=== PATIENT | male | born 1965 | race Caucasian/White ===

== ENCOUNTER 2019-01-26 15:22 | Inpatient (IN) ==
[2019-01-26 17:01] LABS: Albumin Globulin Ratio 0.4 (0.9-2); Albumin Level 1.9 gm/dl (3.4-5.0); BUN Creatinine Ratio 7.3 (10-20); Bilirubin,Total 14.7 mg/dl (0.2-1); Calcium 7.8 mg/dl (8.5-10.1); Est GFR (African American) 135.9; Est GFR (Non-African American) 117.2; Globulin 4.3 gm/dl (2.5-4.0); Total Protein 6.2 gm/dl (6.4-8.2)
[2019-01-26 17:22] LABS: Hematocrit (blood only) 29.9 % (42-52); Hemoglobin 9.8 g/dL (14.0-18.0); Mean Corpuscular Hgb Conc 32.8 g/dL (32-36); Mean Corpuscular Volume 94.6 fL (80-100); Mean Platelet Volume 10.3 fL (7.4-10.4); Platelet Count 78 K/uL (130-400); RDW Coefficient of Variation 17.3 % (11.5-14.5); RDW Standard Deviation 58.9 fL (36.4-46.3); Red Blood Count 3.16 M/uL (4.7-6.1); White Blood Count 4.79 K/uL (4.8-10.8)
[2019-01-26 17:23] LABS: Basophils # (auto) 0.03 K/uL (0-0.2); Basophils % (auto) 0.6 %; Eosinophils # (auto) 0.11 K/uL (0-0.5); Eosinophils % (auto) 2.3 %; Immature Granulocytes # (auto) 0.05 K/uL (0.00-0.02); Lymphocytes # (auto) 0.71 K/uL (1.2-3.4); Lymphocytes % (auto) 14.8 %; Monocytes # (auto) 0.78 K/uL (0.11-0.59); Monocytes % (auto) 16.3 %; Neutrophils # (auto) 3.11 K/uL (1.4-6.5)
[2019-01-26] MEDS ORDERED: SODIUM CHLORIDE 0.9% 1000ML 1,000 ML IV SCH (18:30)
[2019-01-26 18:57] LABS: Appearance Urine Clear (Clear); Color Urine Orange; Protein Urine Negative (Negative); Sulfosalicylic Acid Urine Negative (Negative)
[2019-01-26 18:59] LABS: RBC Urine 0-4 /hpf (0-4); WBC Urine 0-5 /hpf (0-5)
[2019-01-26 19:00] LABS: Bacteria Urine Negative (Negative)
[2019-01-26 19:00] LABS: INR 2.3 (0.9-1.1); Partial Thromboplastin Ratio 1.6; Partial Thromboplastin Time 43.2 Seconds (21.0-31.0); Prothrombin Time 22.4 Seconds (9.0-12.0)
[2019-01-26] MEDS ORDERED: IOVERSOL 100ml IV PRN (19:25)
--- NOTE | 2019-01-26 19:44 | CT Scan Report ---
CT abd pelvis IV con only CLINICAL HISTORY: 53 years-old Male presenting with painless jaundice. TECHNIQUE: Multidetector CT of the abdomen and pelvis was performed after the administration of intra venous contrast. IV contrast: 94 mL of Optiray 320. One or more dose lowering techniques were used co nsistent with the principles of ALARA (as low as reasonably achievable), including automatic exposure control, mA or kV adjustment to individual patient size, and/or use of iterative reconstruction. COMPARISON: None. CT DOSE (mGy.cm): The estimated cumulative dose is 1277.22 mGy.cm. FINDINGS: Stereo Plotter Operator topogram: Unremarkable. Lung bases: Mild multichamber enlargement of the heart. Coronary artery calcification. No pericardial or pleural effusion. No focal infiltrate or nodule at the lung bases. Liver: Cirrhotic morphology of the liver. Well-defined low-density 18 mm and 10 mm lesions in the rig ht hepatic lobe, nonspecific on this single phase exam. Patent hepatic vasculature. Recanalization an d extreme dilatation of the paraumbilical vein. Biliary: No intrahepatic or extrahepatic biliary ductal dilatation. Gallbladder decompressed. Pancreas: Normal. Spleen: Enlarged measuring 17.2 cm in maximal sagittal dimension. Pancreatic duct is nondilated. Adrenal glands: Normal. Kidneys and ureters: Normal. No hydronephrosis. Bladder: Incompletely evaluated secondary to underdistention. Pelvic organs: Prostate and seminal vesicles normal. Bowel: Normal. No bowel obstruction. The appendix is not visualized. Trace wall thickening of the cec um. Feces noted in the terminal ileum. No bowel obstruction. Mild wall thickening of proximal small b owel is suspected. Peritoneal cavity: Small volume of abdominal pelvic ascites, grossly simple appearing. No free intrap eritoneal gas. Lymph nodes: No enlarged lymph nodes in the abdomen or pelvis. Vasculature: Aorta and IVC patent and normal in caliber. Prominent abdominal wall collateral vessels some of which represent caput medusae. Prominent retroperitoneal and perisplenic varices also evident . Limited perigastric varices. Mesenteric varices also noted. Abdominal wall: Moderate body wall edema. Musculoskeletal: Normal. IMPRESSION: 1. Cirrhosis with portal hypertension evidenced by varices, ascites, and moderate splenomegaly. This most likely accounts for the patient's hyperbilirubinemia. 2. No evidence of a pancreatic mass allowing for this single phase examination. No pancreatic or ranulfo iary ductal dilatation. 3. Indeterminate hypodense lesions in the liver, possibly cysts. Evaluation is not tailored for dete ction of hepatocellular carcinoma on this single phase examination. 4. Volume overload with body wall edema. 5. Mild cardiomegaly. Electronically signed by: Lan Sanchez M.D. 01/26/2019 7:42 PM
--- NOTE | 2019-01-26 21:37 | Emergency Department Note ---
Entered by Mayra Sung acting as a scribe for History of Present Illness General Chief complaint: Swelling/Edema to Extremity Stated complaint: RETAINING FLUID SENT BY DR. FRIAS Source: patient History of Present Illness Onset (ago): week(s) (several) Location: abdomen and lower extremity Pain Consistency: + other (worsening) Quality: + other (swelling) Associated symptoms: + fever/chills (positive chills; negative fevers) and + other (positive yellowing of skin and eyes; positive fullness in abdomen; negative abdominal pain; negative change in vision); no chest pain, no headaches, no nausea/vomiting and no shortness of breath The patient is a 53 year old male who presents to the Emergency Room with complaints of worsening swelling that began several weeks prior to arrival. The patient states that this began with cramping in his hands and forearms and progressed to swelling in his legs and abdomen. The patient states that during this time he has felt dehydrated so he has been drinking more fluids. He reports persistent chills during this time, but denies fever. The patient states that he has a feeling of fullness in his abdomen but denies abdominal pain. The patient's mother states approximately 3 days ago the patient's skin and eyes began turning yellow. He denies chest pain, shortness of breath, headache, change in vision, and vomiting. The patient states that he saw his PCP in [place] today and was sent here for further evaluation. The patient denies smoking cigarettes or drinking alcohol. He reports a history of hemochromatosis and states that he has had previous yellow tints to his skin but states that these episodes have resolved on their own. The patient states that he was previously on Lasix, but states that he is unsure if this was stopped by him or by his doctors. 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 Home Medications Home Medications Medication Instructions Recorded Confirmed Type ergocalciferol (vitamin D2) 50,000 unit PO WK 01/26/19 01/26/19 History [Vitamin D2] furosemide 20 mg PO BID 01/26/19 01/26/19 History lactulose 30 ml PO BID 01/26/19 01/26/19 History magnesium oxide 400 mg PO BID 01/26/19 01/26/19 History metoprolol succinate 25 mg PO DAILY 01/26/19 01/26/19 History omeprazole 20 mg PO DAILY 01/26/19 01/26/19 History spironolactone 100 mg PO DAILY 01/26/19 01/26/19 History topiramate 50 mg PO BID 01/26/19 01/26/19 History zinc 50 mg PO BID 01/26/19 01/26/19 History Allergies Allergy/AdvReac Type Severity Reaction Status Date / Time No Known Allergies Allergy Unverified 01/26/19 21:39 Past Med/Surg History Medical History Hemochromatosis (Chronic) Hypertension (Chronic) Family History Other No pertinent family history in first degree relatives Social History Preferred Language: Azeri Communication Ability: Effective Utility Operator Required: No Beliefs That Will Affect Care: None Current Living Situation: Family Other Information That Helps Us Care for You: No Feels Safe at Home: Yes Safety Concerns: Feels Safe At This Time Smoking Status: Unknown if ever smoked Hx Alcohol Use: No (hx of alcoholism) Hx Substance Use: No Review of Systems See HPI for pertinent positives & negatives. and A total of 10 systems reviewed and were otherwise negative Physical Exam Vital Signs Vital Signs - 24 hr 01/26/19 15:31 01/26/19 20:00 01/26/19 22:08 Temperature 36.8 C Temperature Source Oral Pulse Rate 104 H Pulse Rate [Right Finger] 83 105 H Pulse Rhythm [Right Finger] Regular Respiratory Rate 20 20 20 Respiratory Effort / Characteristics Non-Labored Respiratory Depth Normal Blood Pressure 156/84 H Blood Pressure [Right Arm] 146/90 H 156/90 H Blood Pressure Mean 108 Blood Pressure Mean [Right Arm] 108 112 Blood Pressure Position [Right Arm] Lying Pulse Oximetry 99 97 96 Oxygen Delivery Method Room Air Room Air Room Air Sepsis Recent Fever Within 48 Hours No Sepsis New/Unexplained Change in Mental Status No Sepsis Action Taken by Nursing No Action Required Vital signs reviewed. General: Chronically ill-appearing 53 year old male, in no significant distress. HEENT: Positive scleral icterus, PERRLA, neck supple. Atraumatic. Cardiovascular: Regular rate and rhythm, no extra sounds. Pulmonary: Clear to auscultation bilaterally, normal work of breathing. Abdomen: Soft, moderately distended, tender to palpation of the right upper quadrant, positive bowel sounds. Musculoskeletal: Atraumatic. 3+ pitting edema of the bilateral lower extremities. Neurologic: Patient awake alert and oriented x 3. Skin: Warm, dry, no rash Course Course 1834: Past medical records reviewed. The patient was evaluated in room B7. A complete history and physical exam was performed. 1935: I checked on and updated the patient on all results. He is in agreement with the treatment plan. 2057: [facility] for further evaluation. Administered Medications Albumin Human (Albumin 25%) 50 mls @ 50 mls/hr IV Q1H KESHAV Stop: 01/27/19 03:14 Last Admin: 01/27/19 00:12 Dose: 50 mls/hr Documented by: [id number] Discontinued Medications Furosemide (Lasix) Confirm Administered Dose 40 mg IV .[facility] Stop: 01/26/19 22:55 Last Admin: 01/26/19 22:58 Dose: 20 mg Documented by: [id number] Furosemide (Lasix) 20 mg IV NOW STA Stop: 01/26/19 22:57 Last Admin: 01/26/19 23:00 Dose: Not Given Documented by: [id number] Sodium Chloride (Nss 1000ml) 1,000 mls @ 125 mls/hr IV .Q8H KESHAV Stop: 02/25/19 18:29 Last Admin: 01/26/19 20:02 Dose: 125 mls/hr Documented by: [id number] Ioversol (Optiray 320 100ml) 94 ml IV ONCE PRN PRN Reason: Interaction Checking Stop: 01/30/19 19:24 Last Admin: 01/26/19 19:26 Dose: 94 ml Documented by: [id number] Medical Decision Making Differential Diagnosis Differential diagnoses include end stage liver disease, cholangitis, obstructing pancreatic mass, splenic sequestration, and others were considered. Medical Records Attestation: I reviewed the patient's medical records. Home Medications Current Medication List: was personally reviewed by me Laboratory Data Attestation: I reviewed the patient's lab results. Result diagrams: 01/26/19 15:55 01/26/19 15:55 Lab Results 01/26/19 01/26/19 01/26/19 Range/Units 15:55 15:55 15:55 WBC 4.79 L (4.8-10.8) K/uL RBC 3.16 L (4.7-6.1) M/uL Hgb 9.8 L (14.0-18.0) g/dL Hct 29.9 L (42-52) % MCV 94.6 (80-100) fL MCH 31.0 (25-34) pg MCHC 32.8 (32-36) g/dL RDW Std Deviation 58.9 H (36.4-46.3) fL RDW Coeff of Joey 17.3 H (11.5-14.5) % Plt Count 78 L (130-400) K/uL MPV 10.3 (7.4-10.4) fL Immature Gran % (Auto) 1.0 % Neut % (Auto) 65.0 % Lymph % (Auto) 14.8 % [place] % (Auto) 16.3 % Eos % (Auto) 2.3 % Baso % (Auto) 0.6 % Immature Gran # (Auto) 0.05 H (0.00-0.02) K/uL Neut # (Auto) 3.11 (1.4-6.5) K/uL Lymph # (Auto) 0.71 L (1.2-3.4) K/uL [place] # (Auto) 0.78 H (0.11-0.59) K/uL Eos # (Auto) 0.11 (0-0.5) K/uL Baso # (Auto) 0.03 (0-0.2) K/uL PT 22.4 H (9.0-12.0) Seconds INR 2.3 H (0.9-1.1) APTT 43.2 H (21.0-31.0) Seconds PTT Ratio 1.6 Sodium 126 L (136-145) mmol/L Potassium 4.0 (3.5-5.1) mmol/L Chloride 96 L (98-107) mmol/L Carbon Dioxide 22 (21-32) mmol/L Anion Gap 8.0 (3-11) BUN 4 L (7-18) mg/dl Creatinine 0.58 L (0.6-1.4) mg/dl Est Cr Clr Drug Dosing 185.0 ml/min Est GFR ( Amer) 135.9 Est GFR (Non-Af Amer) 117.2 BUN/Creatinine Ratio 7.3 L (10-20) Glucose 96 (70-99) mg/dl Calcium 7.8 L (8.5-10.1) mg/dl Total Bilirubin 14.7 H (0.2-1) mg/dl Direct Bilirubin (0-0.2) mg/dl AST 54 H (15-37) U/L ALT 33 (12-78) U/L Alkaline Phosphatase 151 H (45-117) U/L Total Protein 6.2 L (6.4-8.2) gm/dl Albumin 1.9 L (3.4-5.0) gm/dl Globulin 4.3 H (2.5-4.0) gm/dl Albumin/Globulin Ratio 0.4 L (0.9-2) Urine Color Urine Appearance (Clear) Urine pH (4.5-7.5) Ur Specific [place] (1.000-1.060) Urine Protein (Negative) Urine Glucose (UA) (Negative) Urine Ketones (Negative) Urine Blood (Negative) Urine Nitrite (Negative) Urine Bilirubin (Negative) Urine Urobilinogen (Negative) Ur Leukocyte Esterase (Negative) Urine RBC (0-4) /hpf Urine WBC (0-5) /hpf Ur Epithelial Cells (0-5) /lpf Urine Bacteria (Negative) 01/26/19 01/26/19 Range/Units 15:55 18:40 WBC (4.8-10.8) K/uL RBC (4.7-6.1) M/uL Hgb (14.0-18.0) g/dL Hct (42-52) % MCV (80-100) fL MCH (25-34) pg MCHC (32-36) g/dL RDW Std Deviation (36.4-46.3) fL RDW Coeff of Joey (11.5-14.5) % Plt Count (130-400) K/uL MPV (7.4-10.4) fL Immature Gran % (Auto) % Neut % (Auto) % Lymph % (Auto) % [place] % (Auto) % Eos % (Auto) % Baso % (Auto) % Immature Gran # (Auto) (0.00-0.02) K/uL Neut # (Auto) (1.4-6.5) K/uL Lymph # (Auto) (1.2-3.4) K/uL [place] # (Auto) (0.11-0.59) K/uL Eos # (Auto) (0-0.5) K/uL Baso # (Auto) (0-0.2) K/uL PT (9.0-12.0) Seconds INR (0.9-1.1) APTT (21.0-31.0) Seconds PTT Ratio Sodium (136-145) mmol/L Potassium (3.5-5.1) mmol/L Chloride (98-107) mmol/L Carbon Dioxide (21-32) mmol/L Anion Gap (3-11) BUN (7-18) mg/dl Creatinine (0.6-1.4) mg/dl Est Cr Clr Drug Dosing ml/min Est GFR ( Amer) Est GFR (Non-Af Amer) BUN/Creatinine Ratio (10-20) Glucose (70-99) mg/dl Calcium (8.5-10.1) mg/dl Total Bilirubin (0.2-1) mg/dl Direct Bilirubin 9.4 H (0-0.2) mg/dl AST (15-37) U/L ALT (12-78) U/L Alkaline Phosphatase (45-117) U/L Total Protein (6.4-8.2) gm/dl Albumin (3.4-5.0) gm/dl Globulin (2.5-4.0) gm/dl Albumin/Globulin Ratio (0.9-2) Urine Color [place] Urine Appearance Clear (Clear) Urine pH (4.5-7.5) Ur Specific [place] 1.020 (1.000-1.060) Urine Protein Negative (Negative) Urine Glucose (UA) (Negative) Urine Ketones (Negative) Urine Blood (Negative) Urine Nitrite (Negative) Urine Bilirubin (Negative) Urine Urobilinogen (Negative) Ur Leukocyte Esterase (Negative) Urine RBC 0-4 (0-4) /hpf Urine WBC 0-5 (0-5) /hpf Ur Epithelial Cells 5-10 H (0-5) /lpf Urine Bacteria Negative (Negative) Imaging Data Radiologist's Impression: Radiology results as stated below per my review and the radiologist's interpretation: CT abd pelvis IV con only CLINICAL HISTORY: 53 years-old Male presenting with painless jaundice. TECHNIQUE: Multidetector CT of the abdomen and pelvis was performed after the administration of intravenous contrast. IV contrast: 94 mL of Optiray 320. One or more dose lowering techniques were used consistent with the principles of ALARA (as low as reasonably achievable), including automatic exposure control, mA or kV adjustment to individual patient size, and/or use of iterative rec onstruction. COMPARISON: None. CT DOSE (mGy.cm): The estimated cumulative dose is 1277.22 mGy.cm. FINDINGS: Customer Service Attendant topogram: Unremarkable. Lung bases: Mild multichamber enlargement of the heart. Coronary artery calcification. No pericardial or pleural effusion. No focal infiltrate or nodule at the lung bases. Liver: Cirrhotic morphology of the liver. Well-defined low-density 18 mm and 10 mm lesions in the right hepatic lobe, nonspecific on this single phase exam. Patent hepatic vasculature. Recanalization and extreme dilatation of the paraumbilical vein. Biliary: No intrahepatic or extrahepatic biliary ductal dilatation. Gallbladder decompressed. Pancreas: Normal. Spleen: Enlarged measuring 17.2 cm in maximal sagittal dimension. Pancreatic duct is nondilated. Adrenal glands: Normal. Kidneys and ureters: Normal. No hydronephrosis. Bladder: Incompletely evaluated secondary to underdistention. Pelvic organs: Prostate and seminal vesicles normal. Bowel: Normal. No bowel obstruction. The appendix is not visualized. Trace wall thickening of the cecum. Feces noted in the terminal ileum. No bowel obstruction. Mild wall thickening of proximal small bowel is suspected. Peritoneal cavity: Small volume of abdominal pelvic ascites, grossly simple appearing. No free intraperitoneal gas. Lymph nodes: No enlarged lymph nodes in the abdomen or pelvis. Vasculature: Aorta and IVC patent and normal in caliber. Prominent abdominal wall collateral vessels some of which represent caput medusae. Prominent retroperitoneal and perisplenic varices also evident. Limited perigastric joey ices. Mesenteric varices also noted. Abdominal wall: Moderate body wall edema. Musculoskeletal: Normal. IMPRESSION: 1. Cirrhosis with portal hypertension evidenced by varices, ascites, and moderate splenomegaly. This most likely accounts for the patient's hyperbilirubinemia. 2. No evidence of a pancreatic mass allowing for this single phase examination. No pancreatic or biliary ductal dilatation. 3. Indeterminate hypodense lesions in the liver, possibly cysts. Evaluation is not tailored for detection of hepatocellular carcinoma on this single phase examination. 4. Volume overload with body wall edema. 5. Mild cardiomegaly. Electronically signed by: Lan Sanchez M.D. 01/26/2019 7:42 PM Blood Pressure Blood Pressure Findings: Elevated blood pressure Blood Pressure Disposition: further management by hospitalist JULIET Narrative This patient was evaluated and appeared to be in no significant distress. Patient is chronically ill-appearing with a distended abdomen. He is notably jaundiced and has some mild right upper quadrant tenderness. Laboratory work reveals a marked hyperbilirubinemia. Liver enzymes are otherwise reassuring. Patient's INR is elevated at 2.3 without history of anticoagulation. I suspect the patient is suffering from an acute decompensation of liver function related to his hemochromatosis. Patient's mother states she has difficulty convincing him to be seen by doctors. Patient is slightly anemic although stable. CT scan of the abdomen pelvis is read as cirrhosis with portal hypertension. There is no evidence of pancreatic mass. He was advised of the findings. Impression & Plan End-stage liver disease, Hyperbilirubinemia Discharge Plan Visit Data *Final* Discharge Date/Time: 01/26/19 23:00 Chief Complaint: Swelling/Edema to Extremity Stated Complaint: RETAINING FLUID SENT BY DR. FRIAS ED Provider: Carrol Moscoso Discharge Problem: End-stage liver disease, Hyperbilirubinemia Patient Disposition: Admitted As Inpatient Discharge Instructions Interventions: ED Discharge Assessment Last Done: 01/26/19 23:00 The scribe's documentation has been prepared under my direction and personally reviewed by me in its entirety. I confirm that the note above accurately reflects all work, treatment, procedures, and medical decision making performed by me.
[2019-01-26] MEDS ORDERED: FUROSEMIDE 40 MG/4 ML VIAL IV STA ×2 (22:50→22:56)
[2019-01-26] MEDS ORDERED: FUROSEMIDE 40 MG/4 ML VIAL IV ONE (22:54)
--- NOTE | 2019-01-26 22:55 | History & Physical Report ---
Date of Service January 26, 2019 Assessment & Plan (1) Hemochromatosis: 53-year-old male with history of hemochromatosis, cirrhosis with portal hypertension, varices ascites and splenomegaly, hypertension, GERD presents with concern of worsening edema x3 weeks. Worsening edema in the setting of cirrhosis with portal hypertension, varices, ascites and splenomegaly Cirrhosis likely secondary to hemochromatosis [facility] abdomen: Cirrhosis portal hypertension, varices, ascites moderate splenomegaly, no pancreatic mass, indeterminate hypodense lesions in the livercysts however cannot rule out HCC, volume overloadbowel wall edema, mild cardiomegaly LFT: Total bili 14.1, DB 9.4, AST 54, ALT 33, albumin 1.9, alk phos 151 INR 2.3, creatinine 0.58, sodium 126 -meld score of 31 - 52.6% 3-month mortality Ammonia level pending Hepatitis panel, AFP, EtOH and Tylenol level ordered CT 4 phase for HCC ordered Given a dose of Lasix 20 mg IV Consider further diuresis as indicated Albumin 25% x 3 bags Continue home lactulose and spironolactone GI consulted Heart murmur Concern for palpitations, chest pain or shortness of breath Chest x-ray: Negative EK normal sinus rhythm, QTC 449 poor R wave progression Echo ordered Hypertension Continue home metoprolol History of memory problems, headache? Continue home topiramate and zinc GERD Continue home omeprazole FEN/GI: Albumin 25% x 3, heart healthy diet with sodium and fluid restriction 15 00 cc DVT prophylaxis: Contraindicated, encourage ambulation Code: Full Position: MedSurg with telemetry (2) Hypertension: (3) Cirrhosis: History of Present Illness Chief Complaint: Edema Primary Care Provider: Dom Benton 53-year-old male with history of hemochromatosis, cirrhosis with portal hypertension, varices ascites and splenomegaly, hypertension, GERD presents with concern of worsening edema x3 weeks. Associated with the muscle cramps. Reports he feels dehydrated and has muscle cramps but when drinks fluids he retains more. Reports previous episodes of lower extremity edema which never lasted this long and resolved. This episode has been progressively getting worse and not better. Now having edema all over including abdomen. Patient reports being diagnosed with hemochromatosis and cirrhosis at about age 46. He follows with Dr. Sally Porras GI. He reports watching his salt intake and fluid intake as well. Takes lactulose and has about 4 loose bowel movements per day. Is also on diuretics Lasix and spironolactone at home. Urine is on and off very dark/orange in color depending on his bili levels. Denies any fever, chills, shortness of breath, chest pain, headache, lightheadedness, nausea, vomiting, abdominal pain, constipation, hematuria hematochezia, melena, hematuria and dysuria Allergies Allergy/AdvReac Type Severity Reaction Status Date / Time No Known Allergies Allergy Unverified 01/26/19 21:39 Home Medications Home Medications Medication Instructions Recorded Confirmed Type ergocalciferol (vitamin D2) 50,000 unit PO WK 01/26/19 01/26/19 History [Vitamin D2] furosemide 20 mg PO BID 01/26/19 01/26/19 History lactulose 30 ml PO BID 01/26/19 01/26/19 History magnesium oxide 400 mg PO BID 01/26/19 01/26/19 History metoprolol succinate 25 mg PO DAILY 01/26/19 01/26/19 History omeprazole 20 mg PO DAILY 01/26/19 01/26/19 History spironolactone 100 mg PO DAILY 01/26/19 01/26/19 History topiramate 50 mg PO BID 01/26/19 01/26/19 History zinc 50 mg PO BID 01/26/19 01/26/19 History Past Med/Surg History Medical History Hemochromatosis (Chronic) Hypertension (Chronic) Family History Other No pertinent family history in first degree relatives Social History Preferred Language: Beninese Communication Ability: Effective Manager Transfer Required: No Beliefs That Will Affect Care: None Current Living Situation: Family Other Information That Helps Us Care for You: No Feels Safe at Home: Yes Safety Concerns: Feels Safe At This Time Smoking Status: Unknown if ever smoked Hx Alcohol Use: No (hx of alcoholism) Hx Substance Use: No Review of Systems Review of Systems: As per HPI Physical Exam Physical Exam: General: In NAD Neuro: A&O x 4, mild asterixes Pulm: CTAB equal breath sounds bilaterally CV: RRR, 3/6 systolic murmur, no r/g, Abdomen:+BS, mild TTP in RUQ, distended with shifting dullness, hepatosplenomegaly LE: 2-3+ LE edema with tenderness to palpation Results & Data Vital Signs (Past 12 Hours) Vital Signs Temp Pulse Pulse Resp BP BP Pulse Ox 01/26/19 22:08 105 H 20 156/90 H 96 01/26/19 20:00 83 20 146/90 H 97 01/26/19 15:31 36.8 C 104 H 20 156/84 H 99 Laboratory Results Abnormal lab results 01/26/19 01/26/19 01/26/19 Range/Units 15:55 15:55 15:55 WBC 4.79 L (4.8-10.8) K/uL RBC 3.16 L (4.7-6.1) M/uL Hgb 9.8 L (14.0-18.0) g/dL Hct 29.9 L (42-52) % RDW Std Deviation 58.9 H (36.4-46.3) fL RDW Coeff of Joey 17.3 H (11.5-14.5) % Plt Count 78 L (130-400) K/uL Immature Gran # (Auto) 0.05 H (0.00-0.02) K/uL Lymph # (Auto) 0.71 L (1.2-3.4) K/uL Traverse # (Auto) 0.78 H (0.11-0.59) K/uL PT 22.4 H (9.0-12.0) Seconds INR 2.3 H (0.9-1.1) APTT 43.2 H (21.0-31.0) Seconds Sodium 126 L (136-145) mmol/L Chloride 96 L (98-107) mmol/L BUN 4 L (7-18) mg/dl Creatinine 0.58 L (0.6-1.4) mg/dl BUN/Creatinine Ratio 7.3 L (10-20) Calcium 7.8 L (8.5-10.1) mg/dl Total Bilirubin 14.7 H (0.2-1) mg/dl Direct Bilirubin (0-0.2) mg/dl AST 54 H (15-37) U/L Alkaline Phosphatase 151 H (45-117) U/L Total Protein 6.2 L (6.4-8.2) gm/dl Albumin 1.9 L (3.4-5.0) gm/dl Globulin 4.3 H (2.5-4.0) gm/dl Albumin/Globulin Ratio 0.4 L (0.9-2) Ur Epithelial Cells (0-5) /lpf 01/26/19 01/26/19 Range/Units 15:55 18:40 WBC (4.8-10.8) K/uL RBC (4.7-6.1) M/uL Hgb (14.0-18.0) g/dL Hct (42-52) % RDW Std Deviation (36.4-46.3) fL RDW Coeff of Joey (11.5-14.5) % Plt Count (130-400) K/uL Immature Gran # (Auto) (0.00-0.02) K/uL Lymph # (Auto) (1.2-3.4) K/uL Traverse # (Auto) (0.11-0.59) K/uL PT (9.0-12.0) Seconds INR (0.9-1.1) APTT (21.0-31.0) Seconds Sodium (136-145) mmol/L Chloride (98-107) mmol/L BUN (7-18) mg/dl Creatinine (0.6-1.4) mg/dl BUN/Creatinine Ratio (10-20) Calcium (8.5-10.1) mg/dl Total Bilirubin (0.2-1) mg/dl Direct Bilirubin 9.4 H (0-0.2) mg/dl AST (15-37) U/L Alkaline Phosphatase (45-117) U/L Total Protein (6.4-8.2) gm/dl Albumin (3.4-5.0) gm/dl Globulin (2.5-4.0) gm/dl Albumin/Globulin Ratio (0.9-2) Ur Epithelial Cells 5-10 H (0-5) /lpf Diagnostic Findings CT abd pelvis IV con only CLINICAL HISTORY: 53 years-old Male presenting with painless jaundice. TECHNIQUE: Multidetector CT of the abdomen and pelvis was performed after the administration of intravenous contrast. IV contrast: 94 mL of Optiray 320. One or more dose lowering techniques were used consistent with the principles of ALARA (as low as reasonably achievable), including automatic exposure control, mA or kV adjustment to individual patient size, and/or use of iterative reconstruction. COMPARISON: None. CT DOSE (mGy.cm): The estimated cumulative dose is 1277.22 mGy.cm. FINDINGS: Subscription Crew Leader topogram: Unremarkable. Lung bases: Mild multichamber enlargement of the heart. Coronary artery calcification. No pericardial or pleural effusion. No focal infiltrate or nodule at the lung bases. Liver: Cirrhotic morphology of the liver. Well-defined low-density 18 mm and 10 mm lesions in the right hepatic lobe, nonspecific on this single phase exam. Patent hepatic vasculature. Recanalization and extreme dilatation of the paraumbilical vein. Biliary: No intrahepatic or extrahepatic biliary ductal dilatation. Gallbladder decompressed. Pancreas: Normal. Spleen: Enlarged measuring 17.2 cm in maximal sagittal dimension. Pancreatic duct is nondilated. Adrenal glands: Normal. Kidneys and ureters: Normal. No hydronephrosis. Bladder: Incompletely evaluated secondary to underdistention. Pelvic organs: Prostate and seminal vesicles normal. Bowel: Normal. No bowel obstruction. The appendix is not visualized. Trace wall thickening of the cecum. Feces noted in the terminal ileum. No bowel obstruction. Mild wall thickening of proximal small bowel is suspected. Peritoneal cavity: Small volume of abdominal pelvic ascites, grossly simple appearing. No free intraperitoneal gas. Lymph nodes: No enlarged lymph nodes in the abdomen or pelvis. Vasculature: Aorta and IVC patent and normal in caliber. Prominent abdominal wall collateral vessels some of which represent caput medusae. Prominent retroperitoneal and perisplenic varices also evident. Limited perigastric varices. Mesenteric varices also noted. Abdominal wall: Moderate body wall edema. Musculoskeletal: Normal. IMPRESSION: 1. Cirrhosis with portal hypertension evidenced by varices, ascites, and moderate splenomegaly. This most likely accounts for the patient's hyperbilirubinemia. 2. No evidence of a pancreatic mass allowing for this single phase examination. No pancreatic or biliary ductal dilatation. 3. Indeterminate hypodense lesions in the liver, possibly cysts. Evaluation is not tailored for detection of hepatocellular carcinoma on this single phase examination. 4. Volume overload with body wall edema. 5. Mild cardiomegaly. Medications Administered Current Inpatient Medications Sodium Chloride (Nss 1000ml) 1,000 mls @ 125 mls/hr IV .Q8H KESHAV Stop: 02/25/19 18:29 Last Admin: 01/26/19 20:02 Dose: 125 mls/hr Documented by: Ioversol (Optiray 320 100ml) 94 ml IV ONCE PRN PRN Reason: Interaction Checking Stop: 01/30/19 19:24 Last Admin: 01/26/19 19:26 Dose: 94 ml Documented by: Code Status & VTE Plan Code Status Full code per discussion with patient and mother VTE Prophylaxis Plan VTE Prophylaxis will be ordered: Yes Supervising Physician Co-Signing Physician Notes Patient seen and examined, chart reviewed, case discussed with Dr. Painter and I agree with her assessment and plan as documented above. Briefly, patient is a 53yo C male with h/o hereditary hemochromatosis diagnosed at age 46, known liver cirrhosis/portal HTN and varices presenting with decompensated cirrhosis. Worsening bilirubin/INR/Edema/jaundice. He reports compliance with medications. Denies fevers, abdominal pain, confusion or encephalopathy. On exam he is afebrile, HD stable General -chronically ill in appearance, +jaundice, icterus HEENT - mmm, neck supple Heart - +S1/S2, regular, 3/6 SOREN at RSB Lungs - CTA, diminished in bases Abd - +distention with bulging flanks, fluid wave, dilated tortuous veins Ext - +pitting edema Neuro - AA&O, no asterixis Labs and images reviewed. Assessment/Plan -Check CT abdomen to assess for HCC -Check AFP -Continue diuresis, cautiously, monitor renal function -GI consultation appreciated -Sodium and fluid restriction -Discussed with patient possible need for transfer to a transplant-capable facility -Remainder of plan as above Resident Activity Tracking Resident Involvement: Resident Care Provided Care Provided: Adult Hospital Medicine
[2019-01-27] MEDS: ALBUMIN 25% 50 ML IV SCH ×4 (00:12→02:30)
[2019-01-27] MEDS: TOPIRAMATE 50 MG TAB PO SCH ×3 (01:03→21:41)
[2019-01-27] MEDS ORDERED: IOVERSOL 100ml IV PRN (01:31)
[2019-01-27 02:39] LABS: Hepatitis B Surface Antigen Neg (Neg)
[2019-01-27 03:07] LABS: Hepatitis C IgG 13Yrs+Old_Rflx Neg (Neg)
--- NOTE | 2019-01-27 06:15 | XRay Report ---
XR chest 1V portable CLINICAL HISTORY: concern for pulmonary edema dyspnea. Pain. COMPARISON STUDY: No previous studies for comparison. FINDINGS: The bones soft tissues and hemidiaphragms are normal. The cardiomediastinal silhouette is n ormal. The lungs are clear. The pulmonary vasculature is normal. IMPRESSION: Negative chest. The above report was generated using voice recognition software. It may contain grammatical, syntax or spelling errors. Electronically signed by: Clint Lara M.D. 01/27/2019 6:13 AM
--- NOTE | 2019-01-27 06:36 | CT Scan Report ---
CT abdomen wo/w con CT DOSE: 4174.17 mGy.cm HISTORY: [address] for hcc, hx of cirrhosis TECHNIQUE: Multiaxial CT images of the abdomen was performed pre and post intravenous contrast enhanc ement. A dose lowering technique was utilized adhering to the principles of ALARA. COMPARISON STUDY: 01/26/2019 FINDINGS: No significant change from the prior study. Lung bases are clear. Findings of hepatic cirrh osis as well as hepatic cysts are unchanged. No significant space-occupying lesion of the liver is ap preciated. Multiple collateral vessels are present. Moderate ascites unchanged. Spleen is uniform. Kidneys enhan ce uniformly. No evidence for hydronephrosis. Multiple collateral vessels consistent with portal hypertension. Unchanged body wall anasarca. IMPRESSION: 1. No change compared to the prior study. 2. Hepatic cirrhosis, ascites, and findings of portal hypertension. 3. Unchanged findings of body wall anasarca 4. Multiple collateral vessels throughout the upper abdomen unchanged. 5. No significant space-occupying lesion of the liver. The above report was generated using voice recognition software. It may contain grammatical, syntax or spelling errors. Electronically signed by: Clint Lara M.D. 01/27/2019 6:34 AM
--- NOTE | 2019-01-27 07:02 | Billing Data ---
Coding Level of Care Code 88446 Initial Inpt Care Lvl 3
[2019-01-27 07:35] LABS: Hematocrit (blood only) 23.3 % (42-52); Hemoglobin 7.8 g/dL (14.0-18.0); Mean Corpuscular Hemoglobin 31.5 pg (25-34); Mean Corpuscular Hgb Conc 33.5 g/dL (32-36); RDW Coefficient of Variation 17.3 % (11.5-14.5); RDW Standard Deviation 59.1 fL (36.4-46.3); Red Blood Count 2.48 M/uL (4.7-6.1); White Blood Count 2.22 K/uL (4.8-10.8)
[2019-01-27] MEDS ORDERED: INFLUENZA ADMINISTRATION CHARGE ONE (07:45)
[2019-01-27] MEDS ORDERED: INFLUENZA VIRUS QUAD VACCINE 0.5 ML SYR IM ONE (07:45)
[2019-01-27 07:58] LABS: Mean Platelet Volume 9.5 fL (7.4-10.4); Platelet Count 44 K/uL (130-400)
[2019-01-27 07:59] LABS: Basophils # (auto) 0.01 K/uL (0-0.2); Basophils % (auto) 0.5 %; Eosinophils # (auto) 0.07 K/uL (0-0.5); Eosinophils % (auto) 3.2 %; Lymphocytes # (auto) 0.45 K/uL (1.2-3.4); Lymphocytes % (auto) 20.3 %; Monocytes # (auto) 0.39 K/uL (0.11-0.59); Monocytes % (auto) 17.6 %; Neutrophils % (auto) 58.4 %
[2019-01-27 08:01] LABS: Albumin Level 1.9 gm/dl (3.4-5.0); BUN Creatinine Ratio 7.1 (10-20); Bilirubin Direct 7.6 mg/dl (0-0.2); Calcium 7.5 mg/dl (8.5-10.1); Creatinine Clr Calc Pharmacy 187.4 ml/min; Est GFR (African American) 136.8; Est GFR (Non-African American) 118.1; Potassium 3.3 mmol/L (3.5-5.1)
[2019-01-27 08:04] LABS: Bilirubin,Total 12.8 mg/dl (0.2-1); Total Protein 5.2 gm/dl (6.4-8.2)
[2019-01-27 08:06] LABS: INR 2.4 (0.9-1.1); Prothrombin Time 23.4 Seconds (9.0-12.0)
[2019-01-27] MEDS: MAGNESIUM OXIDE 400 MG TAB PO SCH ×2 (08:14→21:41)
[2019-01-27] MEDS: METOPROLOL SUCC 25MG EXT REL TAB PO SCH (08:15)
[2019-01-27] MEDS: ZINC SULFATE 220 MG CAPSULE PO SCH ×2 (08:15→21:42)
[2019-01-27] MEDS: PANTOprazole 40 MG TAB PO SCH (08:15)
[2019-01-27] MEDS: SPIRONOLACTONE 100 MG TAB PO SCH (08:15)
[2019-01-27] MEDS: LACTULOSE SYRUP 20 GM/30 ML UDC PO SCH ×3 (08:16→21:42)
--- NOTE | 2019-01-27 08:16 | Medical Student Progress Note ---
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 and alcohol abuse, hypertension, admitted for exacerbation of fluid retention Cirrhosis, End stage liver disease, Hyperbilirubinemia, Hyperammonemia secondary to Hemochromatosis Total bili: 12.8, DB: 7.6, AST: 44, ALT: 27, albumin: 1.9, alk phos: 119, INR: 2.4, Cr: 0.57, Na: 128 MELD score: 30, 52.6% estimated [address]: No significant space-occupying lesion of the liver continue surveillance with ultrasonography every six months for hepatocellular carcinoma Tests ordered: Hepatitis, Acetaminophen, AFP, CMV, EBV, HSV Urine culture and Blood culture to determine cause of cirrhosis Xifaxan 550mg PO BID lactulose 20gm PO BID, titrated to 3-5 bowel movements daily strict alcohol avoidance Low sodium diet outpatient referral transplant list Worsening Edema of both lower extremities Likely from ? worsening liver function for alc use. no concern of noncompliance with medication. IV Lasix 20mg and 40mg given continue spironolactone 100mg PO DAILY Monitor I&O Low NA diet, less than 2G BNP: 165 Hypoalbuminemia albumin on 01/26: 1.9 Albumin 25% IV Q1H 50mls/HR 3 bags completed left leg pain ? pain from worsening leg edema. follow. Hypertension continue metoprolol 25mg PO DAILY Systolic heart murmur Echocardiogram: mild valvular aortic stenosis Anemia Hgb: 7.8, drop from 9.8 on 01/26, 16.0 in 04/2017 normocytic outpatient EGD, colonoscopy Thrombocytopenia continue to monitor for signs and symptoms of bleeding Platelets currently 44 DVT ppx contraindicated because Platelet < 50 Headache continue topiramate 50mg PO BID GERD continue omeprazole 20mg PO DAILY Hypokalemia KCl 40meq PO FEN/GI: Albumin 25% x 3, heart healthy diet with sodium and fluid restriction 1500 cc DVT prophylaxis: Contraindicated, encourage ambulation Code: Full Position: MedSurg with telemetry (2) Cirrhosis: (3) End-stage liver disease: (4) Hyperbilirubinemia: (5) Hypertension: (6) Anemia: (7) Thrombocytopenia: (8) Hypoalbuminemia: (9) Edema: (10) GERD (gastroesophageal reflux disease): (11) Headache: (12) Hypokalemia: (13) Left leg pain: (14) Hyperammonemia: Supervising Attestation Medical students Supervision Note: I independently interviewed and examined the patient and verified the srinivasan history and physical, reviewed labs and image studies, discussed the case with the Doroteo Prince and agree with the findings and care plan. continues to have leg pain. has had alcohol use in nov. o/e - comfortable abdomen with engorged veins. soft. leg edema ++ follow I and O for diuresis with lasix. GI input reviewed follow. Subjective CC: retaining fluid Mr. Lam Ashraf is a 53 y/o male with a history of hemochromatosis, cirrhosis, end stage liver disease, HTN who was admitted on 01/26 for worsening retention of fluid. Pt states he had been experiencing more muscle cramping within the past few days because he was dehydrated, so he had been taking in more fluids. Pt states he had not had issues with fluid retention for the past 2-3 weeks, but fluid retention got significantly worse the past few days to the point he had a difficult time walking because his ankles were painfully swollen. Pt states he had not been taking lactulose recently because it gives him diarrhea. Pt states his friend had also noticed his eyes had started to become yellow the past few days. Pt states he had been diagnosed with hemochromatosis and cirrhosis when he was 46, at which point he made some significant lifestyle modifications, such as avoid red meats, decreasing sodium intake and cutting out alcohol. Pt states he does not have a history of alcoholism, but used to consume 6-8 beers on the weekends before his diagnosis of hemochromatosis. Pt states he feels the swelling in his legs has gone down since yesterday since he is able to move his ankles without pain. Pt does not endorse any abdominal pain, no headache, no chest pain, no SOB, no arthralgia. Review of Systems Constitutional: + chills Respiratory: no dyspnea and no pain on inspiration Cardiovascular: + edema; no chest pain, no dyspnea and no palpitations Gastrointestinal: + bloating Hematologic / Lymphatic: + easy bruising Physical Exam Constitutional: + ill appearing Eyes: sclerae not anicteric Respiratory: normal respiratory effort, lungs clear to auscultation Cardiovascular: Rate/Rhythm: regular rate and regular rhythm Heart Sounds: + murmur (systolic murmur) Vessels: dorsalis pedis pulses present, brachial pulses present and popliteal pulses present; no carotid bruit Extremities: + edema (pitting edema) Chest (Breasts): Additional Comments: gynecomastia Gastrointestinal (Abdomen): Inspection/Auscultation: + abdomen distended, normal bowel sounds and + caput medusae present Percussion/Palpation: + abdomen tender (RUQ), + abdomen rigid, + hepatosplenomegaly and + ascites (shifting dullness) Musculoskeletal: left lower extremity tender to palpation Skin: spider angiomas present across chest Neurologic: Motor/Sensory: + asterixis Results & Data Vital Signs (Past 12 Hours) Vital Signs Temp Pulse Pulse Resp BP BP Pulse Ox 01/27/19 07:23 37.1 C 93 H 20 106/72 98 01/27/19 07:16 99 H 01/27/19 04:19 37 C 100 H 20 124/67 97 01/26/19 23:51 37 C 107 H 18 93 01/26/19 22:08 105 H 20 156/90 H 96 Laboratory Results 01/27/19 01/27/19 01/27/19 Range/Units 07:06 07:06 07:06 WBC 2.22 L (4.8-10.8) K/uL RBC 2.48 L (4.7-6.1) M/uL Hgb 7.8 L (14.0-18.0) g/dL Hct 23.3 L (42-52) % MCV 94.0 (80-100) fL MCH 31.5 (25-34) pg MCHC 33.5 (32-36) g/dL RDW Std Deviation 59.1 H (36.4-46.3) fL RDW Coeff of Joey 17.3 H (11.5-14.5) % Plt Count 44 L (130-400) K/uL MPV 9.5 (7.4-10.4) fL Immature Gran % (Auto) 0.0 % Neut % (Auto) 58.4 % Lymph % (Auto) 20.3 % Monroe % (Auto) 17.6 % Eos % (Auto) 3.2 % Baso % (Auto) 0.5 % Immature Gran # (Auto) 0.00 (0.00-0.02) K/uL Neut # (Auto) 1.30 L (1.4-6.5) K/uL Lymph # (Auto) 0.45 L (1.2-3.4) K/uL Monroe # (Auto) 0.39 (0.11-0.59) K/uL Eos # (Auto) 0.07 (0-0.5) K/uL Baso # (Auto) 0.01 (0-0.2) K/uL PT 23.4 H (9.0-12.0) Seconds INR 2.4 H (0.9-1.1) APTT (21.0-31.0) Seconds PTT Ratio Sodium 128 L (136-145) mmol/L Potassium 3.3 L D (3.5-5.1) mmol/L Chloride 98 (98-107) mmol/L Carbon Dioxide 23 (21-32) mmol/L Anion Gap 7.0 (3-11) BUN 4 L (7-18) mg/dl Creatinine 0.57 L (0.6-1.4) mg/dl Est Cr Clr Drug Dosing 187.4 ml/min Est GFR ( Amer) 136.8 Est GFR (Non-Af Amer) 118.1 BUN/Creatinine Ratio 7.1 L (10-20) Glucose 108 H (70-99) mg/dl Calcium 7.5 L (8.5-10.1) mg/dl Total Bilirubin 12.8 H (0.2-1) mg/dl Direct Bilirubin 7.6 H (0-0.2) mg/dl AST 44 H (15-37) U/L ALT 27 (12-78) U/L Alkaline Phosphatase 119 H (45-117) U/L Ammonia (11-32) umol/L Total Protein 5.2 L (6.4-8.2) gm/dl Albumin 1.9 L (3.4-5.0) gm/dl Globulin (2.5-4.0) gm/dl Albumin/Globulin Ratio (0.9-2) Tumor Marker AFP Urine Color Urine Appearance (Clear) Urine pH (4.5-7.5) Ur Specific [place] (1.000-1.060) Urine Protein (Negative) Urine Glucose (UA) (Negative) Urine Ketones (Negative) Urine Blood (Negative) Urine Nitrite (Negative) Urine Bilirubin (Negative) Urine Urobilinogen (Negative) Ur Leukocyte Esterase (Negative) Urine RBC (0-4) /hpf Urine WBC (0-5) /hpf Ur Epithelial Cells (0-5) /lpf Urine Bacteria (Negative) Acetaminophen Ethyl Alcohol mg/dL (0-3) mg/dl Hepatitis A IgM Ab Hep Bs Antigen (Neg) Hep B Core IgM Ab Hepatitis C Antibody (Neg) Miscellaneous Test 01/27/19 01/27/19 01/27/19 Range/Units 00:28 00:28 00:28 WBC (4.8-10.8) K/uL RBC (4.7-6.1) M/uL Hgb (14.0-18.0) g/dL Hct (42-52) % MCV (80-100) fL MCH (25-34) pg MCHC (32-36) g/dL RDW Std Deviation (36.4-46.3) fL RDW Coeff of Joey (11.5-14.5) % Plt Count (130-400) K/uL MPV (7.4-10.4) fL Immature Gran % (Auto) % Neut % (Auto) % Lymph % (Auto) % Monroe % (Auto) % Eos % (Auto) % Baso % (Auto) % Immature Gran # (Auto) (0.00-0.02) K/uL Neut # (Auto) (1.4-6.5) K/uL Lymph # (Auto) (1.2-3.4) K/uL Monroe # (Auto) (0.11-0.59) K/uL Eos # (Auto) (0-0.5) K/uL Baso # (Auto) (0-0.2) K/uL PT (9.0-12.0) Seconds INR (0.9-1.1) APTT (21.0-31.0) Seconds PTT Ratio Sodium (136-145) mmol/L Potassium (3.5-5.1) mmol/L Chloride (98-107) mmol/L Carbon Dioxide (21-32) mmol/L Anion Gap (3-11) BUN (7-18) mg/dl Creatinine (0.6-1.4) mg/dl Est Cr Clr Drug Dosing ml/min Est GFR ( Amer) Est GFR (Non-Af Amer) BUN/Creatinine Ratio (10-20) Glucose (70-99) mg/dl Calcium (8.5-10.1) mg/dl Total Bilirubin (0.2-1) mg/dl Direct Bilirubin (0-0.2) mg/dl AST (15-37) U/L ALT (12-78) U/L Alkaline Phosphatase (45-117) U/L Ammonia (11-32) umol/L Total Protein (6.4-8.2) gm/dl Albumin (3.4-5.0) gm/dl Globulin (2.5-4.0) gm/dl Albumin/Globulin Ratio (0.9-2) Tumor Marker AFP Urine Color Urine Appearance (Clear) Urine pH (4.5-7.5) Ur Specific [place] (1.000-1.060) Urine Protein (Negative) Urine Glucose (UA) (Negative) Urine Ketones (Negative) Urine Blood (Negative) Urine Nitrite (Negative) Urine Bilirubin (Negative) Urine Urobilinogen (Negative) Ur Leukocyte Esterase (Negative) Urine RBC (0-4) /hpf Urine WBC (0-5) /hpf Ur Epithelial Cells (0-5) /lpf Urine Bacteria (Negative) Acetaminophen Cancelled Ethyl Alcohol mg/dL < 3.0 (0-3) mg/dl Hepatitis A IgM Ab Hep Bs Antigen (Neg) Hep B Core IgM Ab Hepatitis C Antibody (Neg) Miscellaneous Test Pending 01/27/19 01/26/19 01/26/19 Range/Units 00:28 18:40 15:55 WBC (4.8-10.8) K/uL RBC (4.7-6.1) M/uL Hgb (14.0-18.0) g/dL Hct (42-52) % MCV (80-100) fL MCH (25-34) pg MCHC (32-36) g/dL RDW Std Deviation (36.4-46.3) fL RDW Coeff of Joey (11.5-14.5) % Plt Count (130-400) K/uL MPV (7.4-10.4) fL Immature Gran % (Auto) % Neut % (Auto) % Lymph % (Auto) % Monroe % (Auto) % Eos % (Auto) % Baso % (Auto) % Immature Gran # (Auto) (0.00-0.02) K/uL Neut # (Auto) (1.4-6.5) K/uL Lymph # (Auto) (1.2-3.4) K/uL Monroe # (Auto) (0.11-0.59) K/uL Eos # (Auto) (0-0.5) K/uL Baso # (Auto) (0-0.2) K/uL PT (9.0-12.0) Seconds INR (0.9-1.1) APTT (21.0-31.0) Seconds PTT Ratio Sodium (136-145) mmol/L Potassium (3.5-5.1) mmol/L Chloride (98-107) mmol/L Carbon Dioxide (21-32) mmol/L Anion Gap (3-11) BUN (7-18) mg/dl Creatinine (0.6-1.4) mg/dl Est Cr Clr Drug Dosing ml/min Est GFR ( Amer) Est GFR (Non-Af Amer) BUN/Creatinine Ratio (10-20) Glucose (70-99) mg/dl Calcium (8.5-10.1) mg/dl Total Bilirubin (0.2-1) mg/dl Direct Bilirubin (0-0.2) mg/dl AST (15-37) U/L ALT (12-78) U/L Alkaline Phosphatase (45-117) U/L Ammonia 104.0 H (11-32) umol/L Total Protein (6.4-8.2) gm/dl Albumin (3.4-5.0) gm/dl Globulin (2.5-4.0) gm/dl Albumin/Globulin Ratio (0.9-2) Tumor Marker AFP Pending Urine Color Gabriels Urine Appearance Clear (Clear) Urine pH (4.5-7.5) Ur Specific [place] 1.020 (1.000-1.060) Urine Protein Negative (Negative) Urine Glucose (UA) (Negative) Urine Ketones (Negative) Urine Blood (Negative) Urine Nitrite (Negative) Urine Bilirubin (Negative) Urine Urobilinogen (Negative) Ur Leukocyte Esterase (Negative) Urine RBC 0-4 (0-4) /hpf Urine WBC 0-5 (0-5) /hpf Ur Epithelial Cells 5-10 H (0-5) /lpf Urine Bacteria Negative (Negative) Acetaminophen Ethyl Alcohol mg/dL (0-3) mg/dl Hepatitis A IgM Ab Pending Hep Bs Antigen (Neg) Hep B Core IgM Ab Pending Hepatitis C Antibody (Neg) Miscellaneous Test 01/26/19 01/26/19 01/26/19 Range/Units 15:55 15:55 15:55 WBC (4.8-10.8) K/uL RBC (4.7-6.1) M/uL Hgb (14.0-18.0) g/dL Hct (42-52) % MCV (80-100) fL MCH (25-34) pg MCHC (32-36) g/dL RDW Std Deviation (36.4-46.3) fL RDW Coeff of Joey (11.5-14.5) % Plt Count (130-400) K/uL MPV (7.4-10.4) fL Immature Gran % (Auto) % Neut % (Auto) % Lymph % (Auto) % Monroe % (Auto) % Eos % (Auto) % Baso % (Auto) % Immature Gran # (Auto) (0.00-0.02) K/uL Neut # (Auto) (1.4-6.5) K/uL Lymph # (Auto) (1.2-3.4) K/uL Monroe # (Auto) (0.11-0.59) K/uL Eos # (Auto) (0-0.5) K/uL Baso # (Auto) (0-0.2) K/uL PT 22.4 H (9.0-12.0) Seconds INR 2.3 H (0.9-1.1) APTT 43.2 H (21.0-31.0) Seconds PTT Ratio 1.6 Sodium (136-145) mmol/L Potassium (3.5-5.1) mmol/L Chloride (98-107) mmol/L Carbon Dioxide (21-32) mmol/L Anion Gap (3-11) BUN (7-18) mg/dl Creatinine (0.6-1.4) mg/dl Est Cr Clr Drug Dosing ml/min Est GFR ( Amer) Est GFR (Non-Af Amer) BUN/Creatinine Ratio (10-20) Glucose (70-99) mg/dl Calcium (8.5-10.1) mg/dl Total Bilirubin (0.2-1) mg/dl Direct Bilirubin 9.4 H (0-0.2) mg/dl AST (15-37) U/L ALT (12-78) U/L Alkaline Phosphatase (45-117) U/L Ammonia (11-32) umol/L Total Protein (6.4-8.2) gm/dl Albumin (3.4-5.0) gm/dl Globulin (2.5-4.0) gm/dl Albumin/Globulin Ratio (0.9-2) Tumor Marker AFP Urine Color Urine Appearance (Clear) Urine pH (4.5-7.5) Ur Specific [place] (1.000-1.060) Urine Protein (Negative) Urine Glucose (UA) (Negative) Urine Ketones (Negative) Urine Blood (Negative) Urine Nitrite (Negative) Urine Bilirubin (Negative) Urine Urobilinogen (Negative) Ur Leukocyte Esterase (Negative) Urine RBC (0-4) /hpf Urine WBC (0-5) /hpf Ur Epithelial Cells (0-5) /lpf Urine Bacteria (Negative) Acetaminophen Ethyl Alcohol mg/dL (0-3) mg/dl Hepatitis A IgM Ab Hep Bs Antigen Neg (Neg) Hep B Core IgM Ab Hepatitis C Antibody Neg (Neg) Miscellaneous Test 01/26/19 01/26/19 Range/Units 15:55 15:55 WBC 4.79 L (4.8-10.8) K/uL RBC 3.16 L (4.7-6.1) M/uL Hgb 9.8 L (14.0-18.0) g/dL Hct 29.9 L (42-52) % MCV 94.6 (80-100) fL MCH 31.0 (25-34) pg MCHC 32.8 (32-36) g/dL RDW Std Deviation 58.9 H (36.4-46.3) fL RDW Coeff of Joey 17.3 H (11.5-14.5) % Plt Count 78 L (130-400) K/uL MPV 10.3 (7.4-10.4) fL Immature Gran % (Auto) 1.0 % Neut % (Auto) 65.0 % Lymph % (Auto) 14.8 % Monroe % (Auto) 16.3 % Eos % (Auto) 2.3 % Baso % (Auto) 0.6 % Immature Gran # (Auto) 0.05 H (0.00-0.02) K/uL Neut # (Auto) 3.11 (1.4-6.5) K/uL Lymph # (Auto) 0.71 L (1.2-3.4) K/uL Monroe # (Auto) 0.78 H (0.11-0.59) K/uL Eos # (Auto) 0.11 (0-0.5) K/uL Baso # (Auto) 0.03 (0-0.2) K/uL PT (9.0-12.0) Seconds INR (0.9-1.1) APTT (21.0-31.0) Seconds PTT Ratio Sodium 126 L (136-145) mmol/L Potassium 4.0 (3.5-5.1) mmol/L Chloride 96 L (98-107) mmol/L Carbon Dioxide 22 (21-32) mmol/L Anion Gap 8.0 (3-11) BUN 4 L (7-18) mg/dl Creatinine 0.58 L (0.6-1.4) mg/dl Est Cr Clr Drug Dosing 185.0 ml/min Est GFR ( Amer) 135.9 Est GFR (Non-Af Amer) 117.2 BUN/Creatinine Ratio 7.3 L (10-20) Glucose 96 (70-99) mg/dl Calcium 7.8 L (8.5-10.1) mg/dl Total Bilirubin 14.7 H (0.2-1) mg/dl Direct Bilirubin (0-0.2) mg/dl AST 54 H (15-37) U/L ALT 33 (12-78) U/L Alkaline Phosphatase 151 H (45-117) U/L Ammonia (11-32) umol/L Total Protein 6.2 L (6.4-8.2) gm/dl Albumin 1.9 L (3.4-5.0) gm/dl Globulin 4.3 H (2.5-4.0) gm/dl Albumin/Globulin Ratio 0.4 L (0.9-2) Tumor Marker AFP Urine Color Urine Appearance (Clear) Urine pH (4.5-7.5) Ur Specific [place] (1.000-1.060) Urine Protein (Negative) Urine Glucose (UA) (Negative) Urine Ketones (Negative) Urine Blood (Negative) Urine Nitrite (Negative) Urine Bilirubin (Negative) Urine Urobilinogen (Negative) Ur Leukocyte Esterase (Negative) Urine RBC (0-4) /hpf Urine WBC (0-5) /hpf Ur Epithelial Cells (0-5) /lpf Urine Bacteria (Negative) Acetaminophen Ethyl Alcohol mg/dL (0-3) mg/dl Hepatitis A IgM Ab Hep Bs Antigen (Neg) Hep B Core IgM Ab Hepatitis C Antibody (Neg) Miscellaneous Test Diagnostic Findings Abdomen CT: IMPRESSION: 1. Cirrhosis with portal hypertension evidenced by varices, ascites, and moderate splenomegaly. This most likely accounts for the patient's hyperbilirub inemia. 2. No evidence of a pancreatic mass allowing for this single phase examination. No pancreatic or biliary ductal dilatation. 3. Indeterminate hypodense lesions in the liver, possibly cysts. Evaluation is not tailored for detection of hepatocellular carcinoma on this single phase examination. 4. Volume overload with body wall edema. 5. Mild cardiomegaly. CXR: IMPRESSION: Negative chest.
[2019-01-27] MEDS ORDERED: LACTULOSE SYRUP 20 GM/30 ML UDC PO SCH (09:00)
--- NOTE | 2019-01-27 09:01 | Hospitalist Progress Note ---
Date of Service January 27, 2019 Results & Data Vital Signs (Past 12 Hours) Vital Signs Temp Pulse Pulse Resp BP BP Pulse Ox 01/27/19 07:23 37.1 C 93 H 20 106/72 98 01/27/19 07:16 99 H 01/27/19 04:19 37 C 100 H 20 124/67 97 01/26/19 23:51 37 C 107 H 18 93 01/26/19 22:08 105 H 20 156/90 H 96 Resident Activity Tracking Resident Involvement: Resident Care Provided Care Provided: Adult Hospital Medicine
--- NOTE | 2019-01-27 09:51 | Gastrointestinal Consultation ---
Date of Consultation January 27, 2019 Assessment & Plan (1) Cirrhosis: 53 year old w/ history of hemochromatosis gene +, ETOH cirrhosis last ETOH in November admitted w/ fluid overload despite outpatient compliance with diuretics. He has not been following a low NA diet Fluid overload Check BNP Recommend an Echo Consider IV lasix as an inpatient Can continue PO Aldactone 100 mg Monitor I&O Low NA diet, less than 2G Elevated LFTs History of cirrhosis MELD 30 Patent hepatic vasculature on CT Questionable hepatic lesion on CT Acute hep panel pending Tylenol level added CMV, EBV, HSV added Elevated Ammonia, history of HE Recommend Head CT Recommend Urine culture Recommend Blood culture Recommend Chest XR Doubt enough fluid for diagnostic paracentesis Xifaxan 550 BID Lactulose titrated to 3-5 bowel movements daily Normocytic anemia Denies any black/bloody stools Will need OP EGD/Colon Liver lesion Check AFP Consider MRI abd Cirrhosis management Strict ETOH avoidance MELD labs and HCC screen every 6 months Low NA diet OP referral to transplant Thank you for allowing us to participate in the care of this patient. Please call with any acute changes, questions or concerns. Please see addendum below with additional recommendation from my supervising physician. Supervising Physician Co-Signing Physician Notes Late entry: Patient was seen and examined on 01/27 with TIFFANIE Francis whose note reflects our findings and plan. Known cirrhosis now with ascites and worsening liver parameters. Abd distended. + ascites History of Present Illness Reason for Consultation: cirrhosis, edema Requesting Physician: Cortez Attending Physician: Opal Toro MD History of Present Illness 53 year old male with history of ETOH cirrhosis, last ETOH was in 1 beer in November, hemochromatosis gene + admitted through the ED for lower extremity edema - GI asked to evaluate. Pt notes last seen in hepatology clinic last year, notes that he does take his diuretics as prescribed but has not been following a low NA diet. Also suggests that he has been sober from ETOH with the exception of a single beer on his Birthday in November. Notes about 3/4 weeks ago started having bilateral lower extremity edema. Denies any abdomina pain/pressure or swelling. Has never had a paracentesis. Overall feels well - no pain, nausea, voming. Tolerating PO intake. Moves bowels daily, formed brown stool. Adamantly denies black/bloody stools. Cirrhosis: ETOH induced, hemochromatosis gene + last ETOH use in November Decompensations Varices: present in 2017 Edema/Ascites: lasix 20, aldactone 100 HE: xifaxan, did not tolerate lactulose due to diarrhea Liver lesion: seen on noncon CT, 4phase CT without appreciation Screening Immunizations: unknown Varices: due HCC: due MELD: 30 Allergies Allergy/AdvReac Type Severity Reaction Status Date / Time No Known Allergies Allergy Unverified 01/26/19 21:39 Home Medications Home Medications Medication Instructions Recorded Confirmed Type ergocalciferol (vitamin D2) 50,000 unit PO WK 01/26/19 01/26/19 History [Vitamin D2] furosemide 20 mg PO BID 01/26/19 01/26/19 History lactulose 30 ml PO BID 01/26/19 01/26/19 History magnesium oxide 400 mg PO BID 01/26/19 01/26/19 History metoprolol succinate 25 mg PO DAILY 01/26/19 01/26/19 History omeprazole 20 mg PO DAILY 01/26/19 01/26/19 History spironolactone 100 mg PO DAILY 01/26/19 01/26/19 History topiramate 50 mg PO BID 01/26/19 01/26/19 History zinc 50 mg PO BID 01/26/19 01/26/19 History Patient History Medical History Hemochromatosis (Chronic) Hypertension (Chronic) Family History Other No pertinent family history in first degree relatives Social History Preferred Language: Danish Communication Ability: Effective Hand Baseball [employer] Required: No Beliefs That Will Affect Care: None Current Living Situation: Family Other Information That Helps Us Care for You: No Feels Safe at Home: Yes Safety Concerns: Feels Safe At This Time Smoking Status: Unknown if ever smoked Hx Alcohol Use: No (hx of alcoholism) Hx Substance Use: No Review of Systems Constitutional: no chills, no fatigue and no anorexia Respiratory: no cough, no dyspnea and no dyspnea on exertion Cardiovascular: + edema; no chest pain, no radiating jaw, neck or arm pain and no dyspnea on exertion Gastrointestinal: no abdominal pain, no vomiting, no coffee ground emesis, no hematemesis, no change in stools, no blood in stools and no melena Physical Exam Constitutional: no acute distress Eyes: + scleral icterus Neck: trachea midline Respiratory: normal respiratory effort Cardiovascular: Rate/Rhythm: regular rate and regular rhythm Extremities: + edema (pitting, bilateral) Gastrointestinal (Abdomen): normal bowel sounds, soft, nontender, no hepatosplenomegaly Skin: + jaundice Results & Data Vital Signs (Past 12 Hours) Vital Signs Temp Pulse Pulse Resp BP BP Pulse Ox 01/27/19 07:23 37.1 C 93 H 20 106/72 98 01/27/19 07:16 99 H 01/27/19 04:19 37 C 100 H 20 124/67 97 01/26/19 23:51 37 C 107 H 18 93 01/26/19 22:08 105 H 20 156/90 H 96
[2019-01-27] MEDS ORDERED: POTASSIUM CHLORIDE 20 MEQ TABCR PO STA (15:14)
[2019-01-27] MEDS: RIFAXIMIN 550 MG TABLET PO SCH (21:41)
[2019-01-28 07:24] LABS: Hematocrit (blood only) 26.8 % (42-52); Hemoglobin 8.8 g/dL (14.0-18.0); Mean Corpuscular Hemoglobin 31.4 pg (25-34); Mean Corpuscular Hgb Conc 32.8 g/dL (32-36); Mean Corpuscular Volume 95.7 fL (80-100); RDW Coefficient of Variation 17.8 % (11.5-14.5); RDW Standard Deviation 61.1 fL (36.4-46.3); White Blood Count 3.15 K/uL (4.8-10.8)
[2019-01-28 07:38] LABS: Platelet Count 66 K/uL (130-400)
[2019-01-28 07:54] LABS: BUN Creatinine Ratio 6.2 (10-20); Calcium 7.5 mg/dl (8.5-10.1); Creatinine Clr Calc Pharmacy 170.7 ml/min; Est GFR (African American) 132.2; Est GFR (Non-African American) 114.1; Potassium 3.4 mmol/L (3.5-5.1)
--- NOTE | 2019-01-28 08:32 | Medical Student Progress Note ---
Date of Service January 28, 2019 Assessment & Plan (1) Hemochromatosis: 53 y/o male with a history of end stage liver disease secondary to hemochromatosis and alcohol abuse, hypertension, admitted for exacerbation of fluid retention Cirrhosis, End stage liver disease, Hyperbilirubinemia, Hyperammonemia, likely secondary to alcohol abuse, also hx of heterozygous hemochromatosis worsened LFTs on 01/28 compared to 01/[address] on admission 01/26 followed by [address]: No significant space- occupying lesion of the liver Hepatitis B and C neg, A pending Acetaminophen, AFP, CMV, EBV, HSV pending Urine culture and Blood culture pending to determine cause of decompensation associated with cirrhosis Xifaxan 550mg PO BID added this admission continue lactulose 20gm PO TID, titrated to 3-5 bowel movements daily strict alcohol avoidance Low sodium diet continue surveillance with ultrasonography every six months for hepatocellular carcinoma MELD score: 30, 52.6% estimated 3 mo mortality outpatient referral transplant list Worsening Edema of both lower extremities Likely from ? worsening liver function for alc use. no concern of noncompliance with medication. (01/27) BNP: 165 01/28: K 3.4 IV Lasix 20mg and 40mg given continue spironolactone 100mg PO DAILY Monitor I&O Low NA diet, less than 2G additional Lasix depending on Mg level Hypoalbuminemia albumin on 01/26: 1.9 received Albumin 25% IV Q1H 50mls/HR x 3 left leg pain ? pain from worsening leg edema. pain resolved Wide-complex tachycardia not symptomatic, detected on telemetry K level normal, check Mg level check 12-lead EKG Hypertension continue metoprolol 25mg PO DAILY Systolic heart murmur Echocardiogram: mild valvular aortic stenosis Anemia Hgb: 7.8, drop from 9.8 on 01/26, 16.0 in 04/2017: Hgb 8.8 normocytic outpatient EGD, colonoscopy Thrombocytopenia continue to monitor for signs and symptoms of bleeding Platelets currently 66 DVT ppx contraindicated because Platelet < 70 Headache continue topiramate 50mg PO BID GERD continue omeprazole 20mg PO DAILY Hypokalemia KCl 40meq PO 01/28: K 3.4 FEN/GI: Albumin 25% x 3, heart healthy diet with sodium and fluid restriction 1500 cc DVT prophylaxis: Contraindicated, encourage ambulation, will consider once platelets >70, consider SCD Code: Full Position: MedSurg with telemetry (2) Cirrhosis: (3) End-stage liver disease: (4) Hyperbilirubinemia: (5) Hypertension: (6) Anemia: (7) Thrombocytopenia: (8) Hypoalbuminemia: (9) Edema: (10) GERD (gastroesophageal reflux disease): (11) Headache: (12) Hypokalemia: (13) Left leg pain: (14) Hyperammonemia: Supervising Attestation Medical Student Supervision Note: I independently interviewed and examined the patient and verified the srinivasan history and physical, reviewed labs and image studies, discussed the case with Doroteo Prince and agree with the findings and care plan. leg swelling and pain improving LFT higher Per GI - started on NAC. Subjective CC: retaining fluid Mr. Lam Ashraf is a 53 y/o male with a history of hemochromatosis, cirrhosis, end stage liver disease, HTN who was admitted on 01/26 for worsening retention of fluid. Pt states he is feeling much better today, feels that his swelling has gone down. Pt states he is having less diarrhea. Pt states he does not feel as shaky as he did yesterday. Pt states his appetite has improved. Pt also states he feels that his balance has improved since yesterday and with swelling going down, he is able to walk around much better. Pt does not endorse any f/c, n/v, headache, dizziness. Review of Systems Cardiovascular: + edema; no chest pain, no dyspnea and no palpitations Gastrointestinal: + bloating Hematologic / Lymphatic: + easy bruising Physical Exam Constitutional: + ill appearing Eyes: sclerae not anicteric Respiratory: normal respiratory effort, lungs clear to auscultation Cardiovascular: Rate/Rhythm: regular rate and regular rhythm Heart Sounds: + murmur (systolic murmur) Vessels: dorsalis pedis pulses present, brachial pulses present and popliteal pulses present; no carotid bruit Extremities: + edema (pitting edema) Gastrointestinal (Abdomen): Inspection/Auscultation: + abdomen distended, normal bowel sounds and + caput medusae present Percussion/Palpation: + abdomen tender (RUQ), + abdomen rigid, + splenomegaly and + ascites (shifting dullness) Results & Data Vital Signs (Past 12 Hours) Vital Signs Temp Pulse Pulse Resp BP BP Pulse Ox 01/28/19 08:12 36.7 C 74 18 125/70 99 01/28/19 04:49 36.6 C 74 17 107/59 L 97 01/27/19 23:36 37.0 C 76 18 115/57 L 01/27/19 22:20 75
--- NOTE | 2019-01-28 08:51 | Gastroenterology Progress Note ---
Date of Service January 28, 2019 Assessment & Plan (1) Cirrhosis: 53 year old w/ history of hemochromatosis gene +, ETOH cirrhosis last ETOH in November admitted w/ fluid overload despite outpatient compliance with diuretics. He has not been following a low NA diet Fluid overload BNP, echo Consider IV lasix as an inpatient Can continue PO Aldactone 100 mg Monitor I&O Low NA diet, less than 2G daily Elevated LFTs History of cirrhosis MELD 30 Patent hepatic vasculature on CT Questionable hepatic lesion on CT Acute hep panel pending Tylenol level added CMV, EBV, HSV added Elevated Ammonia, history of HE Recommend Head CT, Urine culture, Blood culture, Chest XR Doubt enough fluid for diagnostic paracentesis Xifaxan 550 BID Lactulose titrated to 3-5 bowel movements daily Normocytic anemia Denies any black/bloody stools Will need OP EGD/Colon Liver lesion Check AFP Consider MRI abd Cirrhosis management Strict ETOH avoidance MELD labs and HCC screen every 6 months Low NA diet OP referral to transplant MELD labs tomorrow. Thank you for allowing us to participate in the care of this patient. Please call with any acute changes, questions or concerns. Please see addendum below with additional recommendation from my supervising physician. Supervising Physician Co-Signing Physician Notes I have seen and examined the patient with TIFFANIE Claudio whose note reflects our findings and plan. Subjective Pt was seen and evaluated, chart reviewed No acute events overnight Edema improving daily No abd pain tolerating diet no nausea, vomiting, black/bloody stools/emesis Review of Systems Constitutional: no fever, no chills and no fatigue Respiratory: no cough and no dyspnea Cardiovascular: + edema; no chest pain and no radiating jaw, neck or arm pain Gastrointestinal: no abdominal pain, no coffee ground emesis, no hematemesis, no blood in stools and no melena Physical Exam Constitutional: + obese; no acute distress Neck: trachea midline Respiratory: normal respiratory effort Cardiovascular: Rate/Rhythm: regular rate and regular rhythm Gastrointestinal (Abdomen): Inspection/Auscultation: normal bowel sounds Percussion/Palpation: abdomen soft; abdomen nontender, no guarding, abdomen not rigid and no abdominal mass Skin: + jaundice Results & Data Vital Signs (Past 12 Hours) Vital Signs Temp Pulse Pulse Resp BP BP Pulse Ox 01/28/19 08:12 36.7 C 74 18 125/70 99 01/28/19 04:49 36.6 C 74 17 107/59 L 97 01/27/19 23:36 37.0 C 76 18 115/57 L 01/27/19 22:20 75
[2019-01-28] MEDS ORDERED: POTASSIUM CHLORIDE 20 MEQ TABCR PO STA (09:21)
[2019-01-28] MEDS: SPIRONOLACTONE 100 MG TAB PO SCH (09:42)
[2019-01-28] MEDS: LACTULOSE SYRUP 20 GM/30 ML UDC PO SCH ×3 (09:43→21:47)
[2019-01-28] MEDS: MAGNESIUM OXIDE 400 MG TAB PO SCH ×2 (09:44→21:47)
[2019-01-28] MEDS: PANTOprazole 40 MG TAB PO SCH (09:44)
[2019-01-28] MEDS: RIFAXIMIN 550 MG TABLET PO SCH ×2 (09:45→21:48)
[2019-01-28] MEDS: METOPROLOL SUCC 25MG EXT REL TAB PO SCH (09:45)
[2019-01-28] MEDS: TOPIRAMATE 50 MG TAB PO SCH ×2 (09:45→21:47)
[2019-01-28] MEDS: ZINC SULFATE 220 MG CAPSULE PO SCH ×2 (09:46→21:47)
[2019-01-28 10:03] LABS: Albumin Level 1.8 gm/dl (3.4-5.0); Bilirubin,Total 14.1 mg/dl (0.2-1); Total Protein 5.4 gm/dl (6.4-8.2)
--- NOTE | 2019-01-28 11:27 | Hospitalist Progress Note ---
Date of Service January 28, 2019 Results & Data Vital Signs (Past 12 Hours) Vital Signs Temp Pulse Resp BP BP Pulse Ox 01/28/19 11:12 36.7 C 76 16 110/71 98 01/28/19 08:12 36.7 C 74 18 125/70 99 01/28/19 04:49 36.6 C 74 17 107/59 L 97 01/27/19 23:36 37.0 C 76 18 115/57 L
[2019-01-28] MEDS ORDERED: AcetylCYSTEINE IV 21 HR REGIMEN (>40KG) IV STA (11:44)
[2019-01-28] MEDS ORDERED: AcetylCYSTEINE 15,000 MG in DEXTROSE 5% 200 ML IV ONE (12:30)
[2019-01-28] MEDS ORDERED: AcetylCYSTEINE 5,000 MG in DEXTROSE 5% 500 ML IV ONE (13:53)
[2019-01-28 14:58] LABS: AFP Tumor Marker Serum 7.2 NG/ML (<6.1); Hepatitis A Antibody IgM NON-REACTIVE (NON-REACTIVE); Hepatitis B Core Antibody IgM NON-REACTIVE (NON-REACTIVE)
[2019-01-28] MEDS ORDERED: AcetylCYSTEINE 10,000 MG in DEXTROSE 5% 1,000 ML IV ONE (18:05)
[2019-01-29 07:24] LABS: Hemoglobin 8.2 g/dL (14.0-18.0); Mean Corpuscular Hemoglobin 32.3 pg (25-34); Mean Corpuscular Hgb Conc 34.2 g/dL (32-36); Mean Corpuscular Volume 94.5 fL (80-100); RDW Coefficient of Variation 18.1 % (11.5-14.5); RDW Standard Deviation 61.9 fL (36.4-46.3); Red Blood Count 2.54 M/uL (4.7-6.1); White Blood Count 4.01 K/uL (4.8-10.8)
[2019-01-29 07:31] LABS: Mean Platelet Volume 10.8 fL (7.4-10.4); Platelet Count 62 K/uL (130-400)
[2019-01-29 08:01] LABS: Albumin Level 1.6 gm/dl (3.4-5.0); BUN Creatinine Ratio 9.8 (10-20); Calcium 7.4 mg/dl (8.5-10.1); Est GFR (African American) 137.8; Est GFR (Non-African American) 118.9
[2019-01-29 08:08] LABS: Albumin Globulin Ratio 0.5 (0.9-2); Bilirubin,Total 11.6 mg/dl (0.2-1); Globulin 3.4 gm/dl (2.5-4.0)
[2019-01-29] MEDS ORDERED: POTASSIUM CHLORIDE 20 MEQ TABCR PO STA (08:10)
[2019-01-29] MEDS: MAGNESIUM OXIDE 400 MG TAB PO SCH ×2 (08:16→20:45)
[2019-01-29] MEDS: RIFAXIMIN 550 MG TABLET PO SCH ×2 (08:16→20:45)
[2019-01-29] MEDS: LACTULOSE SYRUP 20 GM/30 ML UDC PO SCH ×3 (08:16→20:44)
[2019-01-29] MEDS: METOPROLOL SUCC 25MG EXT REL TAB PO SCH (08:16)
[2019-01-29] MEDS: ZINC SULFATE 220 MG CAPSULE PO SCH ×2 (08:16→20:45)
[2019-01-29] MEDS: PANTOprazole 40 MG TAB PO SCH (08:16)
[2019-01-29] MEDS: SPIRONOLACTONE 100 MG TAB PO SCH (08:17)
[2019-01-29] MEDS: TOPIRAMATE 50 MG TAB PO SCH ×2 (08:17→20:45)
[2019-01-29 08:20] LABS: INR 2.8 (0.9-1.1); Prothrombin Time 26.6 Seconds (9.0-12.0)
--- NOTE | 2019-01-29 08:48 | Gastroenterology Progress Note ---
Date of Service January 29, 2019 Assessment & Plan (1) Cirrhosis: 53 year old w/ history of hemochromatosis gene +, ETOH cirrhosis last ETOH in November admitted w/ fluid overload despite outpatient compliance with diuretics. He has not been following a low NA diet Started on NAC, MELD 30, INR up this AM to 2.8. He is awake, alert and oriented x 4 answering all questions appropriately. Fluid overload Consider IV lasix as an inpatient Can continue PO Aldactone 100 mg Monitor I&O Low NA diet, less than 2G daily Elevated LFTs On NAC MELD 30 Patent hepatic vasculature on CT Acute hep panel negative Tylenol level added but cancelled twice CMV, EBV, HSV pending Elevated Ammonia, history of HE Recommend Head CT, Urine culture, Blood culture, Chest XR Doubt enough fluid for diagnostic paracentesis Xifaxan 550 BID Lactulose titrated to 3-5 bowel movements daily Normocytic anemia Denies any black/bloody stools Will need OP EGD/Colon Liver lesion Check AFP Consider MRI abd Cirrhosis management Strict ETOH avoidance MELD labs and HCC screen every 6 months Low NA diet OP referral to transplant Thank you for allowing us to participate in the care of this patient. Please call with any acute changes, questions or concerns. Please see addendum below with additional recommendation from my supervising physician. Subjective Pt was seen and evaluated, chart reviewed. No acute events noted overnight Started on NAC, TB improving this AM Awake, alert Answering questions appropriately Family at bedside No abd pain, nausea, vomiting, black/bloody stools No fever, chills, CP, SOB. MELD 30 INR up this AM to 2.8 Review of Systems Constitutional: no fever and no chills Respiratory: no cough and no dyspnea Cardiovascular: + edema; no chest pain and no dyspnea on exertion Gastrointestinal: no abdominal pain, no coffee ground emesis, no hematemesis, no blood in stools and no melena Integumentary: + yellowing of the skin Physical Exam Constitutional: + obese; no acute distress Neck: trachea midline Respiratory: normal respiratory effort Cardiovascular: Rate/Rhythm: regular rate and regular rhythm Extremities: + edema (pitting, bilateral) Gastrointestinal (Abdomen): normal bowel sounds, soft, nontender, no hepatosplenomegaly Inspection/Auscultation: normal bowel sounds Percussion/Palpation: abdomen soft; abdomen nontender, no guarding, abdomen not rigid and no abdominal mass Skin: + jaundice Results & Data Vital Signs (Past 12 Hours) Vital Signs Temp Pulse Pulse Resp BP BP Pulse Ox 01/29/19 07:38 79 01/29/19 07:00 36.9 C 77 20 102/66 99 01/29/19 03:00 36.9 C 82 20 99/59 L 100 01/29/19 01:19 96 H 01/28/19 22:53 36.9 C 84 18 105/67 100 Laboratory Results 01/29/19 01/29/19 01/29/19 Range/Units 07:00 06:57 06:57 WBC 4.01 L (4.8-10.8) K/uL RBC 2.54 L (4.7-6.1) M/uL Hgb 8.2 L (14.0-18.0) g/dL Hct 24.0 L (42-52) % MCV 94.5 (80-100) fL MCH 32.3 (25-34) pg MCHC 34.2 (32-36) g/dL RDW Std Deviation 61.9 H (36.4-46.3) fL RDW Coeff of Joey 18.1 H (11.5-14.5) % Plt Count 62 L (130-400) K/uL MPV 10.8 H (7.4-10.4) fL PT 26.6 H (9.0-12.0) Seconds INR 2.8 H (0.9-1.1) Sodium 130 L (136-145) mmol/L Potassium 3.0 L (3.5-5.1) mmol/L Chloride 100 (98-107) mmol/L Carbon Dioxide 19 L (21-32) mmol/L Anion Gap 10.0 (3-11) BUN 6 L (7-18) mg/dl Creatinine 0.56 L (0.6-1.4) mg/dl Est Cr Clr Drug Dosing 189.0 ml/min Est GFR ( Amer) 137.8 Est GFR (Non-Af Amer) 118.9 BUN/Creatinine Ratio 9.8 L (10-20) Glucose 111 H (70-99) mg/dl Calcium 7.4 L (8.5-10.1) mg/dl Magnesium (1.8-2.4) mg/dl Total Bilirubin 11.6 H (0.2-1) mg/dl Direct Bilirubin (0-0.2) mg/dl AST 38 H (15-37) U/L ALT 21 (12-78) U/L Alkaline Phosphatase 118 H (45-117) U/L Ammonia (11-32) umol/L Total Protein 5.0 L (6.4-8.2) gm/dl Albumin 1.6 L (3.4-5.0) gm/dl Globulin 3.4 (2.5-4.0) gm/dl Albumin/Globulin Ratio 0.5 L (0.9-2) Tumor Marker AFP (<6.1) NG/ML Hepatitis A IgM Ab (NON-REACTIVE) Hep B Core IgM Ab (NON-REACTIVE) Miscellaneous Test 01/28/19 01/28/19 01/28/19 Range/Units 09:14 09:14 09:14 WBC (4.8-10.8) K/uL RBC (4.7-6.1) M/uL Hgb (14.0-18.0) g/dL Hct (42-52) % MCV (80-100) fL MCH (25-34) pg MCHC (32-36) g/dL RDW Std Deviation (36.4-46.3) fL RDW Coeff of Joey (11.5-14.5) % Plt Count (130-400) K/uL MPV (7.4-10.4) fL PT (9.0-12.0) Seconds INR (0.9-1.1) Sodium (136-145) mmol/L Potassium (3.5-5.1) mmol/L Chloride (98-107) mmol/L Carbon Dioxide (21-32) mmol/L Anion Gap (3-11) BUN (7-18) mg/dl Creatinine (0.6-1.4) mg/dl Est Cr Clr Drug Dosing ml/min Est GFR ( Amer) Est GFR (Non-Af Amer) BUN/Creatinine Ratio (10-20) Glucose (70-99) mg/dl Calcium (8.5-10.1) mg/dl Magnesium 1.8 (1.8-2.4) mg/dl Total Bilirubin 14.1 H (0.2-1) mg/dl Direct Bilirubin 8.0 H (0-0.2) mg/dl AST 45 H (15-37) U/L ALT 27 (12-78) U/L Alkaline Phosphatase 127 H (45-117) U/L Ammonia 67.0 H (11-32) umol/L Total Protein 5.4 L (6.4-8.2) gm/dl Albumin 1.8 L (3.4-5.0) gm/dl Globulin (2.5-4.0) gm/dl Albumin/Globulin Ratio (0.9-2) Tumor Marker AFP (<6.1) NG/ML Hepatitis A IgM Ab (NON-REACTIVE) Hep B Core IgM Ab (NON-REACTIVE) Miscellaneous Test 01/27/19 01/27/19 01/26/19 Range/Units 10:40 00:28 15:55 WBC (4.8-10.8) K/uL RBC (4.7-6.1) M/uL Hgb (14.0-18.0) g/dL Hct (42-52) % MCV (80-100) fL MCH (25-34) pg MCHC (32-36) g/dL RDW Std Deviation (36.4-46.3) fL RDW Coeff of Joey (11.5-14.5) % Plt Count (130-400) K/uL MPV (7.4-10.4) fL PT (9.0-12.0) Seconds INR (0.9-1.1) Sodium (136-145) mmol/L Potassium (3.5-5.1) mmol/L Chloride (98-107) mmol/L Carbon Dioxide (21-32) mmol/L Anion Gap (3-11) BUN (7-18) mg/dl Creatinine (0.6-1.4) mg/dl Est Cr Clr Drug Dosing ml/min Est GFR ( Amer) Est GFR (Non-Af Amer) BUN/Creatinine Ratio (10-20) Glucose (70-99) mg/dl Calcium (8.5-10.1) mg/dl Magnesium (1.8-2.4) mg/dl Total Bilirubin (0.2-1) mg/dl Direct Bilirubin (0-0.2) mg/dl AST (15-37) U/L ALT (12-78) U/L Alkaline Phosphatase (45-117) U/L Ammonia (11-32) umol/L Total Protein (6.4-8.2) gm/dl Albumin (3.4-5.0) gm/dl Globulin (2.5-4.0) gm/dl Albumin/Globulin Ratio (0.9-2) Tumor Marker AFP 7.2 H (<6.1) NG/ML Hepatitis A IgM Ab NON-REACTIVE (NON-REACTIVE) Hep B Core IgM Ab NON-REACTIVE (NON-REACTIVE) Miscellaneous Test REPORT REPORT
--- NOTE | 2019-01-29 11:07 | Medical Student Progress Note ---
Date of Service January 29, 2019 Assessment & Plan (1) Hemochromatosis: 53 y/o male with a history of end stage liver disease secondary to hemochromatosis and alcohol abuse, hypertension, admitted for exacerbation of fluid retention Cirrhosis, End stage liver disease, Hyperbilirubinemia, Hyperammonemia, likely secondary to alcohol abuse, also hx of heterozygous hemochromatosis ruling out cause of decompensation - abdomen CT on admission 01/26 followed by [address]: No significant space- occupying lesion of the liver Hepatitis B and C neg, A neg Acetaminophen, AFP, CMV, EBV, HSV pending Urine culture and Blood culture pending to determine cause of decompensation associated with cirrhosis Xifaxan 550mg PO BID added this admission continue lactulose 20gm PO TID, titrated to 3-5 bowel movements daily Low sodium diet Received Acetylcysteine IV 5000mg and [id number] and [id number] on 01/28 INR worse 2.8 from 2.4 improved LFTs on 01/29 compared to 01/28 GI recommends transfer to [facility] due to worsening INR after having been treated with NAC- [facility] denied transfer for GI/hepatology recommends to give IV vitamin K 5mg for concern of malabsorption r/o causes of decompensation as already doing. outpatient referral transplant list continue surveillance with ultrasonography every six months for hepatocellular carcinoma strict alcohol avoidance MELD score: 30, 52.6% estimated 3 mo mortality Worsening Edema of both lower extremities Likely from ? worsening liver function from alc use. no concern of noncompliance with medication. Received albumin and lasix on admission. [facility] specialists recommends further diursesis with albumin and lasix. Will order continue spironolactone 100mg PO DAILY Monitor I&O Low NA diet, less than 2G Hypoalbuminemia albumin on 01/29: 1.6 received Albumin 25% IV Q1H 50mls/HR x 3 left leg pain ? pain from worsening leg edema. pain resolved Wide-complex tachycardia not symptomatic, detected on telemetry 12-lead EKbpm, normal sinus rhythm, prolonged QT: QT/QTc 436/483 replace electrolytes Hypokalemia KCl 40meq PO given KCl PO 60meq and 20meq given 01/29: K 3.0 Hypertension continue metoprolol 25mg PO DAILY Systolic heart murmur Echocardiogram: mild valvular aortic stenosis Anemia Hgb: 7.8, drop from 9.8 on 11/18, 16.0 in 04/2017: Hgb 8.2 normocytic outpatient EGD, colonoscopy Thrombocytopenia continue to monitor for signs and symptoms of bleeding Platelets currently 62 DVT ppx contraindicated because Platelet < 70 Headache continue topiramate 50mg PO BID GERD continue omeprazole 20mg PO DAILY FEN/GI: Albumin 25% x 3, heart healthy diet with sodium and fluid restriction 1500 cc DVT prophylaxis: Contraindicated, encourage ambulation, will consider once platelets >70, consider SCD Code: Full Position: MedSurg with telemetry (2) Cirrhosis: (3) End-stage liver disease: (4) Hyperbilirubinemia: (5) Hypertension: (6) Anemia: (7) Thrombocytopenia: (8) Hypoalbuminemia: (9) Edema: (10) GERD (gastroesophageal reflux disease): (11) Headache: (12) Hypokalemia: (13) Left leg pain: (14) Hyperammonemia: Supervising Attestation Medical student Supervision Note: I independently interviewed and examined the patient and verified the srinivasan history and physical, reviewed labs and image studies, discussed the case with the Doroteo Prince and agree with the findings and care plan. Discussed [facility] recommendation with local GI. recommending transfer to another facility. [facility] accepted transfer. Awaiting bed placement. continue care as above in the meantime. Subjective Mr. Lam Ashraf is a 53 y/o male with a history of end stage liver disease secondary to hemochromatosis and alcohol abuse, hypertension, admitted for exacerbation of fluid retention. Pt states he is feeling about the same as yesterday, feels like his swelling has gone down. Pt does not endorse f/c, no n/v, no chest pain, no dyspnea, no abdominal pain, no changes in bowel movement. Review of Systems Constitutional: + chills Cardiovascular: + edema; no chest pain, no dyspnea and no palpitations Gastrointestinal: + bloating Hematologic / Lymphatic: + easy bruising Physical Exam Constitutional: + ill appearing Eyes: sclerae not anicteric Respiratory: normal respiratory effort, lungs clear to auscultation Cardiovascular: Rate/Rhythm: regular rate and regular rhythm Heart Sounds: + murmur (systolic murmur) Vessels: dorsalis pedis pulses present, brachial pulses present and popliteal pulses present; no carotid bruit Extremities: + edema (pitting edema) Gastrointestinal (Abdomen): Inspection/Auscultation: + abdomen distended, normal bowel sounds and + caput medusae present Percussion/Palpation: + abdomen rigid, + splenomegaly and + ascites (shifting dullness) Results & Data Vital Signs (Past 12 Hours) Vital Signs Temp Pulse Pulse Resp BP BP Pulse Ox 01/29/19 07:38 79 01/29/19 07:00 36.9 C 77 20 102/66 99 01/29/19 03:00 36.9 C 82 20 99/59 L 100 01/29/19 01:19 96 H 01/28/19 22:53 36.9 C 84 18 105/67 100
[2019-01-29] MEDS ORDERED: POTASSIUM CHLORIDE 20 MEQ TABCR PO ONE (12:00)
[2019-01-29] MEDS ORDERED: ALBUMIN 25% 50 ML IV SCH (14:15)
[2019-01-29] MEDS ORDERED: PHYTONADIONE 5 MG in SODIUM CHLORIDE 0.9% 50 ML IV STA ×2 (14:18→16:49)
[2019-01-29] MEDS: ALBUMIN 25% 50 ML IV SCH ×3 (15:28→17:38)
--- NOTE | 2019-01-29 15:46 | Discharge Summary ---
Date of Service January 30, 2019 Admission HPI Per Admitting Provider 53-year-old male with history of hemochromatosis, cirrhosis with portal hypertension, varices ascites and splenomegaly, hypertension, GERD presents with concern of worsening edema x3 weeks. Associated with the muscle cramps. Reports he feels dehydrated and has muscle cramps but when drinks fluids he retains more. Reports previous episodes of lower extremity edema which never lasted this long and resolved. This episode has been progressively getting worse and not better. Now having edema all over including abdomen. Patient reports being diagnosed with hemochromatosis and cirrhosis at about age 46. He follows with Dr. Sally Porras, GI. He reports watching his salt intake and fluid intake as well. Takes lactulose and has about 4 loose bowel movements per day. Is also on diuretics Lasix and spironolactone at home. Urine is on and off very dark/orange in color depending on his bili levels. Denies any fever, chills, shortness of breath, chest pain, headache, lightheadedness, nausea, vomiting, abdominal pain, constipation, hematuria hematochezia, melena, hematuria and dysuria Admission Exam Per Admitting Provider General: In NAD Neuro: A&O x 4, mild asterixes Pulm: CTAB equal breath sounds bilaterally CV: RRR, 3/6 systolic murmur, no r/g, Abdomen:+BS, mild TTP in RUQ, distended with shifting dullness, hepatosplenome ashish LE: 2-3+ LE edema with tenderness to palpation Principal Diagnosis decompensated liver failure Discharge Exam General: In NAD Neuro: A&O x 4, mild asterixis Pulm: CTAB equal breath sounds bilaterally CV: RRR, 3/6 systolic murmur, bilateral 2+ pitting edema in LEs Abdomen:+BS, mild TTP in RUQ, distended with shifting dullness, hepatosplenomegaly, caput medusa appreciated on visual exam Skin: multiple large ecchymoses on bilateral arms at sites of blood draws Discharge Data Allergies Allergy/AdvReac Type Severity Reaction Status Date / Time No Known Allergies Allergy Unverified 01/26/19 21:39 Consultations 01/26/19 20:29 ED Decision to Admit Stat 01/26/19 23:44 Consult Gastroenterology Routine 01/29/19 15:21 Burn CD for patient Stat Ordered Studies 01/26/19 XR chest 1V portable CLINICAL HISTORY: concern for pulmonary edema dyspnea. Pain. COMPARISON STUDY: No previous studies for comparison. FINDINGS: The bones soft tissues and hemidiaphragms are normal. The cardiomediastinal silhouette is normal. The lungs are clear. The pulmonary vasculature is normal. IMPRESSION: Negative chest. 01/26/19 18:30 CT abd pelvis IV con only Stat CLINICAL HISTORY: 53 years-old Male presenting with painless jaundice. TECHNIQUE: Multidetector CT of the abdomen and pelvis was performed after the administration of intravenous contrast. IV contrast: 94 mL of Optiray 320. One or more dose lowering techniques were used consistent with the principles of ALARA (as low as reasonably achievable), including automatic exposure control, mA or kV adjustment to individual patient size, and/or use of iterative reconstruction. COMPARISON: None. CT DOSE (mGy.cm): The estimated cumulative dose is 1277.22 mGy.cm. FINDINGS: Soil Specialist topogram: Unremarkable. Lung bases: Mild multichamber enlargement of the heart. Coronary artery calcification. No pericardial or pleural effusion. No focal infiltrate or nodule at the lung bases. Liver: Cirrhotic morphology of the liver. Well-defined low-density 18 mm and 10 mm lesions in the right hepatic lobe, nonspecific on this single phase exam. Patent hepatic vasculature. Recanalization and extreme dilatation of the paraumbilical vein. Biliary: No intrahepatic or extrahepatic biliary ductal dilatation. Gallbladder decompressed. Pancreas: Normal. Spleen: Enlarged measuring 17.2 cm in maximal sagittal dimension. Pancreatic duct is nondilated. Adrenal glands: Normal. Kidneys and ureters: Normal. No hydronephrosis. Bladder: Incompletely evaluated secondary to underdistention. Pelvic organs: Prostate and seminal vesicles normal. Bowel: Normal. No bowel obstruction. The appendix is not visualized. Trace wall thickening of the cecum. Feces noted in the terminal ileum. No bowel obstruction. Mild wall thickening of proximal small bowel is suspected. Peritoneal cavity: Small volume of abdominal pelvic ascites, grossly simple appearing. No free intraperitoneal gas. Lymph nodes: No enlarged lymph nodes in the abdomen or pelvis. Vasculature: Aorta and IVC patent and normal in caliber. Prominent abdominal wall collateral vessels some of which represent caput medusae. Prominent retroperitoneal and perisplenic varices also evident. Limited perigastric varices. Mesenteric varices also noted. Abdominal wall: Moderate body wall edema. Musculoskeletal: Normal. IMPRESSION: 1. Cirrhosis with portal hypertension evidenced by varices, ascites, and moderate splenomegaly. This most likely accounts for the patient's hyperbilirubi nemia. 2. No evidence of a pancreatic mass allowing for this single phase examination. No pancreatic or biliary ductal dilatation. 3. Indeterminate hypodense lesions in the liver, possibly cysts. Evaluation is not tailored for detection of hepatocellular carcinoma on this single phase examination. 4. Volume overload with body wall edema. 5. Mild cardiomegaly. Hospital Course (1) Decompensated hepatic cirrhosis: 53 y/o male with a history of end stage liver disease secondary to hemochromatosis and alcohol abuse, hypertension, admitted for exacerbation of fluid retention, now with worsening of liver function and for transfer to [facility] today. Cirrhosis, End stage liver disease, Hyperbilirubinemia, Hyperammonemia, likely secondary to alcohol abuse, also hx of heterozygous hemochromatosis - Abdomen CT on admission 01/26 followed by [address]: No significant space- occupying lesions of the liver; AFP 7.2. - Hepatitis Panel negative. - Acetaminophen negative; AFP, CMV, EBV, HSV pending. - UCx and BCx x2 negative. - MELD score: 30, 52.6% estimated 3 mo mortality. - Xifaxan 550mg PO BID added this admission. - continue lactulose 20gm PO TID, titrated to 3-5 bowel movements daily. - Low sodium diet, fluid restriction 1500mL. - Has received Acetylcysteine IV starting 01/28. - INR 2.4 today. - Bili 11.6 yesterday. - Ammonia trending down from 104 to 67. - GI recommends transfer due to worsening liver function despite having been treated with NAC-. - [facility] denied transfer for GI/hepatology. - Gave IV vitamin K 5mg for concern of malabsorption, Lasix with albumin as per [facility] recommendation. - Transferred to [facility] Worsening Edema of both lower extremities - Likely from ? worsening liver function from alcohol use. Pt is complaint with home spirinolactone 100mg daily. - Received albumin and lasix during this admission. - [facility] specialist recommended further diursesis with albumin and lasix. - continue spironolactone 100mg PO DAILY. - Monitor I&O. - Low Na diet < 2G. Hypoalbuminemia - Albumin on 01/29: 1.6. - Received Albumin 25% IV Q1H 50mls/HR x 3 on admission and on 01/29. left leg pain - ? pain from worsening leg edema. - Pain resolved at this point. - No asymmetry of calves, no positive Enmanuel's sign. Wide-complex tachycardia - asymptomatic 15 beat run detected on telemetry. - Stat 12-lead EKbpm, normal sinus rhythm, prolonged QT: QT/QTc 436/483. - repleted K this admission. Hypokalemia - K today 3.5; KCl 80 meq PO given yesterday. Hypertension - continue metoprolol 25mg PO DAILY. Systolic heart murmur - Echocardiogram: mild valvular aortic stenosis. Anemia - Hgb 7.8 today, baseline on 05/02/18 of 16.0. - normocytic anemia MCV 94.5. - may need outpatient EGD, colonoscopy. Thrombocytopenia - continue to monitor for signs and symptoms of bleeding; pt without any Sx at this time. - Platelets currently 51; no DVT ppx at this time due to Plt < 70. Hx Headache - continue home topiramate 50mg PO BID. GERD - continue omeprazole 20mg PO DAILY. FEN/GI: Albumin 25% x 3 today, heart healthy diet with sodium and fluid restriction 1500 cc DVT prophylaxis: Contraindicated, encourage ambulation, will consider once platelets >70, SCDs PT IS FULL CODE Position: MedSurg with telemetry (2) Hyperammonemia: (3) Hypokalemia: (4) GERD (gastroesophageal reflux disease): (5) Edema: (6) Hypoalbuminemia: (7) Thrombocytopenia: (8) Anemia: (9) Cirrhosis: (10) Hyperbilirubinemia: (11) Headache: (12) Hemochromatosis: (13) Hypertension: Total Time Total Time Spent Total Time Spent (In Minutes): see attending attestation. Discharge Plan Discharge Items Patient Disposition: Transfer Acute Care Hospital Reason For Visit: EDEMA Discharge Diagnosis: decompensated liver failure Condition on Discharge: Serious Activity: Per Instructions section Weightbearing: Full weightbearing Non-emergency contact: Primary Care Provider and Hospitalist Call non-emergency contact if: your symptoms worsen Follow-up/Referrals: Dom Benton [Primary Care Provider] - Diet: Regular and Low Sodium (2gm) Fluids: 1500ml (6 cups) Addtl Attending Provider Instructions: 53 y/o male with a history of end stage liver disease secondary to hemochromatosis and alcohol abuse, hypertension, admitted for exacerbation of fluid retention, now with worsening of liver function and for transfer to [facility]. Cirrhosis, End stage liver disease, Hyperbilirubinemia, Hyperammonemia, likely secondary to alcohol abuse, also hx of heterozygous hemochromatosis - Abdomen CT on admission 01/26 followed by [address]: No significant space-occupying lesions of the liver; AFP 7.2. - Hepatitis Panel negative. - Acetaminophen negative; AFP, CMV, EBV, HSV pending. - UCx and BCx x2 negative. - Xifaxan 550mg PO BID added this admission. - continue lactulose 20gm PO TID, titrated to 3-5 bowel movements daily. - Low sodium diet, fluid restriction 1500mL. - Has received Acetylcysteine IV starting 01/28. - INR worsening today 2.8 from 2.4 - Bili 14.1 yesterday to 11.6 today. - Ammonia trending down from 104 to 67. - GI recommends transfer due to worsening INR after having been treated with NAC-. - [facility] denied transfer for GI/hepatology. - Gave IV vitamin K 5mg for concern of malabsorption, Lasix 40 IV for fluid overload. - Needs outpatient referral transplant list. - Continue surveillance with ultrasonography every six months for hepatocellular carcinoma. - Strict alcohol avoidance. - MELD score: 30, 52.6% estimated 3 mo mortality. Worsening Edema of both lower extremities - Likely from ? worsening liver function from alcohol use. Pt is complaint with home spirinolactone 100mg daily. - Received albumin and lasix during this admission. - [facility] specialist recommended further diursesis with albumin and lasix. - continue spironolactone 100mg PO DAILY. - Monitor I&O. - Low Na diet < 2G. Hypoalbuminemia - albumin on 01/29: 1.6. - received Albumin 25% IV Q1H 50mls/HR x 3 on admission and on 01/29. left leg pain - ? pain from worsening leg edema. - pain resolved at this point. - no asymmetry of calves, no positive Enmanuel's sign. Wide-complex tachycardia - asymptomatic 15 beat run detected on telemetry. - Stat 12-lead EKbpm, normal sinus rhythm, prolonged QT: QT/QTc 436/483. - repleted K today, Mg normal 1.8. Hypokalemia - K today 3.0; KCl 40meq PO given yesterday for K of 3.4, today given total of 80meq PO. Hypertension - continue metoprolol 25mg PO DAILY. Systolic heart murmur - Echocardiogram: mild valvular aortic stenosis. Anemia - Hgb 8.2 today, baseline on 05/02/18 of 16.0. - normocytic anemia MCV 94.5. - may need outpatient EGD, colonoscopy. Thrombocytopenia - continue to monitor for signs and symptoms of bleeding; pt without any Sx at this time. - Platelets currently 62; no DVT ppx at this time due to Plt < 70. Hx Headache - continue home topiramate 50mg PO BID. GERD - continue omeprazole 20mg PO DAILY. FEN/GI: Albumin 25% x 3 today, heart healthy diet with sodium and fluid restriction 1500 cc DVT prophylaxis: Contraindicated, encourage ambulation, will consider once platelets >70, SCDs PT IS FULL CODE Position: MedSurg with telemetry Pending Studies at Discharge: Yes Studies:: CMV, EBV, HSV Ag Ab testing Stand-Alone Forms: My [facility] Skilled Items Patient informed of condition?: Yes DNR: No Discharge Level of Care: Other Communicable Disease: No Discharge Prognosis: Deteriorating Lines: Peripheral IV Urinary Catheter: No Medications and DC Order Prescriptions: New Xifaxan 550 mg Tablet 550 mg PO BID Qty: 30 RF: 0 Continued ergocalciferol (vitamin D2) [Vitamin D2] 50,000 unit capsule 50,000 unit PO WK RF: 0 magnesium oxide 400 mg (241.3 mg magnesium) tablet 400 mg PO BID RF: 0 spironolactone 100 mg tablet 100 mg PO DAILY RF: 0 metoprolol succinate 25 mg tablet extended release 24 hr 25 mg PO DAILY RF: 0 lactulose 10 gram/15 mL solution 30 ml PO BID RF: 0 topiramate 50 mg tablet 50 mg PO BID RF: 0 omeprazole 20 mg Capsule,Delayed Release(Dr/Ec) 20 mg PO DAILY RF: 0 zinc 50 mg Tablet 50 mg PO BID RF: 0 furosemide 20 mg Tablet 20 mg PO BID RF: 0 Discharge Orders: Discharge Order (Routine); Ordered 01/29/19 Ordered By: Maria Del Carmen Hanna Admission Data Admit Date/Time: 01/26/19 22:50 Attending Provider: Opal Toro Admit Provider: Ivon Aaron Primary Care Provider: Dom Benton Other Providers: Ivon Aaron ; Thais Balderrama Other Interventions: Discharge Summary Assessment (RN) Last Done: 01/30/19 07:48 DC Date/Time DO NOT enter until pt leaves facility: 01/30/19 11:40 Supervising Physician Co-Signing Physician Notes Resident Physician Supervision Note: I independently interviewed and examined the patient and verified the srinivasan history and physical, reviewed labs and image studies, discussed the case with the resident Dr. Hanna and agree with the findings and care plan. Time spent in discharge 45 min Resident Activity Tracking Resident Involvement: Resident Care Provided Care Provided: Adult Hospital Medicine
[2019-01-30 07:18] LABS: Hematocrit (blood only) 23.6 % (42-52); Hemoglobin 7.8 g/dL (14.0-18.0); Mean Corpuscular Hemoglobin 31.5 pg (25-34); Mean Corpuscular Hgb Conc 33.1 g/dL (32-36); Mean Corpuscular Volume 95.2 fL (80-100); RDW Coefficient of Variation 18.1 % (11.5-14.5); RDW Standard Deviation 62.7 fL (36.4-46.3); Red Blood Count 2.48 M/uL (4.7-6.1); White Blood Count 2.85 K/uL (4.8-10.8)
[2019-01-30 07:24] VITALS: TEMP 97.9; O2SAT 100
[2019-01-30 07:29] LABS: Mean Platelet Volume 10.6 fL (7.4-10.4); Platelet Count 51 K/uL (130-400)
[2019-01-30] MEDS: LACTULOSE SYRUP 20 GM/30 ML UDC PO SCH (07:37)
[2019-01-30] MEDS: METOPROLOL SUCC 25MG EXT REL TAB PO SCH (07:37)
[2019-01-30] MEDS: SPIRONOLACTONE 100 MG TAB PO SCH (07:38)
[2019-01-30] MEDS: PANTOprazole 40 MG TAB PO SCH (07:38)
[2019-01-30] MEDS: RIFAXIMIN 550 MG TABLET PO SCH (07:38)
[2019-01-30] MEDS: TOPIRAMATE 50 MG TAB PO SCH (07:38)
[2019-01-30] MEDS: MAGNESIUM OXIDE 400 MG TAB PO SCH (07:38)
[2019-01-30 07:50] LABS: INR 2.4 (0.9-1.1); Prothrombin Time 23.4 Seconds (9.0-12.0)
[2019-01-30 07:52] VITALS: BP 112/67; PULSE 70
[2019-01-30] MEDS: ZINC SULFATE 220 MG CAPSULE PO SCH (07:54)
[2019-01-30 07:57] LABS: Albumin Globulin Ratio 0.6 (0.9-2); Bilirubin,Total 10.4 mg/dl (0.2-1); Calcium 7.7 mg/dl (8.5-10.1); Creatinine Clr Calc Pharmacy 177.5 ml/min; Est GFR (Non-African American) 115.6; Globulin 3.2 gm/dl (2.5-4.0); Potassium 3.5 mmol/L (3.5-5.1); Total Protein 5.2 gm/dl (6.4-8.2)
[2019-01-30 08:10] LABS: Partial Thromboplastin Time 55.3 Seconds (21.0-31.0)
--- NOTE | 2019-01-30 08:29 | Communication Note ---
Date of Service: January 30, 2019 Per pt, he was accepted for transfer and should be leaving the facility around 0830. Please recall if needed prior to transfer for any questions or concerns.
[2019-01-30 17:30] LABS: CMV IgG Antibody <0.60 U/ML; CMV IgM Antibody <30.00 Au/mL; Herpes Simplex Ab IgG-2 < 0.90 INDEX (< 0.90)
== END 2019-01-30 11:40 | disposition short-term general hospital (02) | DRG 442 ==
LOC: ED 15:22 → 2W 22:50 → SUATTDRO 22:50 → 2W 23:00

== ENCOUNTER 2019-02-14 12:40 | Inpatient (IN) ==
[2019-02-14 14:08] LABS: Hematocrit (blood only) 25.2 % (42-52); Hemoglobin 8.3 g/dL (14.0-18.0); Mean Corpuscular Hemoglobin 30.7 pg (25-34); Mean Corpuscular Hgb Conc 32.9 g/dL (32-36); Mean Corpuscular Volume 93.3 fL (80-100); RDW Coefficient of Variation 18.1 % (11.5-14.5); RDW Standard Deviation 61.3 fL (36.4-46.3)
[2019-02-14 14:22] LABS: Albumin Level 1.9 gm/dl (3.4-5.0); BUN Creatinine Ratio 8.6 (10-20); Bilirubin Direct 6.6 mg/dl (0-0.2); Calcium 7.9 mg/dl (8.5-10.1); Creatinine Clr Calc Pharmacy 151.7 ml/min; Est GFR (African American) 126.5; Est GFR (Non-African American) 109.1; Potassium 3.5 mmol/L (3.5-5.1)
[2019-02-14 14:24] LABS: INR 2.2 (0.9-1.1); Partial Thromboplastin Ratio 1.5; Partial Thromboplastin Time 41.9 Seconds (21.0-31.0)
[2019-02-14 14:30] LABS: Bilirubin,Total 10.1 mg/dl (0.2-1); Total Protein 6.1 gm/dl (6.4-8.2)
[2019-02-14 14:31] LABS: Basophils # (auto) 0.01 K/uL (0-0.2); Basophils % (auto) 0.2 %; Eosinophils # (auto) 0.19 K/uL (0-0.5); Eosinophils % (auto) 4.5 %; Immature Granulocytes # (auto) 0.01 K/uL (0.00-0.02); Immature Granulocytes % (auto) 0.2 %; Lymphocytes % (auto) 16.7 %; Mean Platelet Volume 10.7 fL (7.4-10.4); Monocytes % (auto) 14.3 %; Neutrophils # (auto) 2.69 K/uL (1.4-6.5); Neutrophils % (auto) 64.1 %; Platelet Count 88 K/uL (130-400)
--- NOTE | 2019-02-14 15:44 | XRay Report ---
XR abdomen 2V w PA chest HISTORY: 53 years-old Male cp sp egd acute left-sided abdominal pain COMPARISON: Chest radiograph 01/26/2019 TECHNIQUE: PA view of the chest with erect and supine views of the abdomen FINDINGS: Cardiac mediastinal and hilar silhouettes are within normal limits. No pneumothorax, pleural effusion , focal airspace consolidation or overt pulmonary edema. Minimal linear subsegmental atelectasis/scar ring. Mild degenerative changes of the spine. Bowel gas pattern is nonobstructive. No pneumatosis or pneumoperitoneum. Air-filled nondilated bowel noted within the right abdomen. No urolith or opaque foreign body identified. Mild degenerative velasco es of the spine. IMPRESSION: Unremarkable acute abdominal series radiographs. The above report was generated using voice recognition software. It may contain grammatical, syntax o r spelling errors. Electronically signed by: Ad Brooks M.D. 02/14/2019 3:42 PM
--- NOTE | 2019-02-14 16:45 | History & Physical Report ---
Date of Service February 14, 2019 Assessment & Plan (1) Hematochezia: source could be multiple ...hemorrhoids ...gastropathy from friable mucosa d/t portal htn ...ruled out for variceal bleeding since none were seen on EGD yesterday no significant acute blood loss anemia ...although his most recent hgb could have been higher since he was recently at [facility] ...our studies suggest baseline hgb=8 serial hgb ...transfuse as clinically indicated but would have high threshold given his transplant intentions GI consultation Present on Admission?: Yes (2) Left-sided chest wall pain: chest wall chest pain from shearing/jolting type of strain/injury ...no direct impact injury making rib fracture very unlikely ...treat symptomatically ...IS to help avoid pna Present on Admission?: Yes (3) Cirrhosis due to hemochromatosis: s/p recent acute decompensation in cirrhosis 01.28.2019 continue lactulose continue aldactone and furosemide GI consult Present on Admission?: Yes (4) Hyponatremia: likely related to diuretic and volume status and cirrhosis stable monitor closely cont diuretics. benefits outweigh the risk Present on Admission?: Yes (5) Portal hypertension: see problem above.... cirrhosis d/t hemachromatosis Present on Admission?: Yes (6) Anemia: see problem #1 hematochezia Present on Admission?: Yes (7) Thrombocytopenia: d/t cirrhosis baseline 40-70k stable monitor see problem above.... Cirrhosis d/t hemachromatosis Present on Admission?: Yes (8) Hypoalbuminemia: see problem above.... Cirrhosis d/t hemachromatosis Present on Admission?: Yes (9) Edema: see problem above.... Cirrhosis d/t hemachromatosis Present on Admission?: Yes History of Present Illness Primary Care Provider: Dom Benton pt seen in the ED w/ mother at his bedside This 53yo WM w/ cirrhosis (2/2 hemachromatosis) p/w 10d of hematochezia and acute 2d of L chest pain. L chest pain started yesterday when he was moving/being positioned for EGD. he felt immediate pain in his chest and it is extremely tender to palpation. no direct trauma, just a moving injury. + pleuritic. + increased pain with movement. exquisitely tender to palpation. it is constant. 10d hemotachezia. he is on lactulose and has about 3-5 BMs per day and there has been blood in the toilet bowl many of those times and too difficult to quantify. the stool has been black as well. he has had intermittent hematochezia in the past but usually short lived. EGD on 02.13.2019: mod-sev portal hypertensive gastropathy. contact friability with slight pressure of endoscope on gastric mucosa. no varices seen. No syncope, LH, dizziness, SOB, abd pain, N/V. pt was dx with hemachromatosis and cirrhosis 5 yrs ago. however, 6 wks ag he developed acute jaundiced and anasarca. he was hospitalized at [facility] in [place] and is being evaluated for liver transplant there. Allergies Allergy/AdvReac Type Severity Reaction Status Date / Time No Known Allergies Allergy Verified 02/14/19 14:01 Home Medications Home Medications Medication Instructions Recorded Confirmed Type ergocalciferol (vitamin D2) 50,000 unit PO SA 01/26/19 02/14/19 History [Vitamin D2] furosemide 20 mg PO QAM 01/26/19 02/14/19 History lactulose 30 ml PO BID 01/26/19 02/14/19 History magnesium oxide 400 mg PO BID 01/26/19 02/14/19 History omeprazole 20 mg PO QAM 01/26/19 02/14/19 History spironolactone 100 mg PO QAM 01/26/19 02/14/19 History zinc 50 mg PO BID 01/26/19 02/14/19 History Past Med/Surg History Medical History Cardiac murmur 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 TAN History of high cholesterol Hypertension (Chronic) Restless leg syndrome Surgical History History of appendectomy History of colonoscopy History of esophagogastroduodenoscopy (EGD) History of tonsillectomy Hx of LASIK Hx of vasectomy [place] teeth removed Family History (Updated 02/14/19 @ 17:40 by Venessa Brian MD) Other No pertinent family history in first degree relatives Social History (Updated 02/14/19 @ 17:46 by Venessa Brian MD) Preferred Language: [place] Communication Ability: Effective Bottom Cementer Required: No Beliefs That Will Affect Care: None marital status: marital status details: 3 sons Current Living Situation: Parent Current Living Situation Comment: mom current occupation: retired Other Information That Helps Us Care for You: No Feels Safe at Home: Yes Safety Concerns: Feels Safe At This Time Smoking Status: Never smoker Tobacco Type: smokeless tobacco ; Second Hand Exposure: No ; Hx Alcohol Use: No Hx Substance Use: No Review of Systems Review of Systems: Positive ROS: only as in Subjective yellow eyes x 6 wks chest pain hematochezia leg edema (much patrially improved) Constitutional: Negative. Negative for diaphoresis, fever and weight loss. HENT: Negative for congestion, sore throat and tinnitus. Eyes: Negative for blurred vision. Respiratory: Negative for cough, hemoptysis, sputum production, shortness of breath and wheezing. Cardiovascular: Negative for , palpitations and leg swelling. Gastrointestinal: Negative for abdominal pain, heartburn, melena, nausea and vomiting. Genitourinary: Negative for dysuria, frequency, hematuria and urgency. Musculoskeletal: Negative for joint pain. Skin: Negative for itching and rash. Neurological: Negative for dizziness, speech change, focal weakness, seizures, loss of consciousness and headaches. Psychiatric/Behavioral: Negative for depression, hallucinations and suicidal ideas. All other systems reviewed and are Physical Exam Physical Exam: Abnormal Exam: sclera very icteric OP with scattere punctate-2mm ulcerations c/w aphthous ulcers L chest near axilla is extremely tender and is > 10cm area ...no palpable abnormality gr 2 syst murmur abd w/ distention. no palpable abnl Constitutional: He is oriented to person, place, and time and well-developed, well-nourished, and in no distress. No distress. HENT: Mouth/Throat: mmm Eyes: Pupils are equal, round, and reactive to light. Conjunctivae and EOM are normal. Neck: Neck supple. Cardiovascular: rate, regular rhythm. no gallop and no friction rub. Pulmonary/Chest: Effort normal and breath sounds normal. No respiratory distress. He has no wheezes. He has no rales. He exhibits no tenderness. Abdominal: Soft. Bowel sounds are normal. There is no tenderness. Musculoskeletal: Normal range of motion. He exhibits no tenderness or deformity. Lymphadenopathy: no cervical adenopathy. Neurological: alert and oriented to person, place, and time. He has normal reflexes. No cranial nerve deficit. Gait normal. GCS score is 15. Skin: Skin is warm and dry. No rash noted. Psychiatric: Mood, memory, affect and judgment normal. very good sense of humor Results & Data Vital Signs (Past 12 Hours) Vital Signs Temp Pulse Pulse Resp BP BP Pulse Ox 02/14/19 15:10 66 20 122/64 100 02/14/19 12:43 36.9 C 67 20 120/66 100 Laboratory Results WBC=4.2 hgb=8.3 (MCV=93.3) plt=88 INR=2.2 PTT=41.9 Jq=608 K=3.5 BUN=6 creat=0.69 Tbili=10.1 LFTs:56-31-218 NH3=40 rtgoac=481 albumin=1.9 BASELINE: hgb=8 plt=40-70 [id number]=[id number] Diagnostic Findings obstrxn series: Unremarkable acute abdominal series radiographs. borderline cardiomegaly. clear lungs (images independently reviewed) Code Status & VTE Plan Code Status full VTE Prophylaxis Plan VTE Prophylaxis will be ordered: No Reason for no VTE drug order: Contraindicated
--- NOTE | 2019-02-14 17:21 | Emergency Department Note ---
Entered by Reena Hare acting as a scribe for History of Present Illness General Chief complaint: Rib Injury/Pain Stated complaint: RIB PAIN, BLOOD IN BM Time Seen by Provider: 02/14/19 13:23 Source: patient Limitations: no limitations History of Present Illness Provider complaint: Rib pain Onset (ago): day(s) 1 Location: hip and left Pain Consistency: + constant Maximum Pain Intensity: 8 Quality: + constant Associated symptoms: + other (Positive: left rib pain, blood in stool. Negative: chest pressure, blood in vomit ); no nausea/vomiting The patient is a 53 year old male with past medical history of aortic stenosis, cirrhosis, anemia, elevated pneumonia level, stomach problems hemochromatosis, hypertension, GERD, who presents to the ED with complaints of constant left rib pain that started yesterday. The patient reports that prior to having an endoscopy, 5 nurses were positioning him and thinks he tore something in his ribs. He notes that after the endoscopy he was unable to move and screamed in pain. The patient states he has blood in his stool that started yesterday. He denies blood in vomit, vomiting, or chest pressure. Home Medications Home Medications Medication Instructions Recorded Confirmed Type ergocalciferol (vitamin D2) 50,000 unit PO SA 01/26/19 02/14/19 History [Vitamin D2] furosemide 20 mg PO QAM 01/26/19 02/14/19 History lactulose 30 ml PO BID 01/26/19 02/14/19 History magnesium oxide 400 mg PO BID 01/26/19 02/14/19 History omeprazole 20 mg PO QAM 01/26/19 02/14/19 History spironolactone 100 mg PO QAM 01/26/19 02/14/19 History zinc 50 mg PO BID 01/26/19 02/14/19 History Allergies Allergy/AdvReac Type Severity Reaction Status Date / Time No Known Allergies Allergy Verified 02/14/19 14:01 Past Med/Surg History Medical History Cardiac murmur 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 TAN History of high cholesterol Hypertension (Chronic) Restless leg syndrome Surgical History History of appendectomy History of colonoscopy History of esophagogastroduodenoscopy (EGD) History of tonsillectomy Hx of LASIK Hx of vasectomy [place] teeth removed Family History Other No pertinent family history in first degree relatives Social History Preferred Language: Zambian Communication Ability: Effective Pickup Driver Required: No Beliefs That Will Affect Care: None Current Living Situation: Parent Current Living Situation Comment: mom Other Information That Helps Us Care for You: No Feels Safe at Home: Yes Safety Concerns: Feels Safe At This Time Smoking Status: Never smoker Tobacco Type: smokeless tobacco ; Second Hand Exposure: No ; Hx Alcohol Use: No Hx Substance Use: No Review of Systems See HPI for pertinent positives & negatives. and A total of 10 systems reviewed and were otherwise negative Physical Exam Vital Signs Vital Signs - 24 hr 02/14/19 12:43 02/14/19 15:10 Temperature 36.9 C Temperature Source Oral Pulse Rate 67 Pulse Rate [Right Finger] 66 Pulse Rhythm Regular Pulse Strength Normal Respiratory Rate 20 20 Respiratory Effort / Characteristics Non-Labored Respiratory Depth Normal Respiratory Pattern Regular Blood Pressure 120/66 Blood Pressure [Left Arm] 122/64 Blood Pressure Mean 84 Blood Pressure Mean [Left Arm] 83 Blood Pressure Position [Left Arm] Lying Pulse Oximetry 100 100 Oxygen Delivery Method Room Air Room Air Sepsis Recent Fever Within 48 Hours No Sepsis Action Taken by Nursing No Action Required GENERAL: He is oriented to person, place, and time. He appears well-developed and well-nourished. He does not appear distressed. HENT: Exam performed. - Head: Normocephalic and atraumatic. - Right Ear: External ear normal. No mastoid tenderness. - Left Ear: External ear normal. No mastoid tenderness. - Mouth/Throat: The oropharynx is clear and moist. No trismus in the jaw. No dental abscesses or uvula swelling. No oropharyngeal exudate or tonsillar abscesses. EYES: Conjunctivae and EOM are normal. Pupils are equal, round, and reactive to light. Right eye exhibits no discharge. Left eye exhibits no discharge. Scleral icterus present. NECK: Normal range of motion. Neck supple. No JVD present. No spinous process tenderness present. No carotid bruit present. No rigidity. No tracheal deviation and normal range of motion present. No Brudzinski's sign and no Kernig's sign noted. CV: Normal rate, regular rhythm, normal heart sounds and intact distal pulses. There is no peripheral edema. Palpable radial pulses bue. PULM/CHEST: Effort normal and breath sounds normal. No respiratory distress. No stridor. He has no wheezes. He has no rales. - Chest Wall: He exhibits no tenderness. Pain on palpation of left inferior lateral ribs reproducing chief complaint. No crepitus bilaterally. ABD: The abdomen is soft. Bowel sounds are normal. He has no distension. No mass is present. There is no tenderness. There is no rebound, no guarding, no Moreno's sign and no tenderness at McBurney's point. Rovsig negative. No fluid wave present. MUSC/SKEL: Normal range of motion. There is no peripheral edema, tenderness or deformity. RECTAL: There was bright red blood per rectum. LYMPH: No cervical adenopathy. NEURO: He is alert and oriented to person, place, and time. He has normal strength. No cranial nerve deficit or sensory deficit. Coordination and gait normal. GCS eye subscore is 4. GCS verbal subscore is 5. GCS motor subscore is 6. Cerebellar tests wnl. SKIN: Skin is warm and dry. He is not diaphoretic. Jaundice PSYCH: He has a normal mood and affect. Behavior is normal. Judgment and thought content normal. Course Course 1327: The patient was evaluated in room B7. A complete history and physical exam was performed. EMR Reviewed. The patient had an EGD by Dr. Porras, [facility], which was normal. The patient has a history of hemochromatosis, cirrhosis, hypertension, GERD, degenerative disc disease, ascites, and alcohol abuse. The patient is on lactulose and spironolactone. He was seen in the ER on January 26 and was admitted to the hospital. The patient was then transferred to [facility] for stenosis, end-stage liver disease, and elevated pneumonia level. He had 15 beat run of wide complex of tachycardia when he was seen in the hospital. He has history of aortic stenosis. 1615: Vital signs stable. Hemoglobin, bilirubin level, and liver function test at baseline including his coagulation studies. I discussed the patients case with Dr. Sterling, [facility]. He states from a GI standpoint, the patient is stable and can be admitted for observation for his GI bleed. I discussed with him that the patient was recently admitted and had to be transferred to [facility] for evaluation for possible liver transplant. Both him and I agree that the patient is stable and at this time does not need to be transferred. I talked to Wayne Guillen, [facility], and the patient will be admitted to Dr. Gregory. Medical Decision Making Medical Records Attestation: I reviewed the patient's medical records. Home Medications Current Medication List: was personally reviewed by me Laboratory Data Attestation: I reviewed the patient's lab results. Result diagrams: 02/14/19 13:47 02/14/19 13:47 Lab Results 02/14/19 02/14/19 02/14/19 Range/Units 13:45 13:47 13:47 WBC 4.20 L (4.8-10.8) K/uL RBC 2.70 L (4.7-6.1) M/uL Hgb 8.3 L (14.0-18.0) g/dL Hct 25.2 L (42-52) % MCV 93.3 (80-100) fL MCH 30.7 (25-34) pg MCHC 32.9 (32-36) g/dL RDW Std Deviation 61.3 H (36.4-46.3) fL RDW Coeff of Joey 18.1 H (11.5-14.5) % Plt Count 88 L (130-400) K/uL MPV 10.7 H (7.4-10.4) fL Immature Gran % (Auto) 0.2 % Neut % (Auto) 64.1 % Lymph % (Auto) 16.7 % [place] % (Auto) 14.3 % Eos % (Auto) 4.5 % Baso % (Auto) 0.2 % Immature Gran # (Auto) 0.01 (0.00-0.02) K/uL Neut # (Auto) 2.69 (1.4-6.5) K/uL Lymph # (Auto) 0.70 L (1.2-3.4) K/uL [place] # (Auto) 0.60 H (0.11-0.59) K/uL Eos # (Auto) 0.19 (0-0.5) K/uL Baso # (Auto) 0.01 (0-0.2) K/uL PT (9.0-12.0) Seconds INR (0.9-1.1) APTT (21.0-31.0) Seconds PTT Ratio Sodium 128 L (136-145) mmol/L Potassium 3.5 (3.5-5.1) mmol/L Chloride 99 (98-107) mmol/L Carbon Dioxide 22 (21-32) mmol/L Anion Gap 7.0 (3-11) BUN 6 L (7-18) mg/dl Creatinine 0.69 (0.6-1.4) mg/dl Est Cr Clr Drug Dosing 151.7 ml/min Est GFR ( Amer) 126.5 Est GFR (Non-Af Amer) 109.1 BUN/Creatinine Ratio 8.6 L (10-20) Glucose 103 H (70-99) mg/dl Calcium 7.9 L (8.5-10.1) mg/dl Total Bilirubin 10.1 H (0.2-1) mg/dl Direct Bilirubin 6.6 H (0-0.2) mg/dl AST 56 H (15-37) U/L ALT 31 (12-78) U/L Alkaline Phosphatase 218 H (45-117) U/L Ammonia (11-32) umol/L Total Protein 6.1 L (6.4-8.2) gm/dl Albumin 1.9 L (3.4-5.0) gm/dl Lipase 502 H (73-393) U/L Blood Type O Positive Antibody Screen NEGATIVE 02/14/19 02/14/19 Range/Units 13:47 13:47 WBC (4.8-10.8) K/uL RBC (4.7-6.1) M/uL Hgb (14.0-18.0) g/dL Hct (42-52) % MCV (80-100) fL MCH (25-34) pg MCHC (32-36) g/dL RDW Std Deviation (36.4-46.3) fL RDW Coeff of Joey (11.5-14.5) % Plt Count (130-400) K/uL MPV (7.4-10.4) fL Immature Gran % (Auto) % Neut % (Auto) % Lymph % (Auto) % [place] % (Auto) % Eos % (Auto) % Baso % (Auto) % Immature Gran # (Auto) (0.00-0.02) K/uL Neut # (Auto) (1.4-6.5) K/uL Lymph # (Auto) (1.2-3.4) K/uL [place] # (Auto) (0.11-0.59) K/uL Eos # (Auto) (0-0.5) K/uL Baso # (Auto) (0-0.2) K/uL PT 21.0 H (9.0-12.0) Seconds INR 2.2 H (0.9-1.1) APTT 41.9 H (21.0-31.0) Seconds PTT Ratio 1.5 Sodium (136-145) mmol/L Potassium (3.5-5.1) mmol/L Chloride (98-107) mmol/L Carbon Dioxide (21-32) mmol/L Anion Gap (3-11) BUN (7-18) mg/dl Creatinine (0.6-1.4) mg/dl Est Cr Clr Drug Dosing ml/min Est GFR ( Amer) Est GFR (Non-Af Amer) BUN/Creatinine Ratio (10-20) Glucose (70-99) mg/dl Calcium (8.5-10.1) mg/dl Total Bilirubin (0.2-1) mg/dl Direct Bilirubin (0-0.2) mg/dl AST (15-37) U/L ALT (12-78) U/L Alkaline Phosphatase (45-117) U/L Ammonia 40.0 H (11-32) umol/L Total Protein (6.4-8.2) gm/dl Albumin (3.4-5.0) gm/dl Lipase (73-393) U/L Blood Type Antibody Screen Imaging Data Radiologist's Impression: Radiology results as stated below per my review and the radiologist's interpretation: XR abdomen 2V w PA chest HISTORY: 53 years-old Male cp sp egd acute left-sided abdominal pain COMPARISON: Chest radiograph 01/26/2019 TECHNIQUE: PA view of the chest with erect and supine views of the abdomen FINDINGS: Cardiac mediastinal and hilar silhouettes are within normal limits. No pneumo thorax, pleural effusion, focal airspace consolidation or overt pulmonary edema. Minimal linear subsegmental atelectasis/scarring. Mild degenerative changes of the spine. Bowel gas pattern is nonobstructive. No pneumatosis or pneumoperitoneum. Air- filled nondilated bowel noted within the right abdomen. No urolith or opaque foreign body identified. Mild degenerative changes of the spine. IMPRESSION: Unremarkable acute abdominal series radiographs. The above report was generated using voice recognition software. It may contain grammatical, syntax or spelling errors. Electronically signed by: Ad Brooks M.D. 02/14/2019 3:42 PM ECG Data Attestation: I personally reviewed and interpreted this ECG as follows: Indication: + abdominal pain Rate (beats per minute): 65 Rhythm: + sinus rhythm ECG Intervals/blocks: + Normal QRS, + Normal QT and + Normal MD ECG ST segments: + T-wave inversions (in lead 3 only ); no ST depression and no ST elevation Blood Pressure Blood Pressure Findings: Normal blood pressure Blood Pressure Disposition: did not require urgent referral MDM Narrative 1327: The patient was evaluated in room B7. A complete history and physical exam was performed. EMR Reviewed. The patient had an EGD by Dr. Porras, [facility], which was normal. The patient has a history of hemochromatosis, cirrhosis, hypertension, GERD, degenerative disc disease, ascites, and alcohol abuse. The patient is on lactulose and spironolactone. He was seen in the ER on January 26 and was admitted to the hospital. The patient was then transferred to [facility] for stenosis, end-stage liver disease, and elevated pneumonia level. He had 15 beat run of wide complex of tachycardia when he was seen in the hospital. He has history of aortic stenosis. 1615: Vital signs stable. Hemoglobin, bilirubin level, and liver function test at baseline including his coagulation studies. I discussed the patients case with Dr. Sterling, [facility]. He states from a GI standpoint, the patient is stable and can be admitted for observation for his GI bleed. I discussed with him that the patient was recently admitted and had to be transferred to [facility] for evaluation for possible liver transplant. Both him and I agree that the patient is stable and at this time does not need to be transferred. I talked to Wayne Guillen, [facility], and the patient will be admitted to Dr. Gregory. Impression & Plan GI bleed Discharge Plan Visit Data Chief Complaint: Rib Injury/Pain Stated Complaint: RIB PAIN, BLOOD IN BM ED Provider: Satnam New Discharge Problem: GI bleed Patient Disposition: Being Evaluated by Hospitalist Forms Stand Alone Forms: My [facility] Prescriptions Prescriptions: No Action ergocalciferol (vitamin D2) [Vitamin D2] 50,000 unit capsule 50,000 unit PO SA RF: 0 magnesium oxide 400 mg (241.3 mg magnesium) tablet 400 mg PO BID RF: 0 spironolactone 100 mg tablet 100 mg PO QAM RF: 0 lactulose 10 gram/15 mL solution 30 ml PO BID RF: 0 omeprazole 20 mg Capsule,Delayed Release(Dr/Ec) 20 mg PO QAM RF: 0 zinc 50 mg Tablet 50 mg PO BID RF: 0 furosemide 20 mg Tablet 20 mg PO QAM RF: 0 Referrals Referrals: Dom Benton [Primary Care Provider] - Discharge Problem: GI bleed Qualifiers: GI bleed type/associated pathology: unspecified gastrointestinal hemorrhage type Qualified Code(s): K92.2 - Gastrointestinal hemorrhage, unspecified The scribe's documentation has been prepared under my direction and personally reviewed by me in its entirety. I confirm that the note above accurately reflects all work, treatment, procedures, and medical decision making performed by me.
[2019-02-14] MEDS ORDERED: ONDANSETRON INJ 2 MG/ML 2 ML VIAL IV PRN (20:18)
[2019-02-14] MEDS ORDERED: TRAMADOL HCL 50 MG TABLET PO PRN (20:18)
[2019-02-14] MEDS: MAGNESIUM OXIDE 400 MG TAB PO SCH (20:42)
[2019-02-14] MEDS: PANTOprazole 40 MG TAB PO SCH (20:42)
[2019-02-14] MEDS: LACTULOSE SYRUP 20 GM/30 ML UDC PO SCH (20:43)
[2019-02-14 23:22] LABS: Hematocrit (blood only) 25.8 % (42-52); Hemoglobin 8.6 g/dL (14.0-18.0); Mean Corpuscular Hemoglobin 30.9 pg (25-34); Mean Corpuscular Hgb Conc 33.3 g/dL (32-36); Mean Corpuscular Volume 92.8 fL (80-100); RDW Standard Deviation 61.1 fL (36.4-46.3); Red Blood Count 2.78 M/uL (4.7-6.1); White Blood Count 4.09 K/uL (4.8-10.8)
[2019-02-14 23:36] LABS: Mean Platelet Volume 9.8 fL (7.4-10.4); Platelet Count 76 K/uL (130-400)
[2019-02-15 07:17] LABS: Hematocrit (blood only) 22.3 % (42-52); Hemoglobin 7.5 g/dL (14.0-18.0); Mean Corpuscular Hemoglobin 31.4 pg (25-34); Mean Corpuscular Hgb Conc 33.6 g/dL (32-36); Mean Corpuscular Volume 93.3 fL (80-100); RDW Standard Deviation 61.6 fL (36.4-46.3); Red Blood Count 2.39 M/uL (4.7-6.1); White Blood Count 3.28 K/uL (4.8-10.8)
[2019-02-15 07:33] LABS: Mean Platelet Volume 11.2 fL (7.4-10.4); Platelet Count 69 K/uL (130-400)
[2019-02-15] MEDS: LACTULOSE SYRUP 20 GM/30 ML UDC PO SCH (08:06)
[2019-02-15] MEDS: MAGNESIUM OXIDE 400 MG TAB PO SCH (08:07)
[2019-02-15] MEDS: PANTOprazole 40 MG TAB PO SCH (08:07)
[2019-02-15] MEDS ORDERED: SPIRONOLACTONE 100 MG TAB PO SCH (09:00)
[2019-02-15] MEDS ORDERED: NON-FORMULARY MEDICATION (Omeprazole 20 MG) PO SCH (09:00)
[2019-02-15] MEDS ORDERED: FUROSEMIDE 20 MG TAB PO SCH (09:00)
--- NOTE | 2019-02-15 11:45 | Gastrointestinal Consultation ---
Date of Consultation February 15, 2019 History of Present Illness Attending Physician: Venessa Brian MD 53 yo M with h/o cirrhosis secondary to alcohol/iron overload s/p recent admission for volume overload; s/p recent EGD for variceal screening on 02.13 that was sig for portal gastropathy; now presents to ER complaining of left sided chest pain that is constant, positional, and worsened with palpation. He also reports multiple episodes of painless hematochezia with bowel movements over the past 4 days that seems to have decreased today. Of note, he takes lactulose, and has 4-5 BM's daily. He is otherwise without complaints. His Hgb is unchanged from baseline, and he is normotensive. No recent colonoscopy. PE: Comfortable, eating breakfast. HEENT: icteric, muddy sclera CV: RRR Chest: + caput, gnecomastia. He has marked focal tenderness over left chest Abd: non distended, non tender. + caput. Extrem: mild edema to knees Recta: + hemorrhoid that is not actively bleeding, brown stool. Labs reviewed A/P: Cirrhosis L chest pain, appears musculoskeletal by history Hematochezia, likely hemorrhoidal - Will arrange outpt cscopy. Cont outpt meds for HE and volume overload; please call as needed. Allergies Allergy/AdvReac Type Severity Reaction Status Date / Time No Known Allergies Allergy Verified 02/14/19 14:01 Home Medications Home Medications Medication Instructions Recorded Confirmed Type ergocalciferol (vitamin D2) 50,000 unit PO SA 01/26/19 02/14/19 History [Vitamin D2] furosemide 20 mg PO QAM 01/26/19 02/14/19 History lactulose 30 ml PO BID 01/26/19 02/14/19 History magnesium oxide 400 mg PO BID 01/26/19 02/14/19 History omeprazole 20 mg PO QAM 01/26/19 02/14/19 History spironolactone 100 mg PO QAM 01/26/19 02/14/19 History zinc 50 mg PO BID 01/26/19 02/14/19 History Patient History Medical History Cardiac murmur 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 TAN History of high cholesterol Hypertension (Chronic) Restless leg syndrome Surgical History History of appendectomy History of colonoscopy History of esophagogastroduodenoscopy (EGD) History of tonsillectomy Hx of LASIK Hx of vasectomy [place] teeth removed Family History (Updated 02/14/19 @ 17:40 by Venessa Brian MD) Other No pertinent family history in first degree relatives Social History (Updated 02/14/19 @ 17:46 by Venessa Brian MD) Preferred Language: Polish Communication Ability: Effective Examination Scorer Required: No Beliefs That Will Affect Care: None marital status: marital status details: 3 sons Current Living Situation: Parent Current Living Situation Comment: mom current occupation: retired Other Information That Helps Us Care for You: No Feels Safe at Home: Yes Safety Concerns: Feels Safe At This Time Smoking Status: Never smoker Tobacco Type: smokeless tobacco ; Second Hand Exposure: No ; Hx Alcohol Use: No Hx Substance Use: No Results & Data Vital Signs (Past 12 Hours) Vital Signs Temp Pulse Pulse Pulse Resp BP BP 02/15/19 11:29 36.8 C 75 18 120/74 02/15/19 08:00 80 02/15/19 07:24 36.7 C 74 16 118/66 02/15/19 04:57 36.7 C 88 16 122/74 02/15/19 00:50 36.9 C 71 20 112/59 L Pulse Ox 02/15/19 11:29 97 02/15/19 08:00 02/15/19 07:24 99 02/15/19 04:57 100 02/15/19 00:50 100
--- NOTE | 2019-02-15 14:24 | Discharge Summary ---
Date of Service February 15, 2019 Admission HPI Per Admitting Provider pt seen in the ED w/ mother at his bedside This 53yo WM w/ cirrhosis (2/2 hemachromatosis) p/w 10d of hematochezia and acute 2d of L chest pain. L chest pain started yesterday when he was moving/being positioned for EGD. he felt immediate pain in his chest and it is extremely tender to palpation. no direct trauma, just a moving injury. + pleuritic. + increased pain with movement. exquisitely tender to palpation. it is constant. 10d hemotachezia. he is on lactulose and has about 3-5 BMs per day and there has been blood in the toilet bowl many of those times and too difficult to quantify. the stool has been black as well. he has had intermittent hematochezia in the past but usually short lived. EGD on 02.13.2019: mod-sev portal hypertensive gastropathy. contact friability with slight pressure of endoscope on gastric mucosa. no varices seen. No syncope, LH, dizziness, SOB, abd pain, N/V. pt was dx with hemachromatosis and cirrhosis 5 yrs ago. however, 6 wks ag he developed acute jaundiced and anasarca. he was hospitalized at [facility] in [place] and is being evaluated for liver transplant there. Admission Exam Per Admitting Provider Abnormal Exam: sclera very icteric OP with scattere punctate-2mm ulcerations c/w aphthous ulcers L chest near axilla is extremely tender and is > 10cm area ...no palpable abnormality gr 2 syst murmur abd w/ distention. no palpable abnl Principal Diagnosis Discharge Exam Abnormal Exam: sclera very icteric OP with scattere punctate-2mm ulcerations c/w aphthous ulcers L chest near axilla is extremely tender and is > 10cm area ...no palpable abnormality gr 2 syst murmur abd w/ distention. no palpable abnl Constitutional: No distress. Eyes: Conjunctivae are normal. Cardiovascular: Normal RRR. no gallop and no friction rub. Pulmonary/Chest: Effort normal and breath sounds normal. No respiratory distress. no wheezing no rales. Abdominal: Soft. Bowel sounds are normal. Neurological: alert and oriented. no focal motor deficits Skin: Skin is warm and dry. No rash noted. Psychiatric: Mood, affect and judgment normal. Discharge Data Allergies Allergy/AdvReac Type Severity Reaction Status Date / Time No Known Allergies Allergy Verified 02/14/19 14:01 Consultations Consult Gastroenterology Routine: Christine Sterling Procedures Performed none Ordered Studies Obstrxn Series: Unremarkable acute abdominal series radiographs. Abd US: Small amount of ascites seen scattered throughout the abdomen. WBC=4.2 hgb=8.3 (MCV=93.3) ->7.7 plt=88 INR=2.2 PTT=41.9 Ix=672 K=3.5 BUN=6 creat=0.69 Tbili=10.1 LFTs:56-31-218 NH3=40 giqaee=511 albumin=1.9 BASELINE: hgb=8 plt=40-70 Hd=381-625 Hospital Course (1) Hematochezia: despite no significant intervention, the hematchezia was much improved at the time of DC. serial hgb was relatively stable no transfusion was indicated the source of the hematochezia was not definitively identified. it certainly could have been hemorrhoids which he did have. likely not gastric bleeding. he will be scheduled for an outpt colonoscopy. pt's chest pain was likely strain in the soft tissue over his L mid chest mostly along the axillary line related to his moving injury on .6 during EGD prep. he was advised to practice deep breathing to avoid pneumonia. he was advised that it would just need more time to heal prior to DC, he complained that his abd distention was recurring compared to his recent discharge from [facility] and he thought me might need a paracentesis. limited abdominal US was done and only showed a small amount of ascites. he is also scheduled for outpt cardiac stress test tomorrow in preparation for liver transplant evaluation. (2) Left-sided chest wall pain: chest wall chest pain from shearing/jolting type of strain/injury ...no direct impact injury making rib fracture very unlikely ...treat symptomatically ...IS to help avoid pna (3) Cirrhosis due to hemochromatosis: s/p recent acute decompensation in cirrhosis 01.28.2019 continue lactulose continue aldactone and furosemide (4) Hyponatremia: stable and did not require any acute intervention or change in treatment likely related to diuretic and volume status and cirrhosis stable monitor closely cont diuretics. benefits outweigh the risk (5) Portal hypertension: see problem above.... cirrhosis d/t hemachromatosis (6) Anemia: see problem #1 hematochezia (7) Thrombocytopenia: stable and did not require any acute intervention or change in treatment d/t cirrhosis baseline 40-70k stable monitor see problem above.... Cirrhosis d/t hemachromatosis (8) Hypoalbuminemia: see problem above.... Cirrhosis d/t hemachromatosis (9) Edema: see problem above.... Cirrhosis d/t hemachromatosis Total Time Total Time Spent Total Time Spent (In Minutes): <30min Discharge Plan Discharge Items Patient Disposition: Home - Self-Care Reason For Visit: HEMATOCHEZIA AND CHEST WALL CHEST PAIN Discharge Diagnosis: hematochezia chest wall chest pain Activity: Resume your previous activity Non-emergency contact: Primary Care Provider and Radiosonde Operator Call non-emergency contact if: your pain is not controlled and your temperature is above 101 Follow-up/Referrals: Dom Benton [Primary Care Provider] - Diet: Regular Diet Comment: Zero alcohol Addtl Attending Provider Instructions: If the abd US reveals significant ascites, you should have your steamfitter apprentice arrange for outpatient paracentesis (removal of fluid) Pending Studies at Discharge: Yes Studies:: ultrasound of abdomen to assess ascites Stand-Alone Forms: My [facility] Medications and DC Order Prescriptions: Continued ergocalciferol (vitamin D2) [Vitamin D2] 50,000 unit capsule 50,000 unit PO SA RF: 0 magnesium oxide 400 mg (241.3 mg magnesium) tablet 400 mg PO BID RF: 0 spironolactone 100 mg tablet 100 mg PO QAM RF: 0 lactulose 10 gram/15 mL solution 30 ml PO BID RF: 0 omeprazole 20 mg Capsule,Delayed Release(Dr/Ec) 20 mg PO QAM RF: 0 zinc 50 mg Tablet 50 mg PO BID RF: 0 furosemide 20 mg Tablet 20 mg PO QAM RF: 0 Discharge Orders: Discharge Order (Routine); Ordered 02/15/19 Ordered By: Venessa Luna/Other Patient Handouts: ED Hematochezia Stable Admission Data Admit Date/Time: 02/14/19 18:25 Attending Provider: Venessa Brian Admit Provider: Venessa Brian Primary Care Provider: Dom Benton Other Providers: Venessa Brian ; Christine Sterling Other Interventions: Discharge Summary Assessment (RN) Last Done: 02/15/19 14:53 DC Date/Time DO NOT enter until pt leaves facility: 02/15/19 16:48
--- NOTE | 2019-02-15 15:04 | Ultrasound Report ---
US abdomen ltd ascites CLINICAL HISTORY: ascites. determine if needs paracentesis COMPARISON STUDY: Abdomen CT 01/27/2019. FINDINGS: Small amount of ascites seen throughout the abdomen. This is most pronounced within the rig ht upper quadrant. However, this would not be amenable to paracentesis at this time. IMPRESSION: Small amount of ascites seen scattered throughout the abdomen. Electronically signed by: Jad Savage M.D. 02/15/2019 3:03 PM
== END 2019-02-15 16:48 | disposition home or self-care (01) | DRG 378 ==
LOC: ED 12:40 → 2S 18:25

== ENCOUNTER 2019-02-24 10:45 | Inpatient (IN) ==
[2019-02-24] MEDS ORDERED: LORazepam 0.5 MG/1 ML VIAL IV STA ×2 (12:10→14:24)
[2019-02-24 12:29] LABS: Appearance Urine Clear (Clear); Blood Urine Negative (Negative); Color Urine Dark Yellow; Glucose Urine UA Negative (Negative); Ketones Urine Negative (Negative); Leukocyte Esterase Urine Negative (Negative); Nitrite Urine Negative (Negative); Protein Urine Negative (Negative); Specific Gravity Urine 1.019 (1.000-1.030); Urobilinogen Urine Negative (Negative); pH Urine 8.5 (4.5-7.5)
--- NOTE | 2019-02-24 12:33 | Emergency Department Note ---
History of Present Illness General Chief complaint: Altered Mental Status Stated complaint: ams History of Present Illness Maximum Pain Intensity: 5 This patient is a 53-year-old male who presents to the emergency department via ALS for evaluation of altered mental status that reportedly started at 1130 last night. The history and physical is limited secondary to the patient's altered state. The patient's mother is at the bedside. Most of the history is taken from her. She reportedly saw the patient at his "baseline" last night around 1130. When she saw the patient this morning, he was agitated. He was not following commands. The patient's mother denies any recent illnesses or changes in medication. He did recently have significant testing including a colonoscopy and endoscopy. He was diagnosed with hemorrhoids. No other acute abnormalities were noted. Home Medications Home Medications Medication Instructions Recorded Confirmed Type ergocalciferol (vitamin D2) 50,000 unit PO SA 01/26/19 02/24/19 History [Vitamin D2] furosemide 20 mg PO QAM 01/26/19 02/24/19 History lactulose 30 ml PO BID 01/26/19 02/24/19 History magnesium oxide 400 mg PO BID 01/26/19 02/24/19 History omeprazole 20 mg PO QAM 01/26/19 02/24/19 History spironolactone 100 mg PO QAM 01/26/19 02/24/19 History zinc 50 mg PO BID 01/26/19 02/24/19 History Allergies Allergy/AdvReac Type Severity Reaction Status Date / Time No Known Allergies Allergy Verified 02/24/19 11:42 Past Med/Surg History Medical History Cardiac murmur 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 TAN History of high cholesterol Hypertension (Chronic) Restless leg syndrome Surgical History History of appendectomy History of colonoscopy History of esophagogastroduodenoscopy (EGD) History of tonsillectomy Hx of LASIK Hx of vasectomy [place] teeth removed Family History Other No pertinent family history in first degree relatives Social History Preferred Language: Vincentian Communication Ability: Effective Technical Asst Required: No Beliefs That Will Affect Care: None marital status: marital status details: 3 sons Current Living Situation: Parent Current Living Situation Comment: mom current occupation: retired Other Information That Helps Us Care for You: No Feels Safe at Home: Yes Safety Concerns: Feels Safe At This Time Smoking Status: Unknown if ever smoked Hx Alcohol Use: No (Denies alcoholism) Hx Substance Use: No Review of Systems A total of 10 systems reviewed and were otherwise negative This was done to the best of my ability given his altered state. Physical Exam Vital Signs Vital Signs - 24 hr 02/24/19 10:45 02/24/19 12:01 02/24/19 12:08 Temperature 36.4 C L Temperature Source Axillary Pulse Rate 78 70 Pulse Rate from SpO2 Sensor 69 Respiratory Rate 20 17 Respiratory Effort / Characteristics Non-Labored Respiratory Depth Normal Respiratory Pattern Regular Blood Pressure 119/51 L 101/51 L Blood Pressure Mean 73 75 Pulse Oximetry 100 100 100 Oxygen Delivery Method Room Air Room Air Sepsis Recent Fever Within 48 Hours No Sepsis New/Unexplained Change in Mental Status Yes Sepsis Action Taken by Nursing No Action Required 02/24/19 12:30 02/24/19 12:42 02/24/19 13:00 Temperature Temperature Source Pulse Rate 80 70 67 Pulse Rate from SpO2 Sensor 78 70 Respiratory Rate 18 15 17 Respiratory Effort / Characteristics Respiratory Depth Respiratory Pattern Blood Pressure 99/52 L 115/62 126/70 Blood Pressure Mean 62 80 82 Pulse Oximetry 100 100 Oxygen Delivery Method Sepsis Recent Fever Within 48 Hours Sepsis New/Unexplained Change in Mental Status Sepsis Action Taken by Nursing 02/24/19 13:30 02/24/19 14:20 02/24/19 14:30 Temperature Temperature Source Pulse Rate 73 71 71 Pulse Rate from SpO2 Sensor 72 73 70 Respiratory Rate 13 14 17 Respiratory Effort / Characteristics Respiratory Depth Respiratory Pattern Blood Pressure 129/69 116/67 100/56 L Blood Pressure Mean 101 82 63 Pulse Oximetry 99 100 99 Oxygen Delivery Method Sepsis Recent Fever Within 48 Hours Sepsis New/Unexplained Change in Mental Status Sepsis Action Taken by Nursing 02/24/19 15:00 02/24/19 15:30 02/24/19 16:00 Temperature Temperature Source Pulse Rate 68 84 71 Pulse Rate from SpO2 Sensor 71 84 69 Respiratory Rate 20 14 14 Respiratory Effort / Characteristics Respiratory Depth Respiratory Pattern Blood Pressure 94/54 L 110/63 91/50 L Blood Pressure Mean 63 70 57 Pulse Oximetry 100 100 100 Oxygen Delivery Method Sepsis Recent Fever Within 48 Hours Sepsis New/Unexplained Change in Mental Status Sepsis Action Taken by Nursing Constitutional WD/WN, vitals as above Eyes EOM intact bilaterally ENMT external ear and nose normal, oropharynx normal Neck trachea midline Respiratory normal respiratory effort, lungs clear to auscultation Cardiovascular RRR, no murmur, no edema Gastrointestinal (Abdomen) Distended. Bowel sounds hypoactive. Musculoskeletal no cyanosis or clubbing, extremities motor strength 5/5 Skin no rashes, warm and dry Jaundice Neurologic Response to verbal stimuli. Patient moaning. Not following commands. Moving all extremities without significant difficulty. Psychiatric Altered Course Course Patient was seen and examined Vital signs including blood pressure were reviewed medications list was verified with patient Labs were obtained, and a saline lock was established And EKG was performed and reviewed. Patient was put on a monitor. Imaging was performed and reviewed Upon reevaluation, the patient was resting comfortably. I discussed the work-up with the patient's mother. She voiced understanding. The case was discussed with my supervising physician who is in agreement with my plan. I then discussed the case with the inpatient service. They agreed to evaluate the patient for possible inpatient management. Consultations Consultation #1: [facility] hospitalist group Administered Medications Lactulose 200 gm/ Sterile Water 700 ml/ BARCODE IDENTIFIER 1 ea 0 gm MI Q8H ON LICENSE OF [facility] Stop: 03/26/19 19:59 Last Admin: 02/25/19 03:38 Dose: Not Given Documented by: [id number] Admin: 02/24/19 21:02 Dose: Not Given Documented by: [id number] Furosemide (Lasix) 20 mg PO QAM ON LICENSE OF [facility] Stop: 03/27/19 08:59 Last Admin: 02/25/19 09:19 Dose: 20 mg Documented by: [id number] Ioversol (Optiray 320 100ml) 89 ml IV ONCE PRN PRN Reason: Interaction Checking Stop: 02/28/19 16:16 Last Admin: 02/24/19 16:18 Dose: 89 ml Documented by: [id number] Lactulose (Chronulac) 20 gm PO TID ON LICENSE OF [facility] Stop: 03/27/19 08:59 Last Admin: 02/25/19 09:17 Dose: 20 gm Documented by: [id number] Magnesium Oxide (Mag-Ox) 400 mg PO BID KESHAV Stop: 03/26/19 20:59 Last Admin: 02/25/19 09:19 Dose: 400 mg Documented by: [id number] Admin: 02/24/19 21:02 Dose: Not Given Documented by: [id number] Pantoprazole Sodium (Protonix) 40 mg PO QAM KESHAV Stop: 03/27/19 08:59 Last Admin: 02/25/19 09:19 Dose: 40 mg Documented by: [id number] Spironolactone (Aldactone) 100 mg PO QAM KESHAV Stop: 03/27/19 08:59 Last Admin: 02/25/19 09:19 Dose: 100 mg Documented by: [id number] Discontinued Medications Lorazepam (Ativan) 0.5 mg in 1 mls @ 1 mls/min IV NOW STA Stop: 02/24/19 12:11 Last Admin: 02/24/19 12:32 Dose: 1 mls/min Documented by: [id number] Lorazepam (Ativan) 0.5 mg in 1 mls @ 1 mls/min IV NOW STA Stop: 02/24/19 14:25 Last Admin: 02/24/19 16:05 Dose: 1 mls/min Documented by: [id number] Medical Decision Making Medical Records Attestation: I reviewed the patient's medical records. Home Medications Current Medication List: was personally reviewed by me Laboratory Data Attestation: I reviewed the patient's lab results. Result diagrams: 02/24/19 12:40 02/24/19 12:40 Lab Results 02/24/19 02/24/19 02/24/19 Range/Units 11:19 12:05 12:40 WBC 3.59 L (4.8-10.8) K/uL RBC 2.65 L (4.7-6.1) M/uL Hgb 8.1 L (14.0-18.0) g/dL Hct 24.4 L (42-52) % MCV 92.1 (80-100) fL MCH 30.6 (25-34) pg MCHC 33.2 (32-36) g/dL RDW Std Deviation 62.9 H (36.4-46.3) fL RDW Coeff of Joey 18.6 H (11.5-14.5) % Plt Count 48 L (130-400) K/uL Immature Gran % (Auto) 0.3 % Neut % (Auto) 65.2 % Lymph % (Auto) 20.6 % Lee % (Auto) 10.0 % Eos % (Auto) 3.6 % Baso % (Auto) 0.3 % Immature Gran # (Auto) 0.01 (0.00-0.02) K/uL Neut # (Auto) 2.34 (1.4-6.5) K/uL Lymph # (Auto) 0.74 L (1.2-3.4) K/uL Lee # (Auto) 0.36 (0.11-0.59) K/uL Eos # (Auto) 0.13 (0-0.5) K/uL Baso # (Auto) 0.01 (0-0.2) K/uL Platelet Estimate Decreased L (Normal) Polychromasia 1+ Poikilocytosis Present Echinocytes 1+ PT (9.0-12.0) Seconds INR (0.9-1.1) Sodium (136-145) mmol/L Potassium (3.5-5.1) mmol/L Chloride (98-107) mmol/L Carbon Dioxide (21-32) mmol/L Anion Gap (3-11) BUN (7-18) mg/dl Creatinine (0.6-1.4) mg/dl Est Cr Clr Drug Dosing Est GFR ( Amer) Est GFR (Non-Af Amer) BUN/Creatinine Ratio (10-20) Glucose (70-99) mg/dl POC Glucose 105 H (70-99) Calcium (8.5-10.1) mg/dl Phosphorus (2.5-4.9) mg/dl Magnesium (1.8-2.4) mg/dl Total Bilirubin (0.2-1) mg/dl AST (15-37) U/L ALT (12-78) U/L Alkaline Phosphatase (45-117) U/L Ammonia (11-32) umol/L Troponin I (0-0.045) ng/ml Total Protein (6.4-8.2) gm/dl Albumin (3.4-5.0) gm/dl Globulin (2.5-4.0) gm/dl Albumin/Globulin Ratio (0.9-2) Lipase (73-393) U/L Urine Color Dark Yellow Urine Appearance Clear (Clear) Urine pH 8.5 H (4.5-7.5) Ur Specific [place] 1.019 (1.000-1.030) Urine Protein Negative (Negative) Urine Glucose (UA) Negative (Negative) Urine Ketones Negative (Negative) Urine Blood Negative (Negative) Urine Nitrite Negative (Negative) Urine Bilirubin 1+ H (Negative) Urine Urobilinogen Negative (Negative) Ur Leukocyte Esterase Negative (Negative) Urine Opiates Screen (Neg) Ur Methadone, Qual (Neg) Urine Barbiturates (Neg) Ur Phencyclidine (PCP) (Neg) U Amphetamin/Meth Scrn (Neg) MDMA (Ecstasy) Screen (Neg) U Benzodiazepines Scrn (Neg) Ur Cocaine Metabolite (Neg) U Marijuana (THC) Screen (Neg) 02/24/19 02/24/19 02/24/19 Range/Units 12:40 12:40 12:40 WBC (4.8-10.8) K/uL RBC (4.7-6.1) M/uL Hgb (14.0-18.0) g/dL Hct (42-52) % MCV (80-100) fL MCH (25-34) pg MCHC (32-36) g/dL RDW Std Deviation (36.4-46.3) fL RDW Coeff of Joey (11.5-14.5) % Plt Count (130-400) K/uL Immature Gran % (Auto) % Neut % (Auto) % Lymph % (Auto) % Lee % (Auto) % Eos % (Auto) % Baso % (Auto) % Immature Gran # (Auto) (0.00-0.02) K/uL Neut # (Auto) (1.4-6.5) K/uL Lymph # (Auto) (1.2-3.4) K/uL Lee # (Auto) (0.11-0.59) K/uL Eos # (Auto) (0-0.5) K/uL Baso # (Auto) (0-0.2) K/uL Platelet Estimate (Normal) Polychromasia Poikilocytosis Echinocytes PT 21.0 H (9.0-12.0) Seconds INR 2.2 H (0.9-1.1) Sodium 131 L (136-145) mmol/L Potassium 4.2 (3.5-5.1) mmol/L Chloride 107 (98-107) mmol/L Carbon Dioxide 20 L (21-32) mmol/L Anion Gap 4.0 (3-11) BUN 7 (7-18) mg/dl Creatinine 0.57 L (0.6-1.4) mg/dl Est Cr Clr Drug Dosing Not Reportable Est GFR ( Amer) 136.8 Est GFR (Non-Af Amer) 118.1 BUN/Creatinine Ratio 12.7 (10-20) Glucose 111 H (70-99) mg/dl POC Glucose (70-99) Calcium 7.6 L (8.5-10.1) mg/dl Phosphorus 2.6 (2.5-4.9) mg/dl Magnesium 1.7 L (1.8-2.4) mg/dl Total Bilirubin 9.1 H (0.2-1) mg/dl AST 53 H (15-37) U/L ALT 35 (12-78) U/L Alkaline Phosphatase 166 H (45-117) U/L Ammonia 63.0 H (11-32) umol/L Troponin I < 0.015 (0-0.045) ng/ml Total Protein 5.7 L (6.4-8.2) gm/dl Albumin 1.6 L (3.4-5.0) gm/dl Globulin 4.1 H (2.5-4.0) gm/dl Albumin/Globulin Ratio 0.4 L (0.9-2) Lipase 400 H (73-393) U/L Urine Color Urine Appearance (Clear) Urine pH (4.5-7.5) Ur Specific [place] (1.000-1.030) Urine Protein (Negative) Urine Glucose (UA) (Negative) Urine Ketones (Negative) Urine Blood (Negative) Urine Nitrite (Negative) Urine Bilirubin (Negative) Urine Urobilinogen (Negative) Ur Leukocyte Esterase (Negative) Urine Opiates Screen (Neg) Ur Methadone, Qual (Neg) Urine Barbiturates (Neg) Ur Phencyclidine (PCP) (Neg) U Amphetamin/Meth Scrn (Neg) MDMA (Ecstasy) Screen (Neg) U Benzodiazepines Scrn (Neg) Ur Cocaine Metabolite (Neg) U Marijuana (THC) Screen (Neg) 02/24/19 Range/Units 15:58 WBC (4.8-10.8) K/uL RBC (4.7-6.1) M/uL Hgb (14.0-18.0) g/dL Hct (42-52) % MCV (80-100) fL MCH (25-34) pg MCHC (32-36) g/dL RDW Std Deviation (36.4-46.3) fL RDW Coeff of Joey (11.5-14.5) % Plt Count (130-400) K/uL Immature Gran % (Auto) % Neut % (Auto) % Lymph % (Auto) % Lee % (Auto) % Eos % (Auto) % Baso % (Auto) % Immature Gran # (Auto) (0.00-0.02) K/uL Neut # (Auto) (1.4-6.5) K/uL Lymph # (Auto) (1.2-3.4) K/uL Lee # (Auto) (0.11-0.59) K/uL Eos # (Auto) (0-0.5) K/uL Baso # (Auto) (0-0.2) K/uL Platelet Estimate (Normal) Polychromasia Poikilocytosis Echinocytes PT (9.0-12.0) Seconds INR (0.9-1.1) Sodium (136-145) mmol/L Potassium (3.5-5.1) mmol/L Chloride (98-107) mmol/L Carbon Dioxide (21-32) mmol/L Anion Gap (3-11) BUN (7-18) mg/dl Creatinine (0.6-1.4) mg/dl Est Cr Clr Drug Dosing Est GFR ( Amer) Est GFR (Non-Af Amer) BUN/Creatinine Ratio (10-20) Glucose (70-99) mg/dl POC Glucose (70-99) Calcium (8.5-10.1) mg/dl Phosphorus (2.5-4.9) mg/dl Magnesium (1.8-2.4) mg/dl Total Bilirubin (0.2-1) mg/dl AST (15-37) U/L ALT (12-78) U/L Alkaline Phosphatase (45-117) U/L Ammonia (11-32) umol/L Troponin I (0-0.045) ng/ml Total Protein (6.4-8.2) gm/dl Albumin (3.4-5.0) gm/dl Globulin (2.5-4.0) gm/dl Albumin/Globulin Ratio (0.9-2) Lipase (73-393) U/L Urine Color Urine Appearance (Clear) Urine pH (4.5-7.5) Ur Specific [place] (1.000-1.030) Urine Protein (Negative) Urine Glucose (UA) (Negative) Urine Ketones (Negative) Urine Blood (Negative) Urine Nitrite (Negative) Urine Bilirubin (Negative) Urine Urobilinogen (Negative) Ur Leukocyte Esterase (Negative) Urine Opiates Screen Neg (Neg) Ur Methadone, Qual Neg (Neg) Urine Barbiturates Neg (Neg) Ur Phencyclidine (PCP) Neg (Neg) U Amphetamin/Meth Scrn Neg (Neg) MDMA (Ecstasy) Screen Neg (Neg) U Benzodiazepines Scrn Neg (Neg) Ur Cocaine Metabolite Neg (Neg) U Marijuana (THC) Screen Neg (Neg) Imaging Data Attestation: I personally reviewed and interpreted this imaging study as follows: Radiologist's Impression: Chest x-ray IMPRESSION: Stable cardiomegaly. Otherwise, no acute process within the chest. ACT 112: Negative or not required by law. Electronically signed by: Jad Savage M.D. 02/24/2019 1:10 PM Dictated: 02/24/19 1309 Transcribed: 02/24/[address] head without contrast There is no hemorrhage, mass effect, or evidence of acute territorial ischemia by CT criteria. Electronically signed by: Wayne Mason M.D. 02/24/2019 2:18 PM Dictated: 02/24/19 1415 Transcribed: 02/24/[address] abdomen and pelvis with IV contrast . Cirrhosis with manifestations of portal hypertension including large recannulized paraumbilical vein with abdominal collaterals, small amount of ascites and moderate splenomegaly. 2. No change in several hypodense right hepatic lobe lesions which are suboptimally assessed on this exam but are probably benign. 3. Mild gallbladder wall thickening with pericholecystic fluid/infiltration, nonspecific findings in the setting of cirrhosis. 4. No free air. Electronically signed by: Pancho Mckoy M.D. 02/24/2019 4:38 PM Dictated: 02/24/19 1628 Transcribed: 02/24/191627 ECG Data Attestation: I personally reviewed and interpreted this ECG as follows: Indication: + altered mental status Rate (beats per minute): 69 Rhythm: + normal sinus ECG Findings: + Q waves (Anterior) Change: no significant change (02/14/2019) Additional Comments: No acute ischemic changes noted. Prescription Drug Monitoring [place] Drug Monitoring Program reviewed and no issues identified Blood Pressure Blood Pressure Findings: Low blood pressure MDM Narrative Differential diagnosis: Metabolic encephalopathy, infectious etiology, intracranial abnormality, cardiogenic abnormality, electrolyte abnormality, dehydration, This patient is a 53-year-old male who presents to the emergency department for evaluation of altered mental status. On exam, he was not following commands. Vital signs were stable. Many labs are abnormal such as his ammonia level, however this does not appear to be worse than his prior levels. Liver function is also significantly impaired. Again, unchanged when compared to prior. Chest x-ray does not show any signs of pneumonia. No signs of UTI. CT the head did not show any acute abnormalities. The etiology of his altered mental state is unclear. I also ordered a CT of the abdomen and pelvis due to the fact that he had a recent procedure. No acute findings were noted. I do not feel comfortable sending the patient home due to his new/worsening altered state. The patient mother was in agreement. He will be evaluated by the hospitalist group for possible inpatient management. Impression & Plan Acute alteration in mental status Discharge Plan Visit Data *Final* Discharge Date/Time: 02/24/19 17:39 Chief Complaint: Altered Mental Status Stated Complaint: ams ED Provider: Aubrey Varner ED Midlevel Provider: Monika Panda Discharge Problem: Acute alteration in mental status Patient Disposition: Admitted As Inpatient Discharge Instructions Interventions: ED Discharge Assessment Last Done: 02/24/19 17:39
[2019-02-24 12:43] LABS: Bilirubin Urine 1+ (Negative)
[2019-02-24 12:44] LABS: Ictotest Urine Positive (Negative)
[2019-02-24 12:57] LABS: Mean Corpuscular Hgb Conc 33.2 g/dL (32-36)
[2019-02-24 13:03] LABS: Hematocrit (blood only) 24.4 % (42-52); Hemoglobin 8.1 g/dL (14.0-18.0); Mean Corpuscular Hemoglobin 30.6 pg (25-34); Mean Corpuscular Volume 92.1 fL (80-100); RDW Coefficient of Variation 18.6 % (11.5-14.5); RDW Standard Deviation 62.9 fL (36.4-46.3); Red Blood Count 2.65 M/uL (4.7-6.1); White Blood Count 3.59 K/uL (4.8-10.8)
[2019-02-24 13:11] LABS: INR 2.2 (0.9-1.1)
--- NOTE | 2019-02-24 13:11 | XRay Report ---
XR chest 1V portable HISTORY: Altered mental status. COMPARISON: Chest 02/14/2019. FINDINGS: There are low lung volumes. The heart remains mildly enlarged. No pleural effusions. No pne umothorax. No evidence for pulmonary edema. No new focal lung consolidations to suggest pneumonia. IMPRESSION: Stable cardiomegaly. Otherwise, no acute process within the chest. ACT 112: Negative or not required by law. Electronically signed by: Jad Savage M.D. 02/24/2019 1:10 PM
[2019-02-24 13:16] LABS: Basophils # (auto) 0.01 K/uL (0-0.2); Basophils % (auto) 0.3 %; Echinocytes 1+; Eosinophils # (auto) 0.13 K/uL (0-0.5); Eosinophils % (auto) 3.6 %; Immature Granulocytes # (auto) 0.01 K/uL (0.00-0.02); Immature Granulocytes % (auto) 0.3 %; Lymphocytes # (auto) 0.74 K/uL (1.2-3.4); Lymphocytes % (auto) 20.6 %; Monocytes # (auto) 0.36 K/uL (0.11-0.59); Neutrophils # (auto) 2.34 K/uL (1.4-6.5); Neutrophils % (auto) 65.2 %; Platelet Count 48 K/uL (130-400); Platelet Estimate Decreased (Normal); Poikilocytosis Present; Polychromasia 1+
[2019-02-24 13:24] LABS: Alanine Aminotransferase 35 U/L (12-78); Albumin Globulin Ratio 0.4 (0.9-2); Albumin Level 1.6 gm/dl (3.4-5.0); Alkaline Phosphatase 166 U/L (45-117); Aspartate Aminotransferase 53 U/L (15-37); BUN Creatinine Ratio 12.7 (10-20); Bilirubin,Total 9.1 mg/dl (0.2-1); Blood Urea Nitrogen 7 mg/dl (7-18); Calcium 7.6 mg/dl (8.5-10.1); Carbon Dioxide 20 mmol/L (21-32); Chloride 107 mmol/L (98-107); Est GFR (African American) 136.8; Est GFR (Non-African American) 118.1; Globulin 4.1 gm/dl (2.5-4.0); Glucose 111 mg/dl (70-99); Lipase 400 U/L (73-393); Magnesium 1.7 mg/dl (1.8-2.4); Phosphorus 2.6 mg/dl (2.5-4.9); Potassium 4.2 mmol/L (3.5-5.1); Sodium 131 mmol/L (136-145); Total Protein 5.7 gm/dl (6.4-8.2); Troponin I < 0.015 ng/ml (0-0.045)
--- NOTE | 2019-02-24 14:19 | CT Scan Report ---
CT SCAN OF THE BRAIN WITHOUT IV CONTRAST CLINICAL HISTORY: Change in mental status. COMPARISON STUDY: CT of the brain dated 05/02/2017. TECHNIQUE: Unenhanced axial CT scan of the brain is performed from the vertex to the skull base. A do se lowering technique was utilized adhering to the principles of ALARA. CT DOSE: 900.45 mGycm FINDINGS: Brain parenchyma: There is mild subcortical and periventricular microangiopathic change. There is no hemorrhage, mass effect, or evidence of acute territorial ischemia by CT criteria. Elkins-white matter differentiation is preserved. No extra-axial fluid collection is seen. Ventricles, sulci, cisterns: Normal in configuration. Intracranial vasculature: There is atherosclerotic calcification of the cavernous carotid arteries. Calvarium: Unremarkable. Sinuses and mastoids: There is moderate mucosal thickening with a small air-fluid level in the right maxillary antrum. Mild to moderate mucosal thickening is also seen in the left ethmoid sinuses. The m astoid air cells are well pneumatized. Orbits: The bony orbits are grossly intact. IMPRESSION: There is no hemorrhage, mass effect, or evidence of acute territorial ischemia by CT rene baugh. Electronically signed by: Wayne Mason M.D. 02/24/2019 2:18 PM
[2019-02-24] MEDS ORDERED: IOVERSOL 100ml IV PRN (16:17)
--- NOTE | 2019-02-24 16:20 | History & Physical Report ---
Date of Service February 24, 2019 Assessment & Plan (1) AMS (altered mental status): -Admit to med surg with tele -increased confusion possibly secondary to hepatic encephalopathy due to hyperammonia, patient has been unable to take any of his medications yet today, did not receive daily dose of lactulose, ammonia = 63 -Lactulose enemas as unable to tolerate p.o. currently -Consider GI consultation, patient was recently evaluated by team on 02/14/2019 for possible ascites, at that time there was limited ascites not worth paracentesis . I'm unable to determine if the patient has worsening ascites at this time as he cannot tell me any ROS due to altered mental status, also difficult to examine abdomen as he is rolled on his right side with arms crossed and will not let me truly assess fluid status. -Follows with Hepatology at [facility] and is being evaluated for liver transplant (2) End-stage liver disease: (3) Cirrhosis due to hemochromatosis: (4) Hyperammonemia: (5) Hyperbilirubinemia: - Ammonia level = 63, during last hospital visit it was in the 40s and there were no issues with acute confusion, patient did not take any of his morning medications today due to AMS. Will order lactulose enema for now. Once awake switch to PO and titrate lactulose for 3-4 BM daily. Mother notes BM have been about 2 per day recently. - Guiac all stools to r/o GI bleed with hx of hematochezia, renal function is ok with BUN of 7 and Cr. 0.57 - WBC of 3.59, does not appear to be infected, UA to r/o infectious source with UTI as pt mother notes he was incontinent this morning but UA appears clear. Incontinence likely result of confusion. - AST = 53, ALT = 35, alk phos equals 166, total bili = 9.1. - CT abdomen in process to r/o other acute causes of mental status changes. - INR = 2.2, follow am labs - MELD score = 27, 19.6% est 3 mo. mortality - Continue spironolactone 100 mg QAM, furosemide 20 mg QAM - missed doses today. - Would consider palliative consultation once mental status improves (6) Thrombocytopenia: - Plt = 48, follow with am CBC, no signs of hematochezia which was occurring during last visit here 10 days ago, monitor. (7) Hyponatremia: - Na= 131, likely hypotonic hypervolemia - Resume diuretics in morning (8) Anemia: -Stable with hemoglobin = 8.1, appears that he runs between 7-9 recently, no concerns for bleeding but will monitor hgb and inr as above with recent episodes of hematochezia. (9) Hypertension: - BP well controlled presently at 94/54 (10) DVT prophylaxis: teds, no chemical anticoagulation at this time CODE: FULL Dispo: From home, lives with mother and father, likely to remain in the hospital for at least 2 days. History of Present Illness Primary Care Provider: Dom Benton This is a 53 yo M who has been hospitalized 3 times in the past month for reasons surrounding his end-stage liver disease secondary to hemochromatosis. These included admits on 01/28 was seen here in our ER for decompensated hepatic cirrhosis where he was transferred to [facility] for worsening liver function. Was then seen on 02/14 for chest pain and hematochezia which resolved without significant intervention and was evaluated by GI. The patient now represents to our ER with worsening altered mental status which began this morning per his mother who is at bedside and supplies the history. Of note pt has been preparing for liver transplant evaluation. Other past medical history of cirrhosis, hyperbilirubinemia, hyperammonia, likely secondary to alcohol abus e history, and heterozygous hemochromatosis. She notes that he was in his normal state of health yesterday, talking, walking, eating and drinking as he typically would. This morning he was very sleepy and unable to be gotten up out of bed, eventually did get up and walked to the kitchen and then back to the living room chair however remained significantly confused and was not answering to her questions appropriately. She then brought him to the ER today. Patient received dose of IV Ativan 1 mg as he became combative. Patient is resting comfortably during my exam, but does not participate in conversation. Ammonia level = 63, during last hospital visit it was in the 40s and there were no issues with acute confusion, patient did not take any of his morning medications today due to AMS. AST = 53, ALT = 35, alk phos equals 166, total bili = 9.1. INR = 2.2 CT of head is negative for any acute findings, CXR negative CT of abdomen is in process. Allergies Allergy/AdvReac Type Severity Reaction Status Date / Time No Known Allergies Allergy Verified 02/24/19 11:42 Home Medications Home Medications Medication Instructions Recorded Confirmed Type ergocalciferol (vitamin D2) 50,000 unit PO SA 01/26/19 02/24/19 History [Vitamin D2] furosemide 20 mg PO QAM 01/26/19 02/24/19 History lactulose 30 ml PO BID 01/26/19 02/24/19 History magnesium oxide 400 mg PO BID 01/26/19 02/24/19 History omeprazole 20 mg PO QAM 01/26/19 02/24/19 History spironolactone 100 mg PO QAM 01/26/19 02/24/19 History zinc 50 mg PO BID 01/26/19 02/24/19 History Past Med/Surg History Medical History Cardiac murmur 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 TAN History of high cholesterol Hypertension (Chronic) Restless leg syndrome Surgical History History of appendectomy History of colonoscopy History of esophagogastroduodenoscopy (EGD) History of tonsillectomy Hx of LASIK Hx of vasectomy [place] teeth removed Family History Other No pertinent family history in first degree relatives Social History Preferred Language: Welsh Communication Ability: Effective Dealer Support Technician Required: No Beliefs That Will Affect Care: None marital status: marital status details: 3 sons Current Living Situation: Parent Current Living Situation Comment: mom current occupation: retired Other Information That Helps Us Care for You: No Feels Safe at Home: Yes Safety Concerns: Feels Safe At This Time Smoking Status: Unknown if ever smoked Hx Alcohol Use: No (Denies alcoholism) Hx Substance Use: No Review of Systems Review of Systems: Unobtainable due to cognitive status Physical Exam Physical Exam: General: no apparent distress, does not verbally respond to my questions, moves slightly with auscultation Head: Normocephalic, atraumatic ENT: PERRL, EOMI, no pharyngeal exudate, mucous membranes moist Chest: Clear to auscultation, on room air, no adventitious breath sounds Cardiac: Regular rate and rhythm, no murmur, no JVD, normal peripheral pulses, good capillary refill Abdominal: NABS x 4 quadrants, soft, nondistended, nontender to palpation, no rebound, guarding or tenderness Extremities: Normal inspection, no peripheral edema or erythema, calfs nontender to palpation Psych: Normal mood and affect Neuro: Asleep, no gross motor deficits Results & Data Vital Signs (Past 12 Hours) Vital Signs Temp Pulse Resp BP Pulse Ox 02/24/19 15:00 68 20 94/54 L 100 02/24/19 14:30 71 17 100/56 L 99 02/24/19 14:20 71 14 116/67 100 02/24/19 13:30 73 13 129/69 99 02/24/19 13:00 67 17 126/70 02/24/19 12:42 70 15 115/62 100 02/24/19 12:30 80 18 99/52 L 100 02/24/19 12:08 100 02/24/19 12:01 70 17 101/51 L 100 02/24/19 10:45 36.4 C L 78 20 119/51 L 100 Diagnostic Findings XR chest 1V portable HISTORY: Altered mental status. COMPARISON: Chest 02/14/2019. FINDINGS: There are low lung volumes. The heart remains mildly enlarged. No pleural effusions. No pneumothorax. No evidence for pulmonary edema. No new focal lung consolidations to suggest pneumonia. IMPRESSION: Stable cardiomegaly. Otherwise, no acute process within the chest. CT SCAN OF THE BRAIN WITHOUT IV CONTRAST CLINICAL HISTORY: Change in mental status. COMPARISON STUDY: CT of the brain dated 05/02/2017. TECHNIQUE: Unenhanced axial CT scan of the brain is performed from the vertex to the skull base. A dose lowering technique was utilized adhering to the principles of ALARA. CT DOSE: 900.45 mGycm FINDINGS: Brain parenchyma: There is mild subcortical and periventricular microangiopathic change. There is no hemorrhage, mass effect, or evidence of acute territorial ischemia by CT criteria. Elkins-white matter differentiation is preserved. No extra-axial fluid collection is seen. Ventricles, sulci, cisterns: Normal in configuration. Intracranial vasculature: There is atherosclerotic calcification of the cavernous carotid arteries. Calvarium: Unremarkable. Sinuses and mastoids: There is moderate mucosal thickening with a small air- fluid level in the right maxillary antrum. Mild to moderate mucosal thickening is also seen in the left ethmoid sinuses. The mastoid air cells are well pneumatized. Orbits: The bony orbits are grossly intact. IMPRESSION: There is no hemorrhage, mass effect, or evidence of acute territorial ischemia by CT criteria. ECG Additional Comments: 24-FEB-2019 12:50:20 [facility]-EDSTAT ROUTINE RETRIEVAL Normal sinus rhythm Normal ECG When compared with ECG of 14-FEB-2019 13:57, T wave inversion no longer evident in Inferior leads Nonspecific T wave abnormality no longer evident in Anterior leads 25mm/s 10mm/mV 150Hz 9.0.9 12SL 241 JESSE: 10 Referred by: REFERRED SELF Unconfirmed Vent. rate 69 BPM MO interval 172 ms QRS duration 96 ms QT/QTc 426/456 ms P-R-T axes 52 43 67 Code Status & VTE Plan Code Status Full code-discussed with mother and sister at bedside, patient not awake for discussion. VTE Prophylaxis Plan VTE Prophylaxis will be ordered: No PG Care Time/CCT Total # of Minutes Spent Total Time Spent with Patient: Total time spent is greater than 50% in coordination of care (as documented) at patient's floor/unit and/or counseling patient:
[2019-02-24 16:34] LABS: Amphetamines+Metham, Urine Neg (Neg); Barbiturates, Urine Neg (Neg); Benzodiazepine, Urine Neg (Neg); Cocaine, Urine Neg (Neg); MDMA (Ecstacy), Urine Neg (Neg); Methadone, Urine Neg (Neg); Opiate, Urine Neg (Neg); Phencyclidine, Urine Neg (Neg)
--- NOTE | 2019-02-24 16:39 | CT Scan Report ---
CT OF THE ABDOMEN AND PELVIS WITH CONTRAST CLINICAL HISTORY: Mental status. Recent scope. COMPARISON STUDY: CT of the abdomen January 27, 2019. Abdominal series February 14, 2019. TECHNIQUE: Following IV administration of 89 mL of Optiray-320, axial images of the abdomen and pelvi s were obtained from the lung bases to the proximal femurs. Images were reviewed in the axial, sagitt al, and coronal planes. IV contrast was administered without complication. Automated exposure contro l was utilized for the study. A dose lowering technique was utilized adhering to the principles of A ARCADIO. CT DOSE: 1425.56 mGy.cm FINDINGS: Several healing right-sided rib fractures are noted. There is bilateral gynecomastia. Moder ate cardiomegaly is noted. The liver is cirrhotic. A few hypodense right hepatic lobe lesions measure up to 1.9 cm. These are suboptimally assessed on this single phase exam but are unchanged from initi al CT of January 26, 2019. No biliary or pancreatic ductal dilatation is noted. A large recanalized paraumbilical vein is noted with numerous abdominal wall collaterals and a small amount of ascites wi thin the abdomen and pelvis is noted. There is moderate splenomegaly. The adrenal glands, kidneys and pancreas are unremarkable. There is no evidence for a bowel obstruction. No pneumatosis, free air or portal venous gas is present. The appendix is not visualized. Major vasculature is patent. There is anasarca. Mild gallbladder wall thickening with pericholecystic infiltration and fluid is a nonspecif ic finding the setting of cirrhosis. A moderate amount stool within the rectum is noted. Vasquez balloo n and gas are present within the bladder. There are no suspicious osseous lesions. There is no hydron ephrosis. IMPRESSION: 1. Cirrhosis with manifestations of portal hypertension including large recannulized paraumbilical ve in with abdominal collaterals, small amount of ascites and moderate splenomegaly. 2. No change in several hypodense right hepatic lobe lesions which are suboptimally assessed on this exam but are probably benign. 3. Mild gallbladder wall thickening with pericholecystic fluid/infiltration, nonspecific findings in the setting of cirrhosis. 4. No free air. Electronically signed by: Pancho Mckoy M.D. 02/24/2019 4:38 PM
[2019-02-24] MEDS ORDERED: ACETAMINOPHEN 325 MG TAB PO PRN (18:07)
[2019-02-24] MEDS ORDERED: ONDANSETRON INJ 2 MG/ML 2 ML VIAL IV PRN (18:07)
[2019-02-24] MEDS ORDERED: NON-FORMULARY MEDICATION (Zinc 50 MG) PO SCH (21:00)
[2019-02-24] MEDS: LACTULOSE 200 GM, WATER, STERILE IRRIG 700 ML, BARCODE IDENTIFIER 1 EA PR SCH (21:02)
[2019-02-24] MEDS: MAGNESIUM OXIDE 400 MG TAB PO SCH (21:02)
[2019-02-25] MEDS: LACTULOSE 200 GM, WATER, STERILE IRRIG 700 ML, BARCODE IDENTIFIER 1 EA PR SCH ×2 (03:38→12:27)
[2019-02-25] MEDS ORDERED: FUROSEMIDE 20 MG TAB PO SCH (09:00)
[2019-02-25] MEDS: LACTULOSE SYRUP 20 GM/30 ML UDC PO SCH ×3 (09:17→20:07)
[2019-02-25 09:18] LABS: Mean Corpuscular Hgb Conc 32.8 g/dL (32-36)
[2019-02-25] MEDS: SPIRONOLACTONE 100 MG TAB PO SCH (09:19)
[2019-02-25] MEDS: MAGNESIUM OXIDE 400 MG TAB PO SCH ×2 (09:19→20:07)
[2019-02-25] MEDS: PANTOprazole 40 MG TAB PO SCH (09:19)
[2019-02-25 09:33] LABS: Prothrombin Time 19.4 Seconds (9.0-12.0)
[2019-02-25 09:36] LABS: Albumin Level 1.5 gm/dl (3.4-5.0); BUN Creatinine Ratio 12.5 (10-20); Bilirubin Direct 6.4 mg/dl (0-0.2); Calcium 7.6 mg/dl (8.5-10.1); Creatinine Clr Calc Pharmacy 159.1 ml/min; Est GFR (African American) 132.2; Est GFR (Non-African American) 114.1; Potassium 4.3 mmol/L (3.5-5.1)
[2019-02-25 09:40] LABS: Albumin Globulin Ratio 0.4 (0.9-2); Bilirubin,Total 11.6 mg/dl (0.2-1); Globulin 4.1 gm/dl (2.5-4.0); Total Protein 5.6 gm/dl (6.4-8.2)
--- NOTE | 2019-02-25 09:45 | Gastrointestinal Consultation ---
Date of Consultation February 25, 2019 Assessment & Plan (1) Alcoholic cirrhosis: 1. Hold diuretics . 2. Gentle IV hydration. 3. VDUS to r/o PVT. 4. Daily LFTs, ammonia, renal function. 5. Rifaximin 550mg BID. 6. Blood and urine cultures. 7. No significant ascites so will hold on diagnostic tap. 8. GI will continue to follow. Present on Admission?: Yes (2) Decompensated hepatic cirrhosis: Present on Admission?: Yes (3) Hepatic encephalopathy: 1. Agree with lactulose enemas. 2. Unsure of baseline mental status. OP records mention dx of dementia with use of aricept. 3. Blood and urine cultures. 4. Unlikely to have adequate ascites for diagnostic tap, but also unlikely to have SBP with only small amt of ascites. 5. Would hold diuretics until hepatic encepalopathy is resolved then restart on DC. 6. When able to take po would add rifaximin 550mg BID. Present on Admission?: Yes Supervising Physician Co-Signing Physician Notes I have personally seen and examined the patient with TIFFANIE Enriquez on 02/25/2019. Her note reflects my exam and findings. I agree with her impression and plan. Improving encephalopathy. Cont current treatment. Nirmal Senior M.D. History of Present Illness Reason for Consultation: Decompensated liver disease Requesting Physician: Dr. Weiss Attending Physician: Diann Weiss MD History of Present Illness Ms. Lam Garza is a 53-year-old male patient of [facility] who is followed in GI clinic by Dr. Porras for ETOH cirrhosis complicated by ascites, portal hypertensive gastropathy, hepatic encephalopathy. He is also heterozygous for hemochromatosis. He was most recently seen in the GI clinic in 2018 but is up-to-date with most recent EGD February 13, 2019 with severe portal hypertensive gastropathy but no varices and colonoscopy in 02/19/19February [address] Bone for hematochezia showing excoriated internal hemorrhoids. HCC screening (-) as CT on arrival chronic cystic lesions but no suspicious masses. For ascites he is maintained on furosemide 20 every morning, Spironolactone 100 every morning. For prevention of recurrence of hepatic encephalopathy he is prescribed lactulose 30 mg p.o. twice daily. OP records show that he was prescribed rifaximin in January though I see this is not on his outpatient medication list. His mother tells us that he has not been able to afford this medication, that his co-pay is $1000 per month. He was brought to the ED yesterday for altered mental status. His mother, who was with him at the bedside tells us that he was very confused and lethargic and that he is improved but not back to his baseline today. On arrival, ammonia was found to be elevated at 63. T bili is elevated at 9.1, though kidney function remains normal with creatinine at 0.57. CT is without gallstones or biliary or pancreatic bile duct dilation. UA is without white blood cells or nitrates. CXR is without acute abnormalities. Allergies Allergy/AdvReac Type Severity Reaction Status Date / Time No Known Allergies Allergy Verified 02/24/19 11:42 Home Medications Home Medications Medication Instructions Recorded Confirmed Type ergocalciferol (vitamin D2) 50,000 unit PO SA 01/26/19 02/24/19 History [Vitamin D2] furosemide 20 mg PO QAM 01/26/19 02/24/19 History lactulose 30 ml PO BID 01/26/19 02/24/19 History magnesium oxide 400 mg PO BID 01/26/19 02/24/19 History omeprazole 20 mg PO QAM 01/26/19 02/24/19 History spironolactone 100 mg PO QAM 01/26/19 02/24/19 History zinc 50 mg PO BID 01/26/19 02/24/19 History Patient History Medical History Cardiac murmur 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 TAN History of high cholesterol Hypertension (Chronic) Restless leg syndrome Surgical History History of appendectomy History of colonoscopy History of esophagogastroduodenoscopy (EGD) History of tonsillectomy Hx of LASIK Hx of vasectomy [place] teeth removed Family History Other No pertinent family history in first degree relatives Social History Preferred Language: Japanese Communication Ability: Impaired Plant Protection Guard Required: No Beliefs That Will Affect Care: None marital status: marital status details: 3 sons Current Living Situation: Parent Current Living Situation Comment: mom current occupation: retired Other Information That Helps Us Care for You: No Feels Safe at Home: Yes Safety Concerns: Feels Safe At This Time Smoking Status: Unknown if ever smoked Hx Alcohol Use: No (Denies alcoholism) Hx Substance Use: No Review of Systems Review of Systems: ROS: Gen: + confusion, lethargy, weakness Eyes: No eye redness, or pain, no recent vision changes Resp: No SOB, no cough Cardio: No palpitations/irregular beats, no chest pain GI: No abdominal pain, no nausea/vomiting : Denies pain on urination Skin: No jaundice, itching or new rashes Physical Exam Constitutional: WD/WN, vitals as above + ill appearing Eyes: PERRL, conjunctivae normal, anicteric sclerae ENMT: external ear and nose normal, oropharynx normal Neck: trachea midline, no thyromegaly Respiratory: normal respiratory effort, lungs clear to auscultation Cardiovascular: RRR, no murmur, no edema Gastrointestinal (Abdomen): normal bowel sounds, soft, nontender, no hepatosplenomegaly Skin: no rashes, warm and dry Neurologic: Lethargic, but wakes with verbal stimulation and is able to tell us his name, his mother's name. Not able to tell us where he is or what month this is. + one beat asterix Psychiatric: See neuro Results & Data Vital Signs (Past 12 Hours) Vital Signs Temp Pulse Pulse Resp BP Pulse Ox 02/25/19 09:12 36.6 C 70 18 134/84 100 02/25/19 07:25 36.6 C 76 18 119/72 100 02/25/19 03:21 36.3 C L 78 20 117/75 100 02/25/19 00:38 81 02/24/19 21:53 36.8 C 72 18 129/70 100 Laboratory Results T Bili 9.1, AST 53, ALT 35, Alk Phos 155. Hb 8.1, hct 24, Platets 48, INR 2.0. Diagnostic Findings CT 12/17/19 (non contrast): 1. Cirrhosis with manifestations of portal hypertension including large recannulized paraumbilical vein with abdominal collaterals, small amount of ascites and moderate splenomegaly. 2. No change in several hypodense right hepatic lobe lesions which are suboptimally assessed on this exam but are probably benign. 3. Mild gallbladder wall thickening with pericholecystic fluid/infiltration, nonspecific findings in the setting of cirrhosis. 4. No free air. Medications Administered Lactulose enemas.
[2019-02-25 09:49] LABS: Hemoglobin 8.2 g/dL (14.0-18.0); Mean Corpuscular Hemoglobin 30.4 pg (25-34); Mean Corpuscular Volume 92.6 fL (80-100); RDW Coefficient of Variation 18.2 % (11.5-14.5); RDW Standard Deviation 60.9 fL (36.4-46.3); White Blood Count 3.35 K/uL (4.8-10.8)
[2019-02-25 09:50] LABS: Platelet Count 45 K/uL (130-400)
[2019-02-25 09:53] LABS: Platelet Estimate Decreased (Normal)
--- NOTE | 2019-02-25 12:25 | Hospitalist Progress Note ---
Date of Service February 25, 2019 Assessment & Plan (1) Hepatic encephalopathy: Presented with increased confusion secondary to hepatic encephalopathy. Patient has been unable to take any of his medications on the day of admission, including his lactulose, ammonia = 63 on admission and now improved to 54, mental status somewhat improved -received one lactulose enema No BM yet today -continue lactulose tid for goal BM 2-3 times daily -add on Rifaximin and will have Project Development Engineer look into cost as was cost prohibitive as outpt when recently prescribed -Appreciate GI consultation, patient was recently evaluated by team on 02/14/2019 for possible ascites, at that time there was limited ascites not worth paracentesis . CT abd/pel here with minimal ascites, he has no abdominal pain, no fevers, do not suspect SBD No evidence of portal vein thrombosis on CT--> will discuss with GI if utility of Portal vein US? -Follows with Hepatology at [facility] and is being evaluated for liver transplant-plan is to get on the list in Apr 2019 -follow NH3, LFTs, INR, CBC -can remove Vasquez as is causing discomfort and now more awake -can advance diet as tolerated to clears (2) End-stage liver disease: as above TBili more elevated today at 11.4 (3) Cirrhosis due to hemochromatosis: as above MELD score today 25 Follow labs UTD on HCC screening (4) Hyperammonemia: as above, improving with lactulose enema (5) Hyperbilirubinemia: secondary to cirrhosis as above (6) Thrombocytopenia: - Plt = 48 and stable Secondary to cirrhosis (7) Hyponatremia: - Na= 131, on admission Now improved to 133 Likely secondary to cirrhosis -continue lasix, aldactone -follow BMP (8) Anemia: -Stable with hemoglobin = 8.2 today, appears that he runs between 7-9 recently, no concerns for bleeding Had EGD and Colonoscopy in the last 2 weeks with no active bleeding (9) Portal hypertension: Continue diuretics is not on beta yung, will find out why (10) DVT prophylaxis: teds, no chemical anticoagulation at this time CODE: FULL Dispo: From home, lives with mother and father Subjective Much more awake and alert, not combative anymore but was apparently overnight, but remains confused. Mom at bedside very pleased with the improvement. He is mostly yelling out with pain fro the Vasquez catheter and wants it removed. No abd pain, no chest pain or SOB. Also wants to eat. Tele with NSR Review of Systems Review of Systems: All systems reviewed & are unremarkable except as noted in HPI & below Physical Exam Constitutional: WD/WN, vitals as above (confused, lying in bed, moaning at times) no acute distress Eyes: + scleral abnormality (icterus) and PERRL ENMT: external ear and nose normal, oropharynx normal Neck: trachea midline, no thyromegaly Respiratory: normal respiratory effort, lungs clear to auscultation Cardiovascular: RRR, no murmur, no edema Chest (Breasts): Chest: normal inspection of chest Gastrointestinal (Abdomen): normal bowel sounds, soft, nontender, no hepatosplenomegaly Musculoskeletal: Extremities: extremities normal to inspection; no cyanosis and no clubbing Skin: + jaundice Neurologic: moves all extremities, awake and + confused (mild); no focal motor deficits Psychiatric: Orientation: alert, oriented to person, oriented to place and cooperative; + not oriented to time (knows the year but not the month or date, then laughs about it) Eye Contact: + fair eye contact Speech: normal rate/rhythm/volume of speech Genitourinary: no testicular masses, no penis abnormality (Vasquez in place, no drainage or blood at meatus, urine dark brown) Lymphatic: no lymphedema Results & Data Vital Signs (Past 12 Hours) Vital Signs Temp Pulse Pulse Resp BP Pulse Ox 02/25/19 11:31 36.7 C 67 16 131/84 100 02/25/19 09:12 36.6 C 70 18 134/84 100 02/25/19 08:00 68 02/25/19 07:25 36.6 C 76 18 119/72 100 02/25/19 03:21 36.3 C L 78 20 117/75 100 02/25/19 00:38 81 Laboratory Results 02/25/19 02/25/19 02/25/19 Range/Units 09:10 09:00 09:00 WBC (4.8-10.8) K/uL RBC (4.7-6.1) M/uL Hgb (14.0-18.0) g/dL Hct (42-52) % MCV (80-100) fL MCH (25-34) pg MCHC (32-36) g/dL RDW Std Deviation (36.4-46.3) fL RDW Coeff of Joey (11.5-14.5) % Plt Count (130-400) K/uL Immature Gran % (Auto) % Neut % (Auto) % Lymph % (Auto) % [facility] [facility] % (Auto) % Eos % (Auto) % Baso % (Auto) % Immature Gran # (Auto) (0.00-0.02) K/uL Neut # (Auto) (1.4-6.5) K/uL Lymph # (Auto) (1.2-3.4) K/uL [facility] [facility] # (Auto) (0.11-0.59) K/uL Eos # (Auto) (0-0.5) K/uL Baso # (Auto) (0-0.2) K/uL Platelet Estimate (Normal) Polychromasia Poikilocytosis Echinocytes PT 19.4 H (9.0-12.0) Seconds INR 2.0 H (0.9-1.1) Sodium 133 L (136-145) mmol/L Potassium 4.3 (3.5-5.1) mmol/L Chloride 109 H (98-107) mmol/L Carbon Dioxide 20 L (21-32) mmol/L Anion Gap 4.0 (3-11) BUN 8 (7-18) mg/dl Creatinine 0.62 (0.6-1.4) mg/dl Est Cr Clr Drug Dosing 159.1 Est GFR ( Amer) 132.2 Est GFR (Non-Af Amer) 114.1 BUN/Creatinine Ratio 12.5 (10-20) Glucose 81 (70-99) mg/dl Calcium 7.6 L (8.5-10.1) mg/dl Phosphorus (2.5-4.9) mg/dl Magnesium (1.8-2.4) mg/dl Total Bilirubin 11.6 H (0.2-1) mg/dl Direct Bilirubin 6.4 H (0-0.2) mg/dl AST 49 H (15-37) U/L ALT 31 (12-78) U/L Alkaline Phosphatase 124 H (45-117) U/L Ammonia 54.0 H (11-32) umol/L Troponin I (0-0.045) ng/ml Total Protein 5.6 L (6.4-8.2) gm/dl Albumin 1.5 L (3.4-5.0) gm/dl Globulin 4.1 H (2.5-4.0) gm/dl Albumin/Globulin Ratio 0.4 L (0.9-2) Lipase (73-393) U/L Urine Color Urine Appearance (Clear) Urine pH (4.5-7.5) Ur Specific [place] (1.000-1.030) Urine Protein (Negative) Urine Glucose (UA) (Negative) Urine Ketones (Negative) Urine Blood (Negative) Urine Nitrite (Negative) Urine Bilirubin (Negative) Urine Urobilinogen (Negative) Ur Leukocyte Esterase (Negative) Urine Opiates Screen (Neg) Ur Methadone, Qual (Neg) Urine Barbiturates (Neg) Ur Phencyclidine (PCP) (Neg) U Amphetamin/Meth Scrn (Neg) MDMA (Ecstasy) Screen (Neg) U Benzodiazepines Scrn (Neg) Ur Cocaine Metabolite (Neg) U Marijuana (THC) Screen (Neg) 02/25/19 02/24/19 02/24/19 Range/Units 09:00 15:58 12:40 WBC 3.35 L (4.8-10.8) K/uL RBC 2.70 L (4.7-6.1) M/uL Hgb 8.2 L (14.0-18.0) g/dL Hct 25.0 L (42-52) % MCV 92.6 (80-100) fL MCH 30.4 (25-34) pg MCHC 32.8 (32-36) g/dL RDW Std Deviation 60.9 H (36.4-46.3) fL RDW Coeff of Joey 18.2 H (11.5-14.5) % Plt Count 45 L (130-400) K/uL Immature Gran % (Auto) % Neut % (Auto) % Lymph % (Auto) % [facility] % (Auto) % Eos % (Auto) % Baso % (Auto) % Immature Gran # (Auto) (0.00-0.02) K/uL Neut # (Auto) (1.4-6.5) K/uL Lymph # (Auto) (1.2-3.4) K/uL [facility] # (Auto) (0.11-0.59) K/uL Eos # (Auto) (0-0.5) K/uL Baso # (Auto) (0-0.2) K/uL Platelet Estimate Decreased L (Normal) Polychromasia Poikilocytosis Echinocytes PT (9.0-12.0) Seconds INR (0.9-1.1) Sodium (136-145) mmol/L Potassium (3.5-5.1) mmol/L Chloride (98-107) mmol/L Carbon Dioxide (21-32) mmol/L Anion Gap (3-11) BUN (7-18) mg/dl Creatinine (0.6-1.4) mg/dl Est Cr Clr Drug Dosing Est GFR ( Amer) Est GFR (Non-Af Amer) BUN/Creatinine Ratio (10-20) Glucose (70-99) mg/dl Calcium (8.5-10.1) mg/dl Phosphorus (2.5-4.9) mg/dl Magnesium (1.8-2.4) mg/dl Total Bilirubin (0.2-1) mg/dl Direct Bilirubin (0-0.2) mg/dl AST (15-37) U/L ALT (12-78) U/L Alkaline Phosphatase (45-117) U/L Ammonia 63.0 H (11-32) umol/L Troponin I (0-0.045) ng/ml Total Protein (6.4-8.2) gm/dl Albumin (3.4-5.0) gm/dl Globulin (2.5-4.0) gm/dl Albumin/Globulin Ratio (0.9-2) Lipase (73-393) U/L Urine Color Urine Appearance (Clear) Urine pH (4.5-7.5) Ur Specific [place] (1.000-1.030) Urine Protein (Negative) Urine Glucose (UA) (Negative) Urine Ketones (Negative) Urine Blood (Negative) Urine Nitrite (Negative) Urine Bilirubin (Negative) Urine Urobilinogen (Negative) Ur Leukocyte Esterase (Negative) Urine Opiates Screen Neg (Neg) Ur Methadone, Qual Neg (Neg) Urine Barbiturates Neg (Neg) Ur Phencyclidine (PCP) Neg (Neg) U Amphetamin/Meth Scrn Neg (Neg) MDMA (Ecstasy) Screen Neg (Neg) U Benzodiazepines Scrn Neg (Neg) Ur Cocaine Metabolite Neg (Neg) U Marijuana (THC) Screen Neg (Neg) 02/24/19 02/24/19 02/24/19 Range/Units 12:40 12:40 12:40 WBC 3.59 L (4.8-10.8) K/uL RBC 2.65 L (4.7-6.1) M/uL Hgb 8.1 L (14.0-18.0) g/dL Hct 24.4 L (42-52) % MCV 92.1 (80-100) fL MCH 30.6 (25-34) pg MCHC 33.2 (32-36) g/dL RDW Std Deviation 62.9 H (36.4-46.3) fL RDW Coeff of Joey 18.6 H (11.5-14.5) % Plt Count 48 L (130-400) K/uL Immature Gran % (Auto) 0.3 % Neut % (Auto) 65.2 % Lymph % (Auto) 20.6 % [facility] [facility] % (Auto) 10.0 % Eos % (Auto) 3.6 % Baso % (Auto) 0.3 % Immature Gran # (Auto) 0.01 (0.00-0.02) K/uL Neut # (Auto) 2.34 (1.4-6.5) K/uL Lymph # (Auto) 0.74 L (1.2-3.4) K/uL [facility] # (Auto) 0.36 (0.11-0.59) K/uL Eos # (Auto) 0.13 (0-0.5) K/uL Baso # (Auto) 0.01 (0-0.2) K/uL Platelet Estimate Decreased L (Normal) Polychromasia 1+ Poikilocytosis Present Echinocytes 1+ PT 21.0 H (9.0-12.0) Seconds INR 2.2 H (0.9-1.1) Sodium 131 L (136-145) mmol/L Potassium 4.2 (3.5-5.1) mmol/L Chloride 107 (98-107) mmol/L Carbon Dioxide 20 L (21-32) mmol/L Anion Gap 4.0 (3-11) BUN 7 (7-18) mg/dl Creatinine 0.57 L (0.6-1.4) mg/dl Est Cr Clr Drug Dosing Not Reportable Est GFR ( Amer) 136.8 Est GFR (Non-Af Amer) 118.1 BUN/Creatinine Ratio 12.7 (10-20) Glucose 111 H (70-99) mg/dl Calcium 7.6 L (8.5-10.1) mg/dl Phosphorus 2.6 (2.5-4.9) mg/dl Magnesium 1.7 L (1.8-2.4) mg/dl Total Bilirubin 9.1 H (0.2-1) mg/dl Direct Bilirubin (0-0.2) mg/dl AST 53 H (15-37) U/L ALT 35 (12-78) U/L Alkaline Phosphatase 166 H (45-117) U/L Ammonia (11-32) umol/L Troponin I < 0.015 (0-0.045) ng/ml Total Protein 5.7 L (6.4-8.2) gm/dl Albumin 1.6 L (3.4-5.0) gm/dl Globulin 4.1 H (2.5-4.0) gm/dl Albumin/Globulin Ratio 0.4 L (0.9-2) Lipase 400 H (73-393) U/L Urine Color Urine Appearance (Clear) Urine pH (4.5-7.5) Ur Specific [place] (1.000-1.030) Urine Protein (Negative) Urine Glucose (UA) (Negative) Urine Ketones (Negative) Urine Blood (Negative) Urine Nitrite (Negative) Urine Bilirubin (Negative) Urine Urobilinogen (Negative) Ur Leukocyte Esterase (Negative) Urine Opiates Screen (Neg) Ur Methadone, Qual (Neg) Urine Barbiturates (Neg) Ur Phencyclidine (PCP) (Neg) U Amphetamin/Meth Scrn (Neg) MDMA (Ecstasy) Screen (Neg) U Benzodiazepines Scrn (Neg) Ur Cocaine Metabolite (Neg) U Marijuana (THC) Screen (Neg) 02/24/19 Range/Units 11:19 WBC (4.8-10.8) K/uL RBC (4.7-6.1) M/uL Hgb (14.0-18.0) g/dL Hct (42-52) % MCV (80-100) fL MCH (25-34) pg MCHC (32-36) g/dL RDW Std Deviation (36.4-46.3) fL RDW Coeff of Joey (11.5-14.5) % Plt Count (130-400) K/uL Immature Gran % (Auto) % Neut % (Auto) % Lymph % (Auto) % [facility] % (Auto) % Eos % (Auto) % Baso % (Auto) % Immature Gran # (Auto) (0.00-0.02) K/uL Neut # (Auto) (1.4-6.5) K/uL Lymph # (Auto) (1.2-3.4) K/uL [facility] # (Auto) (0.11-0.59) K/uL Eos # (Auto) (0-0.5) K/uL Baso # (Auto) (0-0.2) K/uL Platelet Estimate (Normal) Polychromasia Poikilocytosis Echinocytes PT (9.0-12.0) Seconds INR (0.9-1.1) Sodium (136-145) mmol/L Potassium (3.5-5.1) mmol/L Chloride (98-107) mmol/L Carbon Dioxide (21-32) mmol/L Anion Gap (3-11) BUN (7-18) mg/dl Creatinine (0.6-1.4) mg/dl Est Cr Clr Drug Dosing Est GFR ( Amer) Est GFR (Non-Af Amer) BUN/Creatinine Ratio (10-20) Glucose (70-99) mg/dl Calcium (8.5-10.1) mg/dl Phosphorus (2.5-4.9) mg/dl Magnesium (1.8-2.4) mg/dl Total Bilirubin (0.2-1) mg/dl Direct Bilirubin (0-0.2) mg/dl AST (15-37) U/L ALT (12-78) U/L Alkaline Phosphatase (45-117) U/L Ammonia (11-32) umol/L Troponin I (0-0.045) ng/ml Total Protein (6.4-8.2) gm/dl Albumin (3.4-5.0) gm/dl Globulin (2.5-4.0) gm/dl Albumin/Globulin Ratio (0.9-2) Lipase (73-393) U/L Urine Color Dark Yellow Urine Appearance Clear (Clear) Urine pH 8.5 H (4.5-7.5) Ur Specific [place] 1.019 (1.000-1.030) Urine Protein Negative (Negative) Urine Glucose (UA) Negative (Negative) Urine Ketones Negative (Negative) Urine Blood Negative (Negative) Urine Nitrite Negative (Negative) Urine Bilirubin 1+ H (Negative) Urine Urobilinogen Negative (Negative) Ur Leukocyte Esterase Negative (Negative) Urine Opiates Screen (Neg) Ur Methadone, Qual (Neg) Urine Barbiturates (Neg) Ur Phencyclidine (PCP) (Neg) U Amphetamin/Meth Scrn (Neg) MDMA (Ecstasy) Screen (Neg) U Benzodiazepines Scrn (Neg) Ur Cocaine Metabolite (Neg) U Marijuana (THC) Screen (Neg) PG Care Time/CCT Total # of Minutes Spent Total Time Spent with Patient: Total time spent is greater than 50% in coordination of care (as documented) at patient's floor/unit and/or counseling patient:
[2019-02-25] MEDS ORDERED: SODIUM CHLORIDE 0.9% 1000ML 1,000 ML IV SCH (12:45)
[2019-02-25] MEDS: RIFAXIMIN 550 MG TABLET PO SCH ×2 (14:16→20:07)
--- NOTE | 2019-02-25 16:22 | Ultrasound Report ---
DOPPLER ULTRASOUND OF THE HEPATIC AND PORTAL VASCULATURE CLINICAL HISTORY: COMPARISON STUDY: Abdominal CT dated 02/24/2019. TECHNIQUE: Real-time, grayscale, and color Doppler sonography of the hepatic and portal vasculature i s performed. The examination is significantly degraded due to bowel gas and lack of patient cooperati on. FINDINGS: The liver is cirrhotic in morphology and heterogeneous in echotexture. There is nodularity of the hepatic surface contour. The main portal vein is patent with bidirectional flow. The intrahepa tic left portal vein is patent. The intrahepatic portal right portal vein was not visualized. There i s a large recannulized periumbilical vein. The hepatic artery is patent. The right and middle hepatic veins are patent with loss of the normal venous waveforms. The left hepatic vein was not visualized. The IVC is patent as imaged. There is a small volume of abdominal ascites. IMPRESSION: 1. The main portal vein is patent with bidirectional flow. 2. The visualized hepatic veins and intrahepatic portal veins are patent. See above. 3. Cirrhosis and ascites. Dictated: 02/25/2019 4:05 PM Transcribed: 02/25/2019 4:17 PM Katja [id number] [email or web address] Electronically signed by: Wayne Mason M.D. 02/25/2019 4:21 PM
[2019-02-25] MEDS ORDERED: ALPRAZolam 0.25 MG TABLET PO PRN (19:30)
[2019-02-26 06:57] LABS: Mean Corpuscular Hgb Conc 33.1 g/dL (32-36)
[2019-02-26 07:10] LABS: Prothrombin Time 19.7 Seconds (9.0-12.0)
[2019-02-26 07:22] LABS: Hematocrit (blood only) 24.5 % (42-52); Hemoglobin 8.1 g/dL (14.0-18.0); Mean Corpuscular Hemoglobin 30.6 pg (25-34); Mean Corpuscular Volume 92.5 fL (80-100); RDW Coefficient of Variation 18.1 % (11.5-14.5); Red Blood Count 2.65 M/uL (4.7-6.1); White Blood Count 3.51 K/uL (4.8-10.8)
[2019-02-26 07:23] LABS: Platelet Count 59 K/uL (130-400)
[2019-02-26 07:24] LABS: Platelet Estimate Decreased (Normal)
[2019-02-26 07:35] LABS: Albumin Level 1.7 gm/dl (3.4-5.0); BUN Creatinine Ratio 10.3 (10-20); Bilirubin Direct 6.8 mg/dl (0-0.2); Calcium 7.5 mg/dl (8.5-10.1); Creatinine Clr Calc Pharmacy 133.3 ml/min; Est GFR (African American) 123.6; Est GFR (Non-African American) 106.6; Magnesium 1.6 mg/dl (1.8-2.4); Potassium 3.5 mmol/L (3.5-5.1); Total Protein 5.9 gm/dl (6.4-8.2)
[2019-02-26] MEDS: RIFAXIMIN 550 MG TABLET PO SCH ×2 (07:39→20:40)
[2019-02-26] MEDS: PANTOprazole 40 MG TAB PO SCH (07:39)
[2019-02-26] MEDS: LACTULOSE SYRUP 20 GM/30 ML UDC PO SCH ×3 (07:39→20:40)
[2019-02-26] MEDS: MAGNESIUM OXIDE 400 MG TAB PO SCH ×2 (07:39→20:39)
[2019-02-26] MEDS: MAGNESIUM SULFATE / D5W 1 GM/100 ML BAG IV SCH ×2 (10:02→11:03)
--- NOTE | 2019-02-26 12:38 | Gastroenterology Progress Note ---
Date of Service February 26, 2019 Assessment & Plan (1) Alcoholic cirrhosis: 1. Hold diuretics. Restart on DC at same dosing as prior to admission. 2. Advance to low salt, regular consistency diet. 3. DC on Rifaximin 550mg BID if pt able to pay for this expensive medication. accounting advisory services manager and our office nurses will assist. 4. No GI contraindication to DC. (2) Decompensated hepatic cirrhosis: (3) Hepatic encephalopathy: 1. Agree with lactulose enemas. 2. Unsure of baseline mental status. OP records mention dx of dementia with use of aricept. 3. Blood and urine cultures. 4. Unlikely to have adequate ascites for diagnostic tap, but also unlikely to have SBP with only small amt of ascites. 5. Would hold diuretics until hepatic encepalopathy is resolved then restart on DC. 6. When able to take po would add rifaximin 550mg BID. Subjective Pt more mentally clear today. Able to tell me today's date, where his is and why. Tells me he does not like the taste of lactulose (suspect he avoids taking as prescribed). Still some confusion today (per mother who knows him well and is at the bedside). Ammonia 63->26 Review of Systems Review of Systems: ROS: Gen: + confusion No lethargy, mild weakness/unsteadiness on ambulation Eyes: No eye redness, or pain, no recent vision changes Resp: No SOB, no cough Cardio: No palpitations/irregular beats, no chest pain GI: No abdominal pain, no nausea/vomiting : Denies pain on urination Skin: No jaundice, itching or new rashes Physical Exam Constitutional: WD/WN, vitals as above + ill appearing Eyes: PERRL, conjunctivae normal, anicteric sclerae ENMT: external ear and nose normal, oropharynx normal Neck: trachea midline, no thyromegaly Respiratory: normal respiratory effort, lungs clear to auscultation Cardiovascular: RRR, no murmur, no edema Gastrointestinal (Abdomen): normal bowel sounds, soft, nontender, no hepatosplenomegaly Skin: no rashes, warm and dry + jaundice Results & Data Vital Signs (Past 12 Hours) Vital Signs Temp Pulse Pulse Pulse Resp BP Pulse Ox 02/26/19 08:00 80 02/26/19 07:27 37.0 C 74 16 112/70 92 02/26/19 05:07 82 02/26/19 02:13 37.3 C 77 77 19 130/83 99 02/26/19 01:42 37.0 C 66 18 129/85 98
--- NOTE | 2019-02-26 17:40 | Hospitalist Progress Note ---
Date of Service February 26, 2019 Assessment & Plan (1) Hepatic encephalopathy: Presented with increased confusion secondary to hepatic encephalopathy. Patient had been unable to take any of his medications on the day of admission, including his lactulose, ammonia = 63 on admission and now improved to 26, mental status much improved but still remains a little confused and unsteady -received one lactulose enema and now on lactulose po tid -is having 2-3 BMs daily -continue lactulose tid for goal BM 2-3 times daily -added on Rifaximin and we completed the prior auth so now copay only $3/mo rather than $1000 -Appreciate GI consultation, patient was recently evaluated by team on 02/14/2019 for possible ascites, at that time there was limited ascites not worth paracentesis . CT abd/pel here with minimal ascites, he has no abdominal pain, no fevers, do not suspect SBP No evidence of portal vein thrombosis on CT or US -Follows with Hepatology at [facility] and is being evaluated for liver transplant-plan is to get on the list in Apr 2019 -follow NH3, LFTs, INR, CBC -can advance diet to low sodium -continue to hold lasix and aldactone, gave 1L of gentle IVFs overnight as per GI recommendation--> restart diuretics when HE resolved (2) End-stage liver disease: as above TBili more elevated today at 13 MELD score today 27 (3) Cirrhosis due to hemochromatosis: as above MELD score today 27 Follow labs UTD on HCC screening (4) Hyperammonemia: as above, now resolved (5) Hyperbilirubinemia: secondary to cirrhosis as above (6) Thrombocytopenia: - Plt = increased to 59 today Secondary to cirrhosis (7) Hyponatremia: - Na= 131, stable Likely secondary to cirrhosis -follow BMP (8) Anemia: -Stable with hemoglobin = 8.1 today, appears that he runs between 7-9 rece ntly, no concerns for bleeding Had EGD and Colonoscopy in the last 2 weeks with no active bleeding (9) Portal hypertension: Continue to hold diuretics for acute hepatic encephalopathy as above -as it turns out the patient is on Nadolol 40mg daily as per mom--> I added this to home med rec. Metoprolol is also prescribed but she said he is NOT taking libby t (10) DVT prophylaxis: teds, no chemical anticoagulation at this time CODE: FULL Dispo: From home, lives with mother and father, PT/OT gen recommend return home with family Hopeful for dc to home tomorrow Subjective Much improved today but not back to baseline mental status as per Mom at bedside. He is able to recall events from throughout today but does not recall meeting me yesterday. Has had 2 BMs today, No nausea. Is alba full liquids and hungry for regular food. Is walking but mom reports he is not steady on his feet. Review of Systems Review of Systems: All systems reviewed & are unremarkable except as noted in HPI & below Physical Exam Constitutional: WD/WN, vitals as above no acute distress Eyes: + scleral abnormality (icterus) ENMT: external ear and nose normal, oropharynx normal Neck: trachea midline, no thyromegaly Respiratory: normal respiratory effort, lungs clear to auscultation Cardiovascular: Rate/Rhythm: regular rate and regular rhythm Heart Sounds: no murmur Extremities: + edema (trace pitting edema) Chest (Breasts): Chest: normal inspection of chest Gastrointestinal (Abdomen): normal bowel sounds, soft, nontender, no hepatosplenomegaly Musculoskeletal: Extremities: extremities normal to inspection; no cyanosis and no clubbing Skin: + jaundice Neurologic: moves all extremities, awake and + confused (mild); no focal motor deficits Psychiatric: Orientation: alert, oriented x 3 and cooperative Eye Contact: good eye contact Speech: normal rate/rhythm/volume of speech Results & Data Vital Signs (Past 12 Hours) Vital Signs Temp Pulse Pulse Resp BP Pulse Ox 02/26/19 15:53 36.8 C 73 16 116/63 100 02/26/19 08:00 80 02/26/19 07:27 37.0 C 74 16 112/70 92 Laboratory Results 02/26/19 02/26/19 02/26/19 Range/Units 06:42 06:42 06:42 WBC 3.51 L (4.8-10.8) K/uL RBC 2.65 L (4.7-6.1) M/uL Hgb 8.1 L (14.0-18.0) g/dL Hct 24.5 L (42-52) % MCV 92.5 (80-100) fL MCH 30.6 (25-34) pg MCHC 33.1 (32-36) g/dL RDW Std Deviation 61.0 H (36.4-46.3) fL RDW Coeff of Joey 18.1 H (11.5-14.5) % Plt Count 59 L (130-400) K/uL Platelet Estimate Decreased L (Normal) PT (9.0-12.0) Seconds INR (0.9-1.1) Sodium 131 L (136-145) mmol/L Potassium 3.5 D (3.5-5.1) mmol/L Chloride 107 (98-107) mmol/L Carbon Dioxide 21 (21-32) mmol/L Anion Gap 3.0 (3-11) BUN 8 (7-18) mg/dl Creatinine 0.73 (0.6-1.4) mg/dl Est Cr Clr Drug Dosing 133.3 ml/min Est GFR ( Amer) 123.6 Est GFR (Non-Af Amer) 106.6 BUN/Creatinine Ratio 10.3 (10-20) Glucose 88 (70-99) mg/dl Calcium 7.5 L (8.5-10.1) mg/dl Magnesium 1.6 L (1.8-2.4) mg/dl Total Bilirubin 13.0 H (0.2-1) mg/dl Direct Bilirubin 6.8 H (0-0.2) mg/dl AST 53 H (15-37) U/L ALT 34 (12-78) U/L Alkaline Phosphatase 115 (45-117) U/L Ammonia 26.0 (11-32) umol/L Total Protein 5.9 L (6.4-8.2) gm/dl Albumin 1.7 L (3.4-5.0) gm/dl 02/26/19 Range/Units 06:42 WBC (4.8-10.8) K/uL RBC (4.7-6.1) M/uL Hgb (14.0-18.0) g/dL Hct (42-52) % MCV (80-100) fL MCH (25-34) pg MCHC (32-36) g/dL RDW Std Deviation (36.4-46.3) fL RDW Coeff of Joey (11.5-14.5) % Plt Count (130-400) K/uL Platelet Estimate (Normal) PT 19.7 H (9.0-12.0) Seconds INR 2.0 H (0.9-1.1) Sodium (136-145) mmol/L Potassium (3.5-5.1) mmol/L Chloride (98-107) mmol/L Carbon Dioxide (21-32) mmol/L Anion Gap (3-11) BUN (7-18) mg/dl Creatinine (0.6-1.4) mg/dl Est Cr Clr Drug Dosing ml/min Est GFR ( Amer) Est GFR (Non-Af Amer) BUN/Creatinine Ratio (10-20) Glucose (70-99) mg/dl Calcium (8.5-10.1) mg/dl Magnesium (1.8-2.4) mg/dl Total Bilirubin (0.2-1) mg/dl Direct Bilirubin (0-0.2) mg/dl AST (15-37) U/L ALT (12-78) U/L Alkaline Phosphatase (45-117) U/L Ammonia (11-32) umol/L Total Protein (6.4-8.2) gm/dl Albumin (3.4-5.0) gm/dl PG Care Time/CCT Total # of Minutes Spent Total Time Spent with Patient: Total time spent is greater than 50% in coordination of care (as documented) at patient's floor/unit and/or counseling patient:
[2019-02-27 07:31] LABS: Mean Corpuscular Hgb Conc 32.8 g/dL (32-36)
[2019-02-27 07:38] LABS: Prothrombin Time 19.6 Seconds (9.0-12.0)
[2019-02-27 08:00] LABS: Albumin Level 1.7 gm/dl (3.4-5.0); BUN Creatinine Ratio 6.8 (10-20); Calcium 7.5 mg/dl (8.5-10.1); Creatinine Clr Calc Pharmacy 145.7 ml/min; Est GFR (Non-African American) 110.5; Magnesium 1.7 mg/dl (1.8-2.4); Potassium 3.7 mmol/L (3.5-5.1)
[2019-02-27 08:02] LABS: Hematocrit (blood only) 23.8 % (42-52); Hemoglobin 7.8 g/dL (14.0-18.0); Mean Corpuscular Hemoglobin 30.4 pg (25-34); Mean Corpuscular Volume 92.6 fL (80-100); RDW Coefficient of Variation 17.7 % (11.5-14.5); RDW Standard Deviation 58.9 fL (36.4-46.3); Red Blood Count 2.57 M/uL (4.7-6.1); White Blood Count 4.54 K/uL (4.8-10.8)
[2019-02-27 08:04] LABS: Platelet Count 68 K/uL (130-400); Platelet Estimate Decreased (Normal)
[2019-02-27] MEDS: NADOLOL 40 MG TAB PO SCH (08:07)
[2019-02-27] MEDS: LACTULOSE SYRUP 20 GM/30 ML UDC PO SCH ×4 (08:07→20:39)
[2019-02-27 08:08] LABS: Bilirubin Direct 6.4 mg/dl (0-0.2); Total Protein 5.8 gm/dl (6.4-8.2)
[2019-02-27] MEDS: RIFAXIMIN 550 MG TABLET PO SCH ×2 (08:08→20:40)
[2019-02-27] MEDS: MAGNESIUM OXIDE 400 MG TAB PO SCH ×2 (08:08→20:39)
[2019-02-27] MEDS: PANTOprazole 40 MG TAB PO SCH (08:08)
[2019-02-27] MEDS ORDERED: MAGNESIUM SULFATE / D5W 1 GM/100 ML BAG IV ONE (15:00)
--- NOTE | 2019-02-27 15:02 | Hospitalist Progress Note ---
Date of Service February 27, 2019 Assessment & Plan (1) Hepatic encephalopathy: Presented with increased confusion secondary to hepatic encephalopathy. Patient had been unable to take any of his medications on the day of admission, including his lactulose, ammonia = 63 on admission and now improved to 26, mental status was much improved but today is worse again -We will increase lactulose to 4 times daily as he has not had a bowel movement yet today -Goal is to have 2-3 BMs daily -added on Rifaximin this admission and we completed the prior auth so now copay only $3/mo rather than $1000 -Appreciate GI consultation, patient was recently evaluated by team on 02/14/2019 for possible ascites, at that time there was limited ascites not worth paracentesis . CT abd/pel here with minimal ascites, he has no abdominal pain, no fevers, do not suspect SBP No evidence of portal vein thrombosis on CT or US -Follows with Hepatology at [facility] and is being evaluated for liver transplant-plan is to get on the list in Apr 2019 -follow NH3, LFTs, INR, CBC in the morning -continue to hold lasix and aldactone as per GI recommendations, gave 1L of gentle IVFs on the first night of admission as per GI recommendation--> restart diuretics when HE resolved (2) End-stage liver disease: as above TBili improved down to 11 MELD score continues to be 27 (3) Cirrhosis due to hemochromatosis: as above MELD score today 27 Follow labs UTD on HCC screening (4) Hyperammonemia: as above (5) Hyperbilirubinemia: secondary to cirrhosis as above (6) Thrombocytopenia: - Plt = increased to 68 today Secondary to cirrhosis (7) Hyponatremia: - Na= 130, slightly worse, has not been on his diuretics Likely secondary to cirrhosis -follow BMP -Considering restarting diuretics tomorrow (8) Anemia: -Slight decrease today with hemoglobin = 1.8, appears that he runs between 7-9 recently, no concerns for bleeding Had EGD and Colonoscopy in the last 2 weeks with no active bleeding (9) Portal hypertension: Continue to hold diuretics for acute hepatic encephalopathy as above -Restarted his home nadolol 40mg daily (10) Hypomagnesemia: Continue p.o. magnesium and added 1 g of magnesium IV a day (11) DVT prophylaxis: teds, no chemical anticoagulation at this time CODE: FULL Dispo: From home, lives with mother and father, PT/OT gen recommend return home with family Not medically stable for discharge as encephalopathy has worsened today likely due to no bowel movements Subjective Patient more confused today. I saw him twice. The first time he was sitting in a chair trying to eat lunch very slowly. He was oriented x3, but was slow to respond to questions and kept saying "something is not right." When I saw him again a few hours later, he was still trying to eat the same lunch and had actually fallen asleep with a bite of food on the fork in his hand. He woke up and did respond to questions though at that time. He denies chest pain or shortness of breath, no abdominal pain. He had not moved his bowels all day. Telemetry with normal sinus rhythm and PVCs with rates in the 70s to 80s Review of Systems Review of Systems: All systems reviewed & are unremarkable except as noted in HPI & below Physical Exam Constitutional: WD/WN, vitals as above no acute distress Eyes: + scleral abnormality (icterus) Neck: trachea midline, no thyromegaly Respiratory: normal respiratory effort, lungs clear to auscultation Cardiovascular: RRR, no murmur, no edema Rate/Rhythm: regular rate and regular rhythm Heart Sounds: no murmur Extremities: + edema (trace pitting edema) Chest (Breasts): Chest: normal inspection of chest Gastrointestinal (Abdomen): normal bowel sounds, soft, nontender, no hepatosplenomegaly Musculoskeletal: Extremities: extremities normal to inspection; no cyanosis and no clubbing Skin: + jaundice Neurologic: moves all extremities, awake (but drowsy) and + confused (mild); no focal motor deficits Psychiatric: Orientation: alert, oriented x 3 and cooperative Speech: + abnormal rate/rhythm/volume of speech (slow speech) Lymphatic: no lymphedema Results & Data Vital Signs (Past 12 Hours) Vital Signs Temp Pulse Pulse Resp BP Pulse Ox 02/27/19 11:02 36.9 C 73 18 146/88 H 99 02/27/19 08:00 82 02/27/19 07:28 36.8 C 74 22 126/71 99 02/27/19 04:25 36.7 C 77 18 124/76 100 Laboratory Results 12/20/19 12/20/19 12/20/19 Range/Units 07:08 07:08 07:08 WBC 4.54 L (4.8-10.8) K/uL RBC 2.57 L (4.7-6.1) M/uL Hgb 7.8 L (14.0-18.0) g/dL Hct 23.8 L (42-52) % MCV 92.6 (80-100) fL MCH 30.4 (25-34) pg MCHC 32.8 (32-36) g/dL RDW Std Deviation 58.9 H (36.4-46.3) fL RDW Coeff of Joey 17.7 H (11.5-14.5) % Plt Count 68 L (130-400) K/uL Platelet Estimate Decreased L (Normal) PT 19.6 H (9.0-12.0) Seconds INR 2.0 H (0.9-1.1) Sodium 130 L (136-145) mmol/L Potassium 3.7 (3.5-5.1) mmol/L Chloride 102 (98-107) mmol/L Carbon Dioxide 20 L (21-32) mmol/L Anion Gap 8.0 (3-11) BUN 5 L (7-18) mg/dl Creatinine 0.67 (0.6-1.4) mg/dl Est Cr Clr Drug Dosing 145.7 ml/min Est GFR ( Amer) 128.0 Est GFR (Non-Af Amer) 110.5 BUN/Creatinine Ratio 6.8 L (10-20) Glucose 107 H (70-99) mg/dl Calcium 7.5 L (8.5-10.1) mg/dl Magnesium 1.7 L (1.8-2.4) mg/dl Total Bilirubin 11.0 H (0.2-1) mg/dl Direct Bilirubin 6.4 H (0-0.2) mg/dl AST 60 H (15-37) U/L ALT 37 (12-78) U/L Alkaline Phosphatase 135 H (45-117) U/L Total Protein 5.8 L (6.4-8.2) gm/dl Albumin 1.7 L (3.4-5.0) gm/dl PG Care Time/CCT Total # of Minutes Spent Total Time Spent with Patient: Total time spent is greater than 50% in coordination of care (as documented) at patient's floor/unit and/or counseling patient:
[2019-02-27] MEDS ORDERED: cefTRIAXone SODIUM 2,000 MG in DEXTROSE 5% 50 ML IV SCH (16:00)
[2019-02-28 06:24] LABS: Mean Corpuscular Hgb Conc 33.2 g/dL (32-36)
[2019-02-28 06:36] LABS: Hematocrit (blood only) 23.5 % (42-52); Hemoglobin 7.8 g/dL (14.0-18.0); INR 2.1 (0.9-1.1); Mean Corpuscular Hemoglobin 30.6 pg (25-34); Mean Corpuscular Volume 92.2 fL (80-100); Prothrombin Time 20.5 Seconds (9.0-12.0); RDW Coefficient of Variation 18.3 % (11.5-14.5); RDW Standard Deviation 58.3 fL (36.4-46.3); Red Blood Count 2.55 M/uL (4.7-6.1); White Blood Count 4.15 K/uL (4.8-10.8)
[2019-02-28 06:47] LABS: Platelet Count 63 K/uL (130-400)
[2019-02-28 06:51] LABS: Basophils # (auto) 0.01 K/uL (0-0.2); Basophils % (auto) 0.2 %; Echinocytes 2+; Eosinophils # (auto) 0.18 K/uL (0-0.5); Eosinophils % (auto) 4.3 %; Immature Granulocytes # (auto) 0.02 K/uL (0.00-0.02); Immature Granulocytes % (auto) 0.5 %; Lymphocytes # (auto) 0.74 K/uL (1.2-3.4); Lymphocytes % (auto) 17.8 %; Monocytes # (auto) 0.56 K/uL (0.11-0.59); Monocytes % (auto) 13.5 %; Neutrophils # (auto) 2.64 K/uL (1.4-6.5); Neutrophils % (auto) 63.7 %
[2019-02-28 06:56] LABS: Albumin Level 1.5 gm/dl (3.4-5.0); BUN Creatinine Ratio 8.2 (10-20); Bilirubin Direct 5.9 mg/dl (0-0.2); Calcium 7.2 mg/dl (8.5-10.1); Creatinine Clr Calc Pharmacy 177.6 ml/min; Est GFR (African American) 138.9; Est GFR (Non-African American) 119.8; Magnesium 1.8 mg/dl (1.8-2.4); Potassium 3.7 mmol/L (3.5-5.1)
[2019-02-28 06:58] LABS: Bilirubin,Total 10.8 mg/dl (0.2-1); Total Protein 5.4 gm/dl (6.4-8.2)
[2019-02-28] MEDS: LACTULOSE SYRUP 20 GM/30 ML UDC PO SCH ×2 (08:15→13:29)
[2019-02-28] MEDS: MAGNESIUM OXIDE 400 MG TAB PO SCH (08:15)
[2019-02-28] MEDS: NADOLOL 40 MG TAB PO SCH (08:15)
[2019-02-28] MEDS: RIFAXIMIN 550 MG TABLET PO SCH (08:15)
[2019-02-28] MEDS: PANTOprazole 40 MG TAB PO SCH (08:15)
[2019-02-28] MEDS ORDERED: ERGOCALCIFEROL 50,000 UNITS CAP PO SCH (09:00)
[2019-02-28] MEDS: SPIRONOLACTONE 100 MG TAB PO SCH (09:45)
[2019-02-28] MEDS ORDERED: NYSTATIN 0.625 ML, DEXAMETHASONE CONC 0.078 MG, DiphenhydrAMINE Syrup 6.25 MG, ORA-SWEE... PO ONE (11:48)
--- NOTE | 2019-02-28 11:56 | Discharge Summary ---
Date of Service February 28, 2019 Admission HPI Per Admitting Provider This is a 53 yo M who has been hospitalized 3 times in the past month for reasons surrounding his end-stage liver disease secondary to hemochromatosis. These included admits on 01/28 was seen here in our ER for decompensated hepatic cirrhosis where he was transferred to [facility] for worsening liver function. Was then seen on 02/14 for chest pain and hematochezia which resolved without significant intervention and was evaluated by GI. The patient now represents to our ER with worsening altered mental status which began this morning per his mother who is at bedside and supplies the history. Of note pt has been preparing for liver transplant evaluation. Other past medical history of cirrhosis, hyperbilirubinemia, hyperammonia, likely secondary to alcohol abuse history, and heterozygous hemochromatosis. She notes that he was in his normal state of health yesterday, talking, walking, eating and drinking as he typically would. This morning he was very sleepy and unable to be gotten up out of bed, eventually did get up and walked to the kitchen and then back to the living room chair however remained significantly confused and was not answering to her questions appropriately. She then brought him to the ER today. Patient received dose of IV Ativan 1 mg as he became combative. Patient is resting comfortably during my exam, but does not participate in conversation. Ammonia level = 63, during last hospital visit it was in the 40s and there were no issues with acute confusion, patient did not take any of his morning medications today due to AMS. AST = 53, ALT = 35, alk phos equals 166, total bili = 9.1. INR = 2.2 CT of head is negative for any acute findings, CXR negative CT of abdomen is in process. Principal Diagnosis Hepatic encephalopathy Discharge Exam Constitutional WD/WN, vitals as above no acute distress Eyes + scleral abnormality (icterus) ENMT Ears: no hearing impairment and no external ear abnormality Mouth: + oropharynx abnormality (right tongue with traumatic ulceration on the side) Neck trachea midline, no thyromegaly Respiratory normal respiratory effort, lungs clear to auscultation Cardiovascular Rate/Rhythm: regular rate and regular rhythm Heart Sounds: no murmur Extremities: + edema (trace pitting edema) Chest (Breasts) Chest: normal inspection of chest Gastrointestinal (Abdomen) normal bowel sounds, soft, nontender, no hepatosplenomegaly Musculoskeletal Extremities: extremities normal to inspection; no cyanosis and no clubbing Skin + jaundice Neurologic moves all extremities and awake; no focal motor deficits and not confused Gait: + wide-based gait; not gait assisted Psychiatric Orientation: alert, oriented x 3 and cooperative Eye Contact: good eye contact Speech: normal rate/rhythm/volume of speech Discharge Data Allergies Allergy/AdvReac Type Severity Reaction Status Date / Time No Known Allergies Allergy Verified 02/24/19 11:42 Consultations 02/24/19 15:45 ED Decision to Admit Stat 02/24/19 18:07 Consult Case Management - Discharge Planning Routine 02/25/19 09:11 Consult Gastroenterology Routine Ordered Studies 02/24/19 12:13 CT head/brain wo con Stat 02/24/19 15:22 CT abd pelvis IV con only Stat 02/25/19 12:45 US duplex portal hepatic veins Urgent CXR Hospital Course (1) Hepatic encephalopathy: Presented with increased confusion secondary to hepatic encephalopathy. Patient had been unable to take any of his medications on the day of admission, including his lactulose, ammonia = 63 on admission and now improved to 26, mental status was much improved but today is worse again Unclear what set him over the edge but as per my d/w GI, it wouldn't take much. Blood cultures no growth Ur cx with pin point growth and was started on Rocephin and had great improvement. However, Ur cx then with mixed growth/contaminated sample. -will finish out abx course with keflex after discharge just in case UTI was contributing to HE -increased lactulose to 4 times daily and aim for BMs 2-3x/day -added on Rifaximin this admission and we completed the prior auth so now copay only $3/mo rather than $1000 -Appreciate GI consultation, patient was recently evaluated by team on 02/14/2019 for possible ascites, at that time there was limited ascites not worth paracentesis . -CT abd/pel here with minimal ascites, he has no abdominal pain, no fevers, do not suspect SBP -No evidence of portal vein thrombosis on CT or US -Follows with Hepatology at [facility] and is being evaluated for liver transplant-plan is to get on the list in Apr 2019 -follow labs as outpt -held lasix and aldactone during acute HE as per GI recommendations, gave 1L of gentle IVFs on the first night of admission as per GI recommendation--> restart diuretics now that HE resolved -despite NH3 level up to 81 on day of discharge, he was mentally the clearest he had been the whole time and was feeling vrey well, stable for dc to home (2) End-stage liver disease: as above TBili improved down to 10.8 MELD score continues to be 27 (3) Cirrhosis due to hemochromatosis: as above MELD score today 27 Follow labs UTD on HCC screening (4) Hyperammonemia: as above (5) Hyperbilirubinemia: secondary to cirrhosis as above (6) Thrombocytopenia: - Plt = stable in the 60s, improved from admission in the 40s Secondary to cirrhosis (7) Hyponatremia: - Na= 129, slightly worse, has not been on his diuretics Likely secondary to cirrhosis -follow BMP as outpt - restarting diuretics today (8) Anemia: -low but stable hemoglobin = 7.8, appears that he runs between 7-9 recently, no concerns for bleeding Had EGD and Colonoscopy in the last 2 weeks with no active bleeding -follow CBC as outpt (9) Portal hypertension: restart diuretics as above -continue home nadolol 40mg daily -had recent EGD with portal gastropathy noted but no esophageal varices (10) Hypomagnesemia: Continue p.o. magnesium (11) DVT prophylaxis: teds, no chemical anticoagulation CODE: FULL Dispo: From home, lives with mother and father, PT/OT evals recommend return home with family Stable for dc to home Total Time Total Time Spent Total Time Spent (In Minutes): 35 min Total Time Includes: Examination of the Patient, Discharge Planning and Medication Reconciliation Discharge Plan Discharge Items Patient Disposition: Home - Self-Care Reason For Visit: HEPATIC ENCEPHALOPATHY Discharge Diagnosis: Hepatic encephalopathy Condition on Discharge: Fair Goals: You have been hospitalized for an acute medical problem. During your stay at [facility], we have made an effort to correct the problem that brought you to the hospital while keeping you as comfortable as possible. Medications were used to bring your condition under control and your discharge instructions will include directions for any medications you should take after leaving the hospital. Please make sure you see your Primary Care Provider as part of your follow up plan. Activity: Resume your previous activity Bathing: No limitations Weightbearing: Full weightbearing Non-emergency contact: Primary Care Provider and Bioengineer Call non-emergency contact if: you have any medication questions and your symptoms worsen Follow-up/Referrals: Dom eBnton [Primary Care Provider] - 03/03/19 9:00 am (Please, follow up with Dr. Benton on SaturdayMarch 03 at 9:00 am. *If you need to change this appointment, call the office at [phone].) Diet: Low Sodium (2gm) Fluids: 1800ml (7 cups) Addtl Attending Provider Instructions: It is very important that you take the lactulose 4 times a day to prevent you from getting encephalopathy again. You should be having bowel movements at least 2-3 times per day. Your urine had a possible infection and you should finish out a course of antibiotics for this. Please take cephalexin 500mg twice a day x 6 more days. Please start taking the Xifaxin twice a day. Please follow up with your PCP as scheduled. Pending Studies at Discharge: No Stand-Alone Forms: My [facility] Medications and DC Order Prescriptions: New Xifaxan 550 mg Tablet 550 mg PO BID Qty: 60 RF: 0 cephalexin [Keflex] 500 mg capsule 500 mg PO BID 6 Days Qty: 12 RF: 0 Continued nadolol 20 mg tablet 20 mg PO DAILY RF: 0 ergocalciferol (vitamin D2) [Vitamin D2] 50,000 unit capsule 50,000 unit PO SA RF: 0 magnesium oxide 400 mg (241.3 mg magnesium) tablet 400 mg PO BID RF: 0 spironolactone 100 mg tablet 100 mg PO QAM RF: 0 omeprazole 20 mg Capsule,Delayed Release(Dr/Ec) 20 mg PO QAM RF: 0 zinc 50 mg Tablet 50 mg PO BID RF: 0 furosemide 20 mg Tablet 40 mg PO QAM RF: 0 Changed lactulose 10 gram/15 mL solution 30 ml PO QID Qty: 0 RF: 0 Discharge Orders: Discharge Order (Routine); Ordered 02/28/19 Ordered By: Diann Weiss Admission Data Admit Date/Time: 02/25/19 13:34 Attending Provider: Diann Weiss Admit Provider: Doroteo Juárez Primary Care Provider: Dom Benton Other Providers: Bran Fonseca ; Nirmal Senior
== END 2019-02-28 14:46 | disposition home or self-care (01) | DRG 442 ==
LOC: 2N 10:45 → ED 10:45 → SUATTDRO 16:01 → 2N 17:39

== ENCOUNTER 2019-03-21 17:15 | Inpatient (IN) ==
[2019-03-21 17:50] LABS: Mean Corpuscular Hgb Conc 33.2 g/dL (32-36)
[2019-03-21 18:02] LABS: Hemoglobin 8.3 g/dL (14.0-18.0); Mean Corpuscular Hemoglobin 28.3 pg (25-34); Mean Corpuscular Volume 85.3 fL (80-100); RDW Standard Deviation 58.6 fL (36.4-46.3); Red Blood Count 2.93 M/uL (4.7-6.1); White Blood Count 5.99 K/uL (4.8-10.8)
[2019-03-21 18:09] LABS: Albumin Level 1.6 gm/dl (3.4-5.0); BUN Creatinine Ratio 15.3 (10-20); Calcium 7.3 mg/dl (8.5-10.1); Creatinine Clr Calc Pharmacy 176.7 ml/min; Est GFR (Non-African American) 115.6; Magnesium 1.5 mg/dl (1.8-2.4); Potassium 3.4 mmol/L (3.5-5.1)
[2019-03-21 18:16] LABS: Albumin Globulin Ratio 0.4 (0.9-2); Bilirubin,Total 12.3 mg/dl (0.2-1); Globulin 4.2 gm/dl (2.5-4.0); Total Protein 5.8 gm/dl (6.4-8.2)
[2019-03-21 18:21] LABS: Platelet Count 71 K/uL (130-400)
[2019-03-21 18:22] LABS: Basophils # (auto) 0.02 K/uL (0-0.2); Basophils % (auto) 0.3 %; Echinocytes 1+; Eosinophils # (auto) 0.22 K/uL (0-0.5); Eosinophils % (auto) 3.7 %; Immature Granulocytes # (auto) 0.04 K/uL (0.00-0.02); Immature Granulocytes % (auto) 0.7 %; Lymphocytes # (auto) 0.94 K/uL (1.2-3.4); Lymphocytes % (auto) 15.7 %; Monocytes # (auto) 0.65 K/uL (0.11-0.59); Monocytes % (auto) 10.9 %; Neutrophils # (auto) 4.12 K/uL (1.4-6.5); Neutrophils % (auto) 68.7 %; Platelet Estimate Decreased (Normal); Poikilocytosis Present
--- NOTE | 2019-03-21 20:39 | History & Physical Report ---
Date of Service March 21, 2019 Assessment & Plan (1) Hyponatremia: 53 yo M with PMH cirrhosis secondary to hemochromatosis presents with complaints of abd distention and acute confusion after stopping diuretic medication found to have Na 122 on admission. Hyponatremia -likely 2/2 hypotonic hypervolemia - Na 122 on admit, pt has not been taking his home diuretics -likely secondary to cirrhosis -given IV 25% Albumin/Lasix 40 mg x1 in ED -will restart home continue spironolactone 100 mg qAM, furosemide 40 mg qAM -Urine/Serum Osm studies pending -daily BMP Confusion -pt with mild confusion on admit. Was A&Ox3, but just took longer than usual to answer questions -likely 2/2 hypoNa and not aspect of hepatic encephalopathy given normal Ammonia levels on admit -cont monitor ESLD/Cirrhosis due to hemochromatosis -T bili 12.3 on admit -MELD score on admit: 30 --> 52.6% Estimated 3-Month Mortality -pt follows with Hepatology at [facility] and is being evaluated for liver transplant -UTD on HCC screening -?consider palliative consultation once mental status improves Portal HTN -restarting diuretics as above -continue home nadolol 20mg daily -Feb 2019 EGD with portal gastropathy noted but no esophageal varices Anemia -Hgb 8.3 on admit. Stable, baseline ~7-9 -no concerns for bleeding -Feb 2019 EGD/Colonoscopy showed no no active bleeding -Daily CBC Thrombocytopenia - Plt 71 on admission- stable -Secondary to cirrhosis Hyperbilirubinemia -secondary to cirrhosis Hypomagnesemia -Continue home PO 400 mg BID -1 g IV MgSO4 given in ER. Cont supplement as needed Diet: Regular consistency diet DVT Prophylaxis: IRINA's, no chemical anticoagulation at this time Full Code Dispo: med surg with tele. From home, lives with mother and father. PT/OT pending. History of Present Illness Chief Complaint: Abd Distention, Confusion Primary Care Provider: Dom Benton 53 yo M with PMH cirrhosis secondary to heterozygous hemochromatosis and alcohol abuse history presents to [facility] with complaints of abd distention and acute confusion that started the morning prior to admission. Of note, pt has been hospitalized multiple times in the past few months for issues surrounding his ESLD. Pt's mother provides most of history and is reliable historian. She notes that confusion is not as bad as it was like in Feb 2019 admission for hepatic encephalopathy, but they wanted to be preemptive. Mother states that pt has had some difficulty with ADL since yesterday morning, such as putting clothes on, which pt would normally do himself and this caused her concern. Pt was instructed by [facility] physicians in [place] (where they are working to get him on Liver Transplant List) ~1 week ago to 'stop taking Lasix due to concerns of low sodium.' Pt has been compliant with all other medications otherwise. Pt denies any other symptoms of CP, SOB, syncope, LH, dizziness, abd pain, F/N/V/D. Pt and mother with no other acute concerns or complaints. No significant ER course. Pertinent Labs: Hgb 8.3, Plt 71, Na 122, K 3.4, Ca 7.3, Mg 1.5, T bili 12.3, Alk Phos 203, Albumin 1.6, Ammonia WNL Family Hx: No pertinent family history in first degree relatives Social: Pt denies tobacco, alcohol, other illicit drug use. Was former heavy alcohol user 'back in college'. Surgical: History of appendectomy, tonsillectomy, vasectomy, wisdom teeth Allergies Allergy/AdvReac Type Severity Reaction Status Date / Time No Known Allergies Allergy Verified 03/21/19 17:47 Home Medications Home Medications Medication Instructions Recorded Confirmed Type ergocalciferol (vitamin D2) 50,000 unit PO SA 01/26/19 03/21/19 History [Vitamin D2] furosemide 40 mg PO QAM 01/26/19 03/21/19 History magnesium oxide 400 mg PO BID 01/26/19 03/21/19 History omeprazole 20 mg PO QAM 01/26/19 03/21/19 History spironolactone 100 mg PO QAM 01/26/19 03/21/19 History zinc 50 mg PO BID 01/26/19 03/21/19 History nadolol 20 mg PO DAILY 02/26/19 03/21/19 History lactulose 30 ml PO QID #0 ml 02/28/19 03/21/19 Rx rifaximin [Xifaxan] 550 mg PO BID #60 tab 02/28/19 03/21/19 Rx metoprolol succinate 25 mg PO DAILY 03/21/19 03/21/19 History Past Med/Surg History Medical History Cardiac murmur 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 TAN History of high cholesterol Restless leg syndrome Surgical History History of appendectomy History of colonoscopy History of esophagogastroduodenoscopy (EGD) History of tonsillectomy Hx of LASIK Hx of vasectomy [place] teeth removed Family History Other No pertinent family history in first degree relatives Social History Preferred Language: Chilean Communication Ability: Effective Shaper Setter Required: No Beliefs That Will Affect Care: None marital status: Single marital status details: 3 sons Current Living Situation: Parent Current Living Situation Comment: mom current occupation: retired Other Information That Helps Us Care for You: No Feels Safe at Home: Yes Safety Concerns: Feels Safe At This Time Smoking Status: Never smoker Tobacco Type: smokeless tobacco ; Do You Dip or Chew Tobacco: No ; Second Hand Exposure: No ; Tobacco Cessation Education Requested by Patient: No Hx Alcohol Use: No (former drinker) Hx Substance Use: No Review of Systems Review of Systems: All systems reviewed & are unremarkable except as noted in HPI & below Physical Exam Constitutional: WD/WN, vitals as above Eyes: + scleral abnormality (icterus) ENMT: external ear and nose normal, oropharynx normal Respiratory: normal respiratory effort, lungs clear to auscultation Cardiovascular: RRR, no murmur, no edema Extremities: + edema (+1 LE edema) Gastrointestinal (Abdomen): normal bowel sounds, soft, nontender, no hepatosplenomegaly abdominal venous patterns Skin: + jaundice Psychiatric: A+Ox3, euthymic affect mildly slowed speech Results & Data Vital Signs (Past 12 Hours) Vital Signs Temp Pulse Resp BP Pulse Ox 03/21/19 20:01 80 18 100 03/21/19 20:00 76 20 112/76 99 03/21/19 19:49 86 19 121/66 03/21/19 19:30 15 03/21/19 19:01 71 17 98 03/21/19 19:00 73 20 113/66 03/21/19 18:31 66 23 99 03/21/19 18:30 66 17 116/67 99 03/21/19 18:18 68 20 99 03/21/19 18:14 67 18 107/69 97 03/21/19 17:19 37.0 C 69 20 115/73 99 Laboratory Results Laboratory Results - last 24 hr 03/21/19 03/21/19 03/21/19 17:42 17:42 17:42 WBC 5.99 RBC 2.93 L Hgb 8.3 L Hct 25.0 L MCV 85.3 MCH 28.3 MCHC 33.2 RDW Std Deviation 58.6 H RDW Coeff of Joey 19.0 H Plt Count 71 L Immature Gran % (Auto) 0.7 Neut % (Auto) 68.7 Lymph % (Auto) 15.7 Early % (Auto) 10.9 Eos % (Auto) 3.7 Baso % (Auto) 0.3 Immature Gran # (Auto) 0.04 H Neut # (Auto) 4.12 Lymph # (Auto) 0.94 L Early # (Auto) 0.65 H Eos # (Auto) 0.22 Baso # (Auto) 0.02 Platelet Estimate Decreased L Poikilocytosis Present Echinocytes 1+ Sodium 122 L Potassium 3.4 L Chloride 93 L Carbon Dioxide 22 Anion Gap 8.0 BUN 9 Creatinine 0.60 Est Cr Clr Drug Dosing 176.7 Est GFR ( Amer) 134.0 Est GFR (Non-Af Amer) 115.6 BUN/Creatinine Ratio 15.3 Glucose 94 Osmolality Calcium 7.3 L Magnesium 1.5 L Total Bilirubin 12.3 H AST 73 H ALT 39 Alkaline Phosphatase 203 H Ammonia 26.7 Total Protein 5.8 L Albumin 1.6 L Globulin 4.2 H Albumin/Globulin Ratio 0.4 L Lipase 323 03/21/19 17:42 WBC RBC Hgb Hct MCV MCH MCHC RDW Std Deviation RDW Coeff of Joey Plt Count Immature Gran % (Auto) Neut % (Auto) Lymph % (Auto) Early % (Auto) Eos % (Auto) Baso % (Auto) Immature Gran # (Auto) Neut # (Auto) Lymph # (Auto) Early # (Auto) Eos # (Auto) Baso # (Auto) Platelet Estimate Poikilocytosis Echinocytes Sodium Potassium Chloride Carbon Dioxide Anion Gap BUN Creatinine Est Cr Clr Drug Dosing Est GFR ( Amer) Est GFR (Non-Af Amer) BUN/Creatinine Ratio Glucose Osmolality 249 L Calcium Magnesium Total Bilirubin AST ALT Alkaline Phosphatase Ammonia Total Protein Albumin Globulin Albumin/Globulin Ratio Lipase Code Status & VTE Plan Code Status FULL Supervising Physician Co-Signing Physician Notes Attending addendum: I have physically seen this patient, have supervised the medical residents activities, and agree with the H&P unless as otherwise noted. Assessment and Plan: Hyponatremia with hypo-osmolality- Sodium 122, serum osmolality 249. Magnesium 1.5, albumin 1.6. Secondary to Lasix being discontinued at his [place] appointment. Resume Lasix at 40 mg IV twice daily with albumin 25 g IV. Potassium chloride 40 mEq p.o. twice daily. Follow serial BMP, magnesium, serum osmolality and LFTs. Cirrhosis/hemochromatosis/portal hypertension/hyperbilirubinemia- Follows with hepatology at [facility] in [place]. Remaining orders and notations as noted. Resident Activity Tracking Resident Involvement: Resident Care Provided Care Provided: Adult Hospital Medicine
[2019-03-21 21:52] LABS: Prothrombin Time 19.6 Seconds (9.0-12.0)
[2019-03-21] MEDS ORDERED: MAGNESIUM SULFATE / D5W 1 GM/100 ML BAG IV ONE (22:00)
--- NOTE | 2019-03-21 23:11 | Emergency Department Note ---
Entered by Deb Warner acting as a scribe for Toro El DO History of Present Illness General Chief complaint: Illness Stated complaint: DIZZY, LIGHTHEADED, BLOATED Time Seen by Provider: 03/21/19 17:24 Source: patient and family (mother) History of Present Illness Onset (ago): day(s) 1 Location: head (confusion ) Severity: similar to prior episodes (prior episode due to ammonia levels ) Pain Consistency: + constant Maximum Pain Intensity: 0 Associated symptoms: + denies other symptoms (change in vision, abdominal pain, dysuria), + confusion (trouble with general daily tasks (getting dressed)) and + other (worsening jaundice 1 day ago, 2-3 episodes diarrhea per day); no chest pain, no headaches, no nausea/vomiting and no shortness of breath The patient is a 53 year old male with a history 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 The patient's mother reports that she noticed the patient becoming confused 1 day ago. He currently knows his name, location, and what year it is. She explains that he has been having trouble with general daily tasks including getting dressed on his own. Mother explains that he has experienced similar confusion in the past which was due to his ammonia levels. She admits that she did not call the patient's GI doctor when the confusion began yesterday. The mother also reports that she noticed recent worsening jaundice 1 day ago as well as 2-3 episodes of diarrhea per day. She states that he needs a liver transplant but is not on the list yet due to paperwork taking time. Of note, he recently stopped taking Lasix and has been taking all other prescribed medications accordingly with the exception of taking 2 lactulose doses today instead of the recommended 4. He denies headache, change in vision, chest pain, shortness of breath, nausea, vomiting, abdominal pain, and dysuria. The patient and his mother offer no further concerns at this time. Home Medications Home Medications Medication Instructions Recorded Confirmed Type ergocalciferol (vitamin D2) 50,000 unit PO SA 01/26/19 03/21/19 History [Vitamin D2] furosemide 40 mg PO QAM 01/26/19 03/21/19 History magnesium oxide 400 mg PO BID 01/26/19 03/21/19 History omeprazole 20 mg PO QAM 01/26/19 03/21/19 History spironolactone 100 mg PO QAM 01/26/19 03/21/19 History zinc 50 mg PO BID 01/26/19 03/21/19 History nadolol 20 mg PO DAILY 02/26/19 03/21/19 History lactulose 30 ml PO QID #0 ml 02/28/19 03/21/19 Rx rifaximin [Xifaxan] 550 mg PO BID #60 tab 02/28/19 03/21/19 Rx metoprolol succinate 25 mg PO DAILY 03/21/19 03/21/19 History Allergies Allergy/AdvReac Type Severity Reaction Status Date / Time No Known Allergies Allergy Verified 03/21/19 17:47 Past Med/Surg History Medical History Cardiac murmur 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 TAN History of high cholesterol Restless leg syndrome Surgical History History of appendectomy History of colonoscopy History of esophagogastroduodenoscopy (EGD) History of tonsillectomy Hx of LASIK Hx of vasectomy [place] teeth removed Family History Other No pertinent family history in first degree relatives Social History Preferred Language: Yoruba Communication Ability: Impaired Vault Teller Required: No Beliefs That Will Affect Care: None marital status: marital status details: 3 sons Current Living Situation: Parent Current Living Situation Comment: mom current occupation: retired Feels Safe at Home: Yes Smoking Status: Never smoker Tobacco Type: smokeless tobacco ; Second Hand Exposure: No ; Hx Alcohol Use: No (Denies alcoholism) Hx Substance Use: No Review of Systems See HPI for pertinent positives & negatives. and A total of 10 systems reviewed and were otherwise negative Physical Exam Vital Signs Vital Signs - 24 hr 03/21/19 17:19 03/21/19 18:14 03/21/19 18:18 Temperature 37.0 C Temperature Source Oral Pulse Rate 69 67 68 Pulse Rate from SpO2 Sensor 68 68 Respiratory Rate 20 18 20 Respiratory Effort / Characteristics Non-Labored Respiratory Depth Normal Respiratory Pattern Regular Blood Pressure 115/73 107/69 Blood Pressure Mean 87 74 Blood Pressure Position Sitting Pulse Oximetry 99 97 99 Oxygen Delivery Method Room Air Sepsis Recent Fever Within 48 Hours No Sepsis New/Unexplained Change in Mental Status No Sepsis Action Taken by Nursing No Action Required 03/21/19 18:30 03/21/19 18:31 03/21/19 19:00 Temperature Temperature Source Pulse Rate 66 66 73 Pulse Rate from SpO2 Sensor 67 66 Respiratory Rate 17 23 20 Respiratory Effort / Characteristics Respiratory Depth Respiratory Pattern Blood Pressure 116/67 113/66 Blood Pressure Mean 84 75 Blood Pressure Position Pulse Oximetry 99 99 Oxygen Delivery Method Sepsis Recent Fever Within 48 Hours Sepsis New/Unexplained Change in Mental Status Sepsis Action Taken by Nursing 03/21/19 19:01 03/21/19 19:30 03/21/19 19:49 Temperature Temperature Source Pulse Rate 71 86 Pulse Rate from SpO2 Sensor 70 Respiratory Rate 17 15 19 Respiratory Effort / Characteristics Respiratory Depth Respiratory Pattern Blood Pressure 121/66 Blood Pressure Mean 87 Blood Pressure Position Pulse Oximetry 98 Oxygen Delivery Method Sepsis Recent Fever Within 48 Hours Sepsis New/Unexplained Change in Mental Status Sepsis Action Taken by Nursing 03/21/19 20:00 03/21/19 20:01 03/21/19 20:30 Temperature Temperature Source Pulse Rate 76 80 72 Pulse Rate from SpO2 Sensor 79 81 77 Respiratory Rate 20 18 19 Respiratory Effort / Characteristics Respiratory Depth Respiratory Pattern Blood Pressure 112/76 129/69 Blood Pressure Mean 82 83 Blood Pressure Position Pulse Oximetry 99 100 93 Oxygen Delivery Method Sepsis Recent Fever Within 48 Hours Sepsis New/Unexplained Change in Mental Status Sepsis Action Taken by Nursing 03/21/19 20:31 03/21/19 21:00 03/21/19 21:01 Temperature Temperature Source Pulse Rate 76 79 78 Pulse Rate from SpO2 Sensor 77 79 77 Respiratory Rate 20 19 21 Respiratory Effort / Characteristics Respiratory Depth Respiratory Pattern Blood Pressure 123/72 Blood Pressure Mean 86 Blood Pressure Position Pulse Oximetry 98 95 98 Oxygen Delivery Method Sepsis Recent Fever Within 48 Hours Sepsis New/Unexplained Change in Mental Status Sepsis Action Taken by Nursing 03/21/19 23:01 Temperature Temperature Source Pulse Rate 77 Pulse Rate from SpO2 Sensor Respiratory Rate 18 Respiratory Effort / Characteristics Respiratory Depth Respiratory Pattern Blood Pressure 120/62 Blood Pressure Mean Blood Pressure Position Pulse Oximetry 95 Oxygen Delivery Method Room Air Sepsis Recent Fever Within 48 Hours Sepsis New/Unexplained Change in Mental Status Sepsis Action Taken by Nursing GENERAL: alert, chronically ill, disheveled,no distress, non-toxic EYE EXAM: scleral icterus, PERRL and EOM's grossly intact OROPHARYNX: no exudate, no erythema, lips, buccal mucosa, and tongue normal and mucous membranes are moist NECK: supple, no nuchal rigidity, no adenopathy, non-tender LUNGS: Clear to auscultation. Normal chest wall mechanics HEART: no murmurs, S1 normal and S2 normal ABDOMEN: abdomen distended, non-tender, normo-active bowel sounds, no masses, no rebound or guarding. BACK: Back is symmetrical on inspection and there is no deformity, no midline tenderness, no CVA tenderness. SKIN: no rashes and no bruising UPPER EXTREMITIES: upper extremities are grossly normal. LOWER EXTREMITIES: No pitting edema. NEURO EXAM: Normal sensorium, oriented to person, place, and time, no asterixis, cranial nerves II-XII grossly intact, normal speech, no gross weakness of arms, no gross weakness of legs. Course Course ED COURSE: Vital signs were reviewed and showed hypotension. The patients medical record was reviewed The above diagnostic studies were performed and reviewed. ED treatments and interventions as stated above. 1730: The patient was evaluated in room C05. A complete history and physical ex amination was performed. 182: Upon reevaluation, the patient is resting.I discussed my findings with the patient and he understands and agrees with the treatment plan. Based on the patients age, coexisting illnesses, exam and lab findings the decision to treat as an inpatient was made. The patient remained stable while under my care. The patient will be evaluated for further management by Dr. Jenkins. Administered Medications Discontinued Medications Magnesium Sulfate/Dextrose (Magnesium Sulfate / D5w) 1 gm in 100 mls @ 100 mls/hr IV ONE ONE Stop: 03/21/19 22:59 Last Admin: 03/21/19 22:19 Dose: 100 mls/hr Documented by: [id number] Medical Decision Making Differential Diagnosis Differential diagnoses includes but is not limited to toxic, metabolic, infectious, traumatic, cardiac, neurologic, hematologic, psychiatric and inflammatory etiologies. Medical Records Attestation: I reviewed the patient's medical records. Home Medications Current Medication List: was personally reviewed by me Laboratory Data Attestation: I reviewed the patient's lab results. Result diagrams: 03/21/19 17:42 03/21/19 17:42 Lab Results 03/21/19 03/21/19 03/21/19 Range/Units 17:42 17:42 17:42 WBC 5.99 (4.8-10.8) K/uL RBC 2.93 L (4.7-6.1) M/uL Hgb 8.3 L (14.0-18.0) g/dL Hct 25.0 L (42-52) % MCV 85.3 (80-100) fL MCH 28.3 (25-34) pg MCHC 33.2 (32-36) g/dL RDW Std Deviation 58.6 H (36.4-46.3) fL RDW Coeff of Joey 19.0 H (11.5-14.5) % Plt Count 71 L (130-400) K/uL Immature Gran % (Auto) 0.7 % Neut % (Auto) 68.7 % Lymph % (Auto) 15.7 % [place] % (Auto) 10.9 % Eos % (Auto) 3.7 % Baso % (Auto) 0.3 % Immature Gran # (Auto) 0.04 H (0.00-0.02) K/uL Neut # (Auto) 4.12 (1.4-6.5) K/uL Lymph # (Auto) 0.94 L (1.2-3.4) K/uL Cascade # (Auto) 0.65 H (0.11-0.59) K/uL Eos # (Auto) 0.22 (0-0.5) K/uL Baso # (Auto) 0.02 (0-0.2) K/uL Platelet Estimate Decreased L (Normal) Poikilocytosis Present Echinocytes 1+ PT (9.0-12.0) Seconds INR (0.9-1.1) Sodium 122 L (136-145) mmol/L Potassium 3.4 L (3.5-5.1) mmol/L Chloride 93 L (98-107) mmol/L Carbon Dioxide 22 (21-32) mmol/L Anion Gap 8.0 (3-11) BUN 9 (7-18) mg/dl Creatinine 0.60 (0.6-1.4) mg/dl Est Cr Clr Drug Dosing 176.7 ml/min Est GFR ( Amer) 134.0 Est GFR (Non-Af Amer) 115.6 BUN/Creatinine Ratio 15.3 (10-20) Glucose 94 (70-99) mg/dl Osmolality (280-300) mOsm/kg Calcium 7.3 L (8.5-10.1) mg/dl Magnesium 1.5 L (1.8-2.4) mg/dl Total Bilirubin 12.3 H (0.2-1) mg/dl AST 73 H (15-37) U/L ALT 39 (12-78) U/L Alkaline Phosphatase 203 H (45-117) U/L Ammonia 26.7 (11-32) umol/L Total Protein 5.8 L (6.4-8.2) gm/dl Albumin 1.6 L (3.4-5.0) gm/dl Globulin 4.2 H (2.5-4.0) gm/dl Albumin/Globulin Ratio 0.4 L (0.9-2) Lipase 323 (73-393) U/L 03/21/19 03/21/19 Range/Units 17:42 17:42 WBC (4.8-10.8) K/uL RBC (4.7-6.1) M/uL Hgb (14.0-18.0) g/dL Hct (42-52) % MCV (80-100) fL MCH (25-34) pg MCHC (32-36) g/dL RDW Std Deviation (36.4-46.3) fL RDW Coeff of Joey (11.5-14.5) % Plt Count (130-400) K/uL Immature Gran % (Auto) % Neut % (Auto) % Lymph % (Auto) % [place] % (Auto) % Eos % (Auto) % Baso % (Auto) % Immature Gran # (Auto) (0.00-0.02) K/uL Neut # (Auto) (1.4-6.5) K/uL Lymph # (Auto) (1.2-3.4) K/uL Cascade # (Auto) (0.11-0.59) K/uL Eos # (Auto) (0-0.5) K/uL Baso # (Auto) (0-0.2) K/uL Platelet Estimate (Normal) Poikilocytosis Echinocytes PT 19.6 H (9.0-12.0) Seconds INR 2.0 H (0.9-1.1) Sodium (136-145) mmol/L Potassium (3.5-5.1) mmol/L Chloride (98-107) mmol/L Carbon Dioxide (21-32) mmol/L Anion Gap (3-11) BUN (7-18) mg/dl Creatinine (0.6-1.4) mg/dl Est Cr Clr Drug Dosing ml/min Est GFR ( Amer) Est GFR (Non-Af Amer) BUN/Creatinine Ratio (10-20) Glucose (70-99) mg/dl Osmolality 249 L (280-300) mOsm/kg Calcium (8.5-10.1) mg/dl Magnesium (1.8-2.4) mg/dl Total Bilirubin (0.2-1) mg/dl AST (15-37) U/L ALT (12-78) U/L Alkaline Phosphatase (45-117) U/L Ammonia (11-32) umol/L Total Protein (6.4-8.2) gm/dl Albumin (3.4-5.0) gm/dl Globulin (2.5-4.0) gm/dl Albumin/Globulin Ratio (0.9-2) Lipase (73-393) U/L Blood Pressure Blood Pressure Findings: Low blood pressure Blood Pressure Disposition: did not require urgent referral MDM Narrative Patient is a 53-year-old male with a past medical history of hemochromatosis and liver failure following with the transplant team that presents the ER for confusion per mom associated with abdominal distention. They recently stopped his Lasix per transplant team. On exam patient has pitting edema and ascites. IV was established blood work was obtained and showed a hemoglobin 8.3. INR therapeutic at 2. Sodium of 122. Potassium slightly low 3.4. Bilirubin consistent with previous at 12. No significant transaminitis. Lipase u nremarkable. He had no other complaints. He is completely neurologically intact and oriented to person place or time. Updated the family and hospitalist. Who will be admitted for further work-up. Impression & Plan Hyponatremia, Elevated bilirubin, Hemochromatosis, Anemia, Hyperbilirubinemia, Cirrhosis Discharge Plan Visit Data Chief Complaint: Illness Stated Complaint: DIZZY, LIGHTHEADED, BLOATED ED Provider: Toro El Discharge Problem: Hyponatremia, Elevated bilirubin, Hemochromatosis, Anemia, Hyperbilirubinemia, Cirrhosis Patient Disposition: Being Evaluated by Hospitalist Discharge Instructions Interventions: ED Discharge Assessment Last Done: 03/21/19 23:01 Forms Stand Alone Forms: My [facility] Prescriptions Prescriptions: No Action nadolol 20 mg tablet 20 mg PO DAILY RF: 0 Xifaxan 550 mg Tablet 550 mg PO BID Qty: 60 RF: 0 lactulose 10 gram/15 mL solution 30 ml PO QID Qty: 0 RF: 0 ergocalciferol (vitamin D2) [Vitamin D2] 50,000 unit capsule 50,000 unit PO SA RF: 0 magnesium oxide 400 mg (241.3 mg magnesium) tablet 400 mg PO BID RF: 0 spironolactone 100 mg tablet 100 mg PO QAM RF: 0 omeprazole 20 mg Capsule,Delayed Release(Dr/Ec) 20 mg PO QAM RF: 0 zinc 50 mg Tablet 50 mg PO BID RF: 0 furosemide 20 mg Tablet 40 mg PO QAM RF: 0 metoprolol succinate 25 mg tablet extended release 24 hr 25 mg PO DAILY RF: 0 Referrals Referrals: Dom Benton [Primary Care Provider] - Discharge Problem: Hemochromatosis Qualifiers: Hemochromatosis type: unspecified Qualified Code(s): E83.119 - Hemochromatosis, unspecified Anemia Qualifiers: Anemia type: unspecified type Qualified Code(s): D64.9 - Anemia, unspecified Cirrhosis Qualifiers: Hepatic cirrhosis type: unspecified hepatic cirrhosis Ascites presence: unspecified Qualified Code(s): K74.60 - Unspecified cirrhosis of liver The toniaibe's documentation has been prepared under my direction and personally reviewed by me in its entirety. I confirm that the note above accurately reflects all work, treatment, procedures, and medical decision making performed by me.
[2019-03-21] MEDS ORDERED: ALBUMIN 25% 50 ML with FUROSEMIDE 40 MG IV ONE (23:38)
[2019-03-21] MEDS ORDERED: ALUMINUM/MAGNESIUM SUSP 30 ML UDC PO PRN ×2 (23:38)
[2019-03-21] MEDS ORDERED: ONDANSETRON INJ 2 MG/ML 2 ML VIAL IV PRN ×2 (23:38)
[2019-03-21] MEDS ORDERED: ACETAMINOPHEN 325 MG TAB PO PRN ×2 (23:38)
[2019-03-22 03:41] LABS: Appearance Urine Clear (Clear); Bilirubin Urine Negative (Negative); Blood Urine Negative (Negative); Color Urine Yellow; Glucose Urine UA Negative (Negative); Ketones Urine Negative (Negative); Leukocyte Esterase Urine Negative (Negative); Nitrite Urine Negative (Negative); Protein Urine Negative (Negative); Specific Gravity Urine 1.007 (1.000-1.030); Urobilinogen Urine Negative (Negative); pH Urine 7.5 (4.5-7.5)
[2019-03-22 07:11] LABS: Mean Corpuscular Hgb Conc 33.3 g/dL (32-36)
[2019-03-22 07:40] LABS: Hematocrit (blood only) 24.6 % (42-52); Hemoglobin 8.2 g/dL (14.0-18.0); Mean Corpuscular Hemoglobin 28.5 pg (25-34); Mean Corpuscular Volume 85.4 fL (80-100); RDW Coefficient of Variation 18.9 % (11.5-14.5); RDW Standard Deviation 57.9 fL (36.4-46.3); Red Blood Count 2.88 M/uL (4.7-6.1); White Blood Count 4.85 K/uL (4.8-10.8)
[2019-03-22 07:41] LABS: Anisocytosis Present; Basophils # (auto) 0.02 K/uL (0-0.2); Basophils % (auto) 0.4 %; Eosinophils % (auto) 4.1 %; Immature Granulocytes # (auto) 0.02 K/uL (0.00-0.02); Immature Granulocytes % (auto) 0.4 %; Lymphocytes # (auto) 0.96 K/uL (1.2-3.4); Lymphocytes % (auto) 19.8 %; Monocytes # (auto) 0.35 K/uL (0.11-0.59); Monocytes % (auto) 7.2 %; Neutrophils % (auto) 68.1 %; Platelet Count 59 K/uL (130-400); Platelet Estimate Decreased (Normal); Poikilocytosis Present
[2019-03-22 07:49] LABS: Albumin Globulin Ratio 0.4 (0.9-2); Albumin Level 1.7 gm/dl (3.4-5.0); BUN Creatinine Ratio 15.7 (10-20); Bilirubin,Total 13.3 mg/dl (0.2-1); Calcium 7.4 mg/dl (8.5-10.1); Creatinine Clr Calc Pharmacy 171.9 ml/min; Est GFR (African American) 134.9; Est GFR (Non-African American) 116.4; Globulin 3.9 gm/dl (2.5-4.0); Potassium 3.5 mmol/L (3.5-5.1); Total Protein 5.6 gm/dl (6.4-8.2)
[2019-03-22] MEDS: SPIRONOLACTONE 100 MG TAB PO SCH (08:12)
[2019-03-22] MEDS: nadoloL 40 MG TAB PO SCH (08:12)
[2019-03-22] MEDS: RIFAXIMIN 550 MG TABLET PO SCH ×2 (08:13→20:02)
[2019-03-22] MEDS: METOPROLOL SUCC 25MG EXT REL TAB PO SCH (08:13)
[2019-03-22] MEDS: FUROSEMIDE 40 MG TAB PO SCH (08:13)
[2019-03-22] MEDS: LACTULOSE SYRUP 20 GM/30 ML UDC PO SCH ×4 (08:13→20:02)
[2019-03-22] MEDS: PANTOprazole 40 MG TAB PO SCH (08:13)
[2019-03-22] MEDS: MAGNESIUM OXIDE 400 MG TAB PO SCH ×2 (08:13→20:02)
[2019-03-22] MEDS: ZINC SULFATE 220 MG CAPSULE PO SCH ×2 (08:14→20:04)
--- NOTE | 2019-03-22 09:24 | Hospitalist Progress Note ---
Date of Service March 22, 2019 Assessment & Plan (1) Hepatic encephalopathy: Confusion and jaundice were noted on initial ER documentation along with H&P. Although patient's liver enzymes continue to worsen, ammonia level is within normal limits and I suspect the patient's mental status is much improved from presentation. Patient took less lactulose than prescribed, may have played a part in the patient's decompensation. Rifaximin was added on admission and should be continued after discharge. He does seem to be improved today and is calm and eating breakfast on his own. We will continue to monitor another 24 hours and follow lab work. (2) Hyponatremia: Patient may have been fluid overloaded, again secondary to noncompliance with diuretics. He is now on his outpatient Lasix spironolactone. Will fluid restrict the patient. Monitor blood pressure, can infuse albumin as needed. Recheck in the morning. (3) Cirrhosis due to hemochromatosis: Continue other medications as ordered. Patient follows with [facility] and is working on liver transplantation. If patient continues to decompensate, we can consider transfer to their facility for further work-up but I believe the patient is stable of that he may improve be discharged in the next few days. (4) Portal hypertension: Patient is order nadolol which could be continued (5) Anemia: Patient's anemia is likely chronic, may be multifactorial due to multiple medical issues currently in play. Will recheck a CBC. Otherwise asymptomatic and does not require a transfusion at this time. Subjective Seen and examined. Patient is eating breakfast. Patient appears to be awake alert, answers questions slowly but appropriately. I does tell me he feels much better than from yesterday. I do see documentation the patient was confused and agitated yesterday. His lactulose is since been increased and his ammonia level on presentation was within normal limits. Specifically denies abdominal pain, chest pain, shortness of breath, or other symptoms at this time. Remains hyponatremic at 122 which is unchanged from presentation. Physical Exam Constitutional: cooperative; no acute distress Significantly jaundiced and icteric Neck: trachea midline, no thyromegaly Respiratory: normal respiratory effort Auscultation: lungs clear to auscultation bilaterally; no crackles, no rales, no rhonchi and no wheezes Cardiovascular: Rate/Rhythm: regular rate and regular rhythm Heart Sounds: normal S1 and normal S2 Gastrointestinal (Abdomen): Inspection/Auscultation: abdomen normal to inspection Percussion/Palpation: abdomen soft and + fluid wave; abdomen nontender, no guarding, abdomen not rigid and no hepatosplenomegaly Significant caput medusa noted Skin: no rashes, warm and dry Results & Data Vital Signs (Past 12 Hours) Vital Signs Temp Pulse Pulse Resp BP BP BP 03/22/19 07:18 36.7 C 86 19 116/60 03/22/19 04:00 36.7 C 81 16 112/65 03/21/19 23:05 36.7 C 77 89 24 123/83 03/21/19 23:01 77 18 120/62 Pulse Ox 03/22/19 07:18 100 03/22/19 04:00 100 03/21/19 23:05 95 03/21/19 23:01 95 PG Care Time/CCT Total # of Minutes Spent Total Time Spent with Patient: Total time spent is greater than 50% in coord ination of care (as documented) at patient's floor/unit and/or counseling patient: (1) Anemia Anemia type: unspecified type Qualified Code(s): D64.9 - Anemia, unspecified
--- NOTE | 2019-03-22 20:11 | Billing Data ---
Date of Service March 22, 2019 Coding Level of Care Code 19402 Initial Inpt Care Lvl 3
[2019-03-23 06:45] LABS: Mean Corpuscular Hgb Conc 32.6 g/dL (32-36)
[2019-03-23 07:01] LABS: Hematocrit (blood only) 22.1 % (42-52); Hemoglobin 7.2 g/dL (14.0-18.0); RDW Coefficient of Variation 19.3 % (11.5-14.5); RDW Standard Deviation 59.1 fL (36.4-46.3); Red Blood Count 2.57 M/uL (4.7-6.1); White Blood Count 3.61 K/uL (4.8-10.8)
[2019-03-23 07:11] LABS: Albumin Globulin Ratio 0.4 (0.9-2); Albumin Level 1.5 gm/dl (3.4-5.0); BUN Creatinine Ratio 12.9 (10-20); Bilirubin,Total 11.3 mg/dl (0.2-1); Calcium 7.4 mg/dl (8.5-10.1); Creatinine Clr Calc Pharmacy 142.8 ml/min; Est GFR (Non-African American) 107.9; Globulin 3.6 gm/dl (2.5-4.0); Magnesium 1.7 mg/dl (1.8-2.4); Platelet Count 52 K/uL (130-400); Potassium 3.4 mmol/L (3.5-5.1); Total Protein 5.1 gm/dl (6.4-8.2)
[2019-03-23 07:12] LABS: Anisocytosis Present; Basophils # (auto) 0.02 K/uL (0-0.2); Basophils % (auto) 0.6 %; Echinocytes 1+; Eosinophils # (auto) 0.14 K/uL (0-0.5); Eosinophils % (auto) 3.9 %; Immature Granulocytes # (auto) 0.02 K/uL (0.00-0.02); Immature Granulocytes % (auto) 0.6 %; Lymphocytes # (auto) 0.61 K/uL (1.2-3.4); Lymphocytes % (auto) 16.9 %; Monocytes % (auto) 16.6 %; Neutrophils # (auto) 2.22 K/uL (1.4-6.5); Neutrophils % (auto) 61.4 %; Platelet Estimate Decreased (Normal); Poikilocytosis Present
[2019-03-23] MEDS: ZINC SULFATE 220 MG CAPSULE PO SCH ×2 (07:45→20:20)
[2019-03-23] MEDS: RIFAXIMIN 550 MG TABLET PO SCH ×2 (07:45→20:20)
[2019-03-23] MEDS: MAGNESIUM OXIDE 400 MG TAB PO SCH ×2 (07:46→20:20)
[2019-03-23] MEDS: nadoloL 40 MG TAB PO SCH (07:46)
[2019-03-23] MEDS: PANTOprazole 40 MG TAB PO SCH (07:46)
[2019-03-23] MEDS: FUROSEMIDE 40 MG TAB PO SCH (07:47)
[2019-03-23] MEDS: SPIRONOLACTONE 100 MG TAB PO SCH (07:47)
[2019-03-23] MEDS: METOPROLOL SUCC 25MG EXT REL TAB PO SCH (07:47)
[2019-03-23] MEDS: LACTULOSE SYRUP 20 GM/30 ML UDC PO SCH ×4 (07:48→20:20)
[2019-03-23] MEDS ORDERED: MAGNESIUM SULFATE / D5W 1 GM/100 ML BAG IV ONE (09:00)
[2019-03-23 09:08] LABS: Ferritin 54.3 ng/ml (8-388)
[2019-03-23 09:19] LABS: Hematocrit (blood only) 22.7 % (42-52); Hemoglobin 7.4 g/dL (14.0-18.0)
[2019-03-23] MEDS: POTASSIUM CHLORIDE / WTR 10 MEQ/100 ML PLCT IV SCH ×2 (10:15→11:43)
--- NOTE | 2019-03-23 13:44 | Gastrointestinal Consultation ---
Date of Consultation March 23, 2019 Assessment & Plan (1) Alcoholic cirrhosis: 1. Decompensated alcoholic cirrhosis: 1. Continue diuretics (Lasix and Aldactone) 2. Recommend low salt, regular consistency diet. 3. Hepatic encephalopathy: 1. Agree with lactulose QID; titrate to 3-4 loose BMs daily 2. Continue Rifamixin 550 mg BID 4. Unsure of baseline mental status however mother present and states he is much better and basically back to baseline; no asterixis 5. Sodium improved; would trend either as inpt or outpt 6. Anemia baseline is 7-9; would continue to trend; transfuse PRN 7. Continue Nadolol 8. Continue PPI 9. Continue Mg replacement 10. Continue outpt f/u with [facility] for consideration of liver transplant 11. Strict ETOH avoidance; limit Tylenol < 2 gm daily if using 12. Daily weights (2) Hyponatremia: (3) Elevated bilirubin: (4) Cirrhosis due to hemochromatosis: (5) Acute alteration in mental status: (6) End-stage liver disease: (7) Thrombocytopenia: History of Present Illness Reason for Consultation: worsening anemia/ [id number], [id number]/ ALCO. CIRRHOS Attending Physician: Bipin Kenyon History of Present Illness Ms. Lam Ashraf is a 53-year-old male patient of Dom Benton who is followed in GI clinic by Dr. Porras for ETOH cirrhosis complicated by ascites, portal hypertensive gastropathy, hepatic encephalopathy, being worked-up to be listed for liver transplant (also an insurance issue). He is also heterozygous for hemochromatosis. He has had recurrent hospitalizations lately for encephalopathy; recent EGD February 13, 2019 with severe portal hypertensive gastropathy but no varices and colonoscopy in 02/19/[address] Bone for hematochezia showing excoriated internal hemorrhoids. HCC screening (-) as CT last month with no suspicious masses. For ascites he is maintained on furosemide 20 every morning, Spironolactone 100 every morning (though apparently Lasix had been on hold per [facility] due to hypontremia?). He's on Nadolol for PHG. For prevention of recurrence of hepatic encephalopathy he is prescribed lactulose 30 mg p.o. twice daily (though pt doesn't like it and suspect he is skipping doses); typically has 3-4 loose BMs daily; also Xifaxan 550 mg BID; also rx'd PO Mag along with PPI. He was brought to the ED 03/21 for altered mental status. His mother, who was with him at the bedside tells us that he was starting to get confused (though not as bad as his previous admissions) and she wanted to be 'pre-emptive). Ammonia found to be 26, sodium 122, k 3.4, Mg 1.7, T. bili 12.3; normal creatinine. Confusion felt to be more due to hypoNa. Today he is improved just about back to his baseline. He ate a full breakfast this AM (eggs, juice, toast). Na improved to 129; K remains 3.4. Plts remain low at 52. HGB baseline is 7-9; today is 7.4. No GIB (no melena, hematochezia, hematemesis). VS stable. He has not had any imaging this admission. His mother reports around early April is when they are hoping to get him listed for transplant. Denies abd pain, n/v, fever, heartburn. Last ETOH use "1/2 a beer on my birthday in November), no Tylenol use. Allergies Allergy/AdvReac Type Severity Reaction Status Date / Time No Known Allergies Allergy Verified 03/21/19 17:47 Home Medications Home Medications Medication Instructions Recorded Confirmed Type ergocalciferol (vitamin D2) 50,000 unit PO SA 01/26/19 03/21/19 History [Vitamin D2] furosemide 40 mg PO QAM 01/26/19 03/21/19 History magnesium oxide 400 mg PO BID 01/26/19 03/21/19 History omeprazole 20 mg PO QAM 01/26/19 03/21/19 History spironolactone 100 mg PO QAM 01/26/19 03/21/19 History zinc 50 mg PO BID 01/26/19 03/21/19 History nadolol 20 mg PO DAILY 02/26/19 03/21/19 History lactulose 30 ml PO QID #0 ml 02/28/19 03/21/19 Rx rifaximin [Xifaxan] 550 mg PO BID #60 tab 02/28/19 03/21/19 Rx metoprolol succinate 25 mg PO DAILY 03/21/19 03/21/19 History Patient History Medical History Cardiac murmur 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 Beliefs That Will Affect Care: None marital status: Single marital status details: 3 sons Current Living Situation: Parent Current Living Situation Comment: mom current occupation: retired Other Information That Helps Us Care for You: No Feels Safe at Home: Yes Safety Concerns: Feels Safe At This Time Smoking Status: Never smoker Tobacco Type: smokeless tobacco ; Do You Dip or Chew Tobacco: No ; Second Hand Exposure: No ; Tobacco Cessation Education Requested by Patient: No Hx Alcohol Use: No (former drinker) Hx Substance Use: No Review of Systems Constitutional: as per Subjective / HPI; no fever, no chills and no anorexia Eyes: + icterus Respiratory: no cough, no dyspnea and no wheezing Cardiovascular: no chest pain, no dyspnea and no edema Gastrointestinal: as per Subjective / HPI Genitourinary: no difficulty urinating and no hematuria Integumentary: no rash and no lesions + jaundice Neurologic: no falls and no syncope Hematologic / Lymphatic: no easy bleeding and no easy bruising Physical Exam Constitutional: + obese; no acute distress Eyes: + icterus Respiratory: normal respiratory effort, lungs clear to auscultation Cardiovascular: Rate/Rhythm: regular rate and regular rhythm Gastrointestinal (Abdomen): + dilated periumbilical veins (caput medusa?), mildly distended; nontender, normal BS Skin: + jaundice; no rashes and no lesions Neurologic: moves all extremities; no focal motor deficits speech is fluent; AAO x 3; no aserixis Results & Data Vital Signs (Past 12 Hours) Vital Signs Temp Pulse Pulse Pulse Resp BP BP 03/23/19 11:46 36.8 C 70 20 116/73 03/23/19 09:10 74 03/23/19 07:00 36.8 C 76 16 105/51 L 03/23/19 04:05 36.6 C 72 20 120/71 Pulse Ox 03/23/19 11:46 99 03/23/19 09:10 03/23/19 07:00 100 03/23/19 04:05 100 Laboratory Results 03/23/19 03/23/19 03/23/19 Range/Units 09:05 06:32 06:32 WBC (4.8-10.8) K/uL RBC (4.7-6.1) M/uL Hgb 7.4 L (14.0-18.0) g/dL Hct 22.7 L (42-52) % MCV (80-100) fL MCH (25-34) pg MCHC (32-36) g/dL RDW Std Deviation (36.4-46.3) fL RDW Coeff of Joey (11.5-14.5) % Plt Count (130-400) K/uL Immature Gran % (Auto) % Neut % (Auto) % Lymph % (Auto) % [place] % (Auto) % Eos % (Auto) % Baso % (Auto) % Immature Gran # (Auto) (0.00-0.02) K/uL Neut # (Auto) (1.4-6.5) K/uL Lymph # (Auto) (1.2-3.4) K/uL [place] # (Auto) (0.11-0.59) K/uL Eos # (Auto) (0-0.5) K/uL Baso # (Auto) (0-0.2) K/uL Platelet Estimate (Normal) Poikilocytosis Anisocytosis Echinocytes Sodium (136-145) mmol/L Potassium (3.5-5.1) mmol/L Chloride (98-107) mmol/L Carbon Dioxide (21-32) mmol/L Anion Gap (3-11) BUN (7-18) mg/dl Creatinine (0.6-1.4) mg/dl Est Cr Clr Drug Dosing ml/min Est GFR ( Amer) Est GFR (Non-Af Amer) BUN/Creatinine Ratio (10-20) Glucose (70-99) mg/dl Osmolality (280-300) mOsm/kg Calcium (8.5-10.1) mg/dl Magnesium (1.8-2.4) mg/dl Iron 84 (35-175) mcg/dl TIBC 260 (250-450) mcg/dl Ferritin 54.3 (8-388) ng/ml Total Bilirubin (0.2-1) mg/dl AST (15-37) U/L ALT (12-78) U/L Alkaline Phosphatase (45-117) U/L Ammonia 41.4 H (11-32) umol/L Total Protein (6.4-8.2) gm/dl Albumin (3.4-5.0) gm/dl Globulin (2.5-4.0) gm/dl Albumin/Globulin Ratio (0.9-2) 03/23/19 03/23/19 03/23/19 Range/Units 06:32 06:32 06:32 WBC 3.61 L (4.8-10.8) K/uL RBC 2.57 L (4.7-6.1) M/uL Hgb 7.2 L (14.0-18.0) g/dL Hct 22.1 L (42-52) % MCV 86.0 (80-100) fL MCH 28.0 (25-34) pg MCHC 32.6 (32-36) g/dL RDW Std Deviation 59.1 H (36.4-46.3) fL RDW Coeff of Joey 19.3 H (11.5-14.5) % Plt Count 52 L (130-400) K/uL Immature Gran % (Auto) 0.6 % Neut % (Auto) 61.4 % Lymph % (Auto) 16.9 % [place] % (Auto) 16.6 % Eos % (Auto) 3.9 % Baso % (Auto) 0.6 % Immature Gran # (Auto) 0.02 (0.00-0.02) K/uL Neut # (Auto) 2.22 (1.4-6.5) K/uL Lymph # (Auto) 0.61 L (1.2-3.4) K/uL [place] # (Auto) 0.60 H (0.11-0.59) K/uL Eos # (Auto) 0.14 (0-0.5) K/uL Baso # (Auto) 0.02 (0-0.2) K/uL Platelet Estimate Decreased L (Normal) Poikilocytosis Present Anisocytosis Present Echinocytes 1+ Sodium 129 L D (136-145) mmol/L Potassium 3.4 L (3.5-5.1) mmol/L Chloride 98 (98-107) mmol/L Carbon Dioxide 23 (21-32) mmol/L Anion Gap 7.0 (3-11) BUN 9 (7-18) mg/dl Creatinine 0.71 (0.6-1.4) mg/dl Est Cr Clr Drug Dosing 142.8 ml/min Est GFR ( Amer) 125.0 Est GFR (Non-Af Amer) 107.9 BUN/Creatinine Ratio 12.9 (10-20) Glucose 98 (70-99) mg/dl Osmolality 259 L (280-300) mOsm/kg Calcium 7.4 L (8.5-10.1) mg/dl Magnesium 1.7 L (1.8-2.4) mg/dl Iron (35-175) mcg/dl TIBC (250-450) mcg/dl Ferritin (8-388) ng/ml Total Bilirubin 11.3 H (0.2-1) mg/dl AST 69 H (15-37) U/L ALT 36 (12-78) U/L Alkaline Phosphatase 170 H (45-117) U/L Ammonia (11-32) umol/L Total Protein 5.1 L (6.4-8.2) gm/dl Albumin 1.5 L (3.4-5.0) gm/dl Globulin 3.6 (2.5-4.0) gm/dl Albumin/Globulin Ratio 0.4 L (0.9-2)
[2019-03-23] MEDS: prednisoLONE SYRUP 15 MG/5 ML BTL PO SCH (15:23)
--- NOTE | 2019-03-23 22:05 | Hospitalist Progress Note ---
Date of Service March 23, 2019 Assessment & Plan (1) Alcoholic cirrhosis: Appears patient has alcoholic cirrhosis. Patient is end stage and has elevated MELD over 30 and Maddrey score over 50. His mortality for next 3 months is 52%. Patient would also benefit from being placed on steroids. Started patient on prednisolone 40 mg PO daily. Patient will be placed on transplant list in April. (2) Hepatic encephalopathy: His confusion appears to have improved. He still speaks slowly, but his mother reports this is close to his baseline. Confusion and jaundice were noted on initial ER documentation along with H&P. Although patient's liver enzymes continue to worsen, ammonia level is within normal limits and I suspect the patient's mental status is much improved from presentation. Patient took less lactulose than prescribed, may have played a part in the patient's decompensation. Rifaximin was added on admission and should be continued after discharge. (3) Hyponatremia: Patient may have been fluid overloaded, again secondary to noncompliance with diuretics. He is now on his outpatient Lasix spironolactone. Will fluid restrict the patient. Monitor blood pressure, can infuse albumin as needed. Monitoring sodium. (4) Cirrhosis due to hemochromatosis: Continue other medications as ordered. Patient follows with [facility] and is working on liver transplantation. If patient continues to decompensate, we can consider transfer to their facility for further work-up but I believe the patient is stable of that he may improve be discharged in the next few days. (5) Portal hypertension: Patient is order nadolol which could be continued (6) Anemia: Patient's anemia is likely chronic, may be multifactorial due to multiple medical issues currently in play. Will recheck a CBC. Otherwise asymptomatic and does not require a transfusion at this time. Subjective Patient reports no significant new symptoms. Patient would like to be discharged. His mom is at bedside and is updated. Review of Systems Review of Systems: All systems reviewed & are unremarkable except as noted in HPI & below Physical Exam Physical Exam: Constitutional: cooperative; no acute distress Significantly jaundiced and icteric Neck: trachea midline, no thyromegaly Respiratory: normal respiratory effort Auscultation: lungs clear to auscultation bilaterally; no crackles, no rales, no rhonchi and no wheezes Cardiovascular: Rate/Rhythm: regular rate and regular rhythm Heart Sounds: normal S1 and normal S2 Gastrointestinal (Abdomen): Inspection/Auscultation: abdomen normal to inspection Percussion/Palpation: abdomen soft and + fluid wave; abdomen nontender, no guarding, abdomen not rigid and no hepatosplenomegaly Significant caput medusa noted Skin: no rashes, warm and dry Results & Data Vital Signs (Past 12 Hours) Vital Signs Temp Pulse Pulse Pulse Resp BP BP 03/23/19 19:03 36.9 C 73 17 127/74 03/23/19 16:06 74 03/23/19 15:58 36.8 C 72 20 110/61 03/23/19 15:41 03/23/19 11:46 36.8 C 70 20 116/73 Pulse Ox 03/23/19 19:03 100 03/23/19 16:06 03/23/19 15:58 100 03/23/19 15:41 100 03/23/19 11:46 99 PG Care Time/CCT Total # of Minutes Spent Total Time Spent with Patient: Total time spent is greater than 50% in coordination of care (as documented) at patient's floor/unit and/or counseling patient: (1) Anemia Anemia type: unspecified type Qualified Code(s): D64.9 - Anemia, unspecified
[2019-03-24 07:59] LABS: Mean Corpuscular Hgb Conc 33.5 g/dL (32-36)
[2019-03-24 08:11] LABS: Prothrombin Time 19.6 Seconds (9.0-12.0)
[2019-03-24 08:35] LABS: Hemoglobin 7.7 g/dL (14.0-18.0); Mean Corpuscular Hemoglobin 28.8 pg (25-34); Mean Corpuscular Volume 86.1 fL (80-100); RDW Coefficient of Variation 19.5 % (11.5-14.5); RDW Standard Deviation 60.3 fL (36.4-46.3); Red Blood Count 2.67 M/uL (4.7-6.1); White Blood Count 5.77 K/uL (4.8-10.8)
[2019-03-24 08:38] LABS: Platelet Count 57 K/uL (130-400)
[2019-03-24 08:39] LABS: Acanthocytes 1+; Anisocytosis Present; Echinocytes 1+; Eosinophils # (auto) 0.02 K/uL (0-0.5); Eosinophils % (auto) 0.3 %; Immature Granulocytes # (auto) 0.03 K/uL (0.00-0.02); Immature Granulocytes % (auto) 0.5 %; Lymphocytes # (auto) 0.53 K/uL (1.2-3.4); Lymphocytes % (auto) 9.2 %; Monocytes # (auto) 0.68 K/uL (0.11-0.59); Monocytes % (auto) 11.8 %; Neutrophils # (auto) 4.51 K/uL (1.4-6.5); Neutrophils % (auto) 78.2 %; Ovalocytes 1+; Platelet Estimate Decreased (Normal); Polychromasia 1+
[2019-03-24] MEDS: MAGNESIUM OXIDE 400 MG TAB PO SCH ×2 (08:40→20:30)
[2019-03-24] MEDS: nadoloL 40 MG TAB PO SCH (08:40)
[2019-03-24] MEDS: ZINC SULFATE 220 MG CAPSULE PO SCH ×2 (08:40→20:30)
[2019-03-24] MEDS: PANTOprazole 40 MG TAB PO SCH (08:40)
[2019-03-24] MEDS: LACTULOSE SYRUP 20 GM/30 ML UDC PO SCH ×4 (08:40→20:28)
[2019-03-24] MEDS: FUROSEMIDE 40 MG TAB PO SCH (08:40)
[2019-03-24] MEDS: RIFAXIMIN 550 MG TABLET PO SCH ×2 (08:40→20:30)
[2019-03-24] MEDS: SPIRONOLACTONE 100 MG TAB PO SCH (08:40)
[2019-03-24] MEDS: prednisoLONE SYRUP 15 MG/5 ML BTL PO SCH (08:41)
[2019-03-24] MEDS: METOPROLOL SUCC 25MG EXT REL TAB PO SCH (08:41)
[2019-03-24 08:48] LABS: BUN Creatinine Ratio 13.2 (10-20); Calcium 7.7 mg/dl (8.5-10.1); Creatinine Clr Calc Pharmacy 175.5 ml/min; Est GFR (Non-African American) 115.6; Magnesium 1.9 mg/dl (1.8-2.4); Phosphorus 2.6 mg/dl (2.5-4.9); Potassium 3.8 mmol/L (3.5-5.1)
--- NOTE | 2019-03-24 11:25 | Gastroenterology Progress Note ---
Date of Service March 24, 2019 Assessment & Plan (1) Alcoholic cirrhosis: 1. Decompensated alcoholic cirrhosis: 1. Continue diuretics (Lasix and Aldactone) 2. Recommend low salt, regular consistency diet. 3. Hepatic encephalopathy: 1. Continue Lactulose QID; titrate to 3-4 loose BMs daily 2. Continue Rifamixin 550 mg BID 4. Mental status appears essentially back to baseline; no asterixis 5. Sodium improved; would trend either as inpt or outpt 6. Anemia is stable; baseline is 7-9; would continue to trend; transfuse PRN 7. Continue Nadolol 8. Continue PPI 9. Continue Mg replacement 10. Continue outpt f/u with [facility] for consideration of liver transplant 11. Strict ETOH avoidance; limit Tylenol < 2 gm daily if using 12. Daily weights (2) Hyponatremia: (3) Elevated bilirubin: (4) Cirrhosis due to hemochromatosis: (5) Acute alteration in mental status: (6) End-stage liver disease: (7) Thrombocytopenia: Subjective Pt seen and examined. He's eating breakfast. Remains awake, alert, answers questions slowly but appropriately. He states he continues to feel well. Mother is present and agrees he's back to near his baseline. Encephalopathy felt more to do with Na level than hep enceph as ammonia level was not significantly elevated. Continues on lactulose, Xifaxan, diuretics, potassium. Pt states bowels are moving regularly; tolerating Lactulose. Denies melena, hematochezia. Denies abdominal pain, chest pain, shortness of breath, or other symptoms at this time. Hyponatremia improved to 128/129 since admission (122). K improved; LFTs bilirubin remain stable yet elevated; tcytopenia is stable. INR 2.0. Review of Systems Constitutional: as per Subjective / HPI; no fever, no chills and no anorexia Eyes: + icterus Respiratory: no cough and no dyspnea Cardiovascular: no chest pain Gastrointestinal: as per Subjective / HPI Genitourinary: no difficulty urinating and no hematuria Integumentary: + jaundice Physical Exam Constitutional: + obese; no acute distress Respiratory: normal respiratory effort, lungs clear to auscultation Cardiovascular: Rate/Rhythm: regular rate and regular rhythm no significant leg edema Gastrointestinal (Abdomen): Inspection/Auscultation: normal bowel sounds; abdomen not distended Percussion/Palpation: abdomen soft; abdomen nontender + dilated periumbilical veins; caput medusae? Skin: + jaundice; no rashes and no lesions Neurologic: moves all extremities; no focal motor deficits Psychiatric: A+Ox3, euthymic affect Results & Data Vital Signs (Past 12 Hours) Vital Signs Temp Pulse Pulse Resp BP Pulse Ox 03/24/19 07:54 36.8 C 86 18 126/64 96 03/24/19 03:55 37.2 C 83 20 131/75 99 03/24/19 01:30 83 03/23/19 23:37 36.7 C 86 18 128/76 99 Laboratory Results 03/24/19 03/24/19 03/24/19 Range/Units 07:48 07:48 07:48 WBC 5.77 (4.8-10.8) K/uL RBC 2.67 L (4.7-6.1) M/uL Hgb 7.7 L (14.0-18.0) g/dL Hct 23.0 L (42-52) % MCV 86.1 (80-100) fL MCH 28.8 (25-34) pg MCHC 33.5 (32-36) g/dL RDW Std Deviation 60.3 H (36.4-46.3) fL RDW Coeff of Joey 19.5 H (11.5-14.5) % Plt Count 57 L (130-400) K/uL Immature Gran % (Auto) 0.5 % Neut % (Auto) 78.2 % Lymph % (Auto) 9.2 % [place] % (Auto) 11.8 % Eos % (Auto) 0.3 % Baso % (Auto) 0.0 % Immature Gran # (Auto) 0.03 H (0.00-0.02) K/uL Neut # (Auto) 4.51 (1.4-6.5) K/uL Lymph # (Auto) 0.53 L (1.2-3.4) K/uL [place] # (Auto) 0.68 H (0.11-0.59) K/uL Eos # (Auto) 0.02 (0-0.5) K/uL Baso # (Auto) 0.00 (0-0.2) K/uL Platelet Estimate Decreased L (Normal) Polychromasia 1+ Anisocytosis Present Ovalocytes 1+ Echinocytes 1+ Acanthocytes (Spur) 1+ PT 19.6 H (9.0-12.0) Seconds INR 2.0 H (0.9-1.1) Sodium 128 L (136-145) mmol/L Potassium 3.8 (3.5-5.1) mmol/L Chloride 99 (98-107) mmol/L Carbon Dioxide 22 (21-32) mmol/L Anion Gap 7.0 (3-11) BUN 8 (7-18) mg/dl Creatinine 0.60 (0.6-1.4) mg/dl Est Cr Clr Drug Dosing 175.5 ml/min Est GFR ( Amer) 134.0 Est GFR (Non-Af Amer) 115.6 BUN/Creatinine Ratio 13.2 (10-20) Glucose 123 H (70-99) mg/dl Calcium 7.7 L (8.5-10.1) mg/dl Phosphorus 2.6 (2.5-4.9) mg/dl Magnesium 1.9 (1.8-2.4) mg/dl
--- NOTE | 2019-03-24 22:36 | Hospitalist Progress Note ---
Date of Service March 24, 2019 Assessment & Plan (1) Alcoholic cirrhosis: Appears patient has alcoholic cirrhosis. His mortality rate has improved in regards to his MELD score, as his soidum and bilirrubin have improved. The rate is now 20%, which is still elevated. His maddrey score is still above 32, so he qualifies for steroids. will be placed on 28 day supply. Started patient on prednisolone 40 mg PO daily. Patient will be placed on transplant list in April once he is [facility]abl[facility] and is shown that he goes to AA meetings Patient needs to set this up and show interest in this. This was explained to the patient.. (2) Hepatic encephalopathy: His confusion appears to have improved. He still speaks slowly, but his mother reports this is close to his baseline. Confusion and jaundice were noted on initial ER documentation along with H&P. Although patient's liver enzymes continue to worsen, ammonia level is within normal limits and I suspect the patient's mental status is much improved from presentation. Patient took less lactulose than prescribed, may have played a part in the patient's decompensation. Rifaximin was added on admission and should be continued after discharge. (3) Hyponatremia: Patient may have been fluid overloaded, again secondary to noncompliance with diuretics. He is now on his outpatient Lasix spironolactone. Will fluid restrict the patient. Monitor blood pressure, can infuse albumin as needed. Sodium has improved to 128-129 (4) Cirrhosis due to hemochromatosis: Continue other medications as ordered. Patient follows with [facility] and is working on liver transplantation. If patient continues to decompensate, we can consider transfer to their facility for further work-up but I believe the patient is stable of that he may improve be discharged in the next few days. (5) Portal hypertension: Patient is order nadolol which could be continued (6) Anemia: Patient's anemia is likely chronic, may be multifactorial due to multiple medical issues currently in play. Will recheck a CBC. Otherwise asymptomatic and does not require a transfusion at this time. Subjective 53 yo male reports feeling back to his baseline. Patient does not appear to be confused at this time. Patient wants me to discuss care with information coordinator Barbara. She states he needs to see a mental health provider and go to AA meetings prior to getting on the transplant list. Concern that once patient feels better after the transplant, that he may return to drinking. Review of Systems Review of Systems: All systems reviewed & are unremarkable except as noted in HPI & below Physical Exam Physical Exam: Constitutional: cooperative; no acute distress Significantly jaundiced and icteric Neck: trachea midline, no thyromegaly Respiratory: normal respiratory effort Auscultation: lungs clear to auscultation bilaterally; no crackles, no rales, no rhonchi and no wheezes Cardiovascular: Rate/Rhythm: regular rate and regular rhythm Heart Sounds: normal S1 and normal S2 Gastrointestinal (Abdomen): Inspection/Auscultation: abdomen normal to inspection Percussion/Palpation: abdomen soft and + fluid wave; abdomen nontender, no guarding, abdomen not rigid and no hepatosplenomegaly Significant caput medusa noted Skin: no rashes, warm and dry Results & Data Vital Signs (Past 12 Hours) Vital Signs Temp Pulse Resp BP Pulse Ox 03/24/19 20:15 37.0 C 74 20 129/80 100 03/24/19 15:03 83 16 124/58 L 99 03/24/19 12:25 36.9 C 77 18 106/66 98 PG Care Time/CCT Total # of Minutes Spent Total Time Spent with Patient: Total time spent is greater than 50% in coordination of care (as documented) at patient's floor/unit and/or counseling patient: (1) Anemia Anemia type: unspecified type Qualified Code(s): D64.9 - Anemia, unspecified
[2019-03-25] MEDS: SPIRONOLACTONE 100 MG TAB PO SCH (08:12)
[2019-03-25] MEDS: MAGNESIUM OXIDE 400 MG TAB PO SCH (08:12)
[2019-03-25] MEDS: ZINC SULFATE 220 MG CAPSULE PO SCH (08:12)
[2019-03-25] MEDS: PANTOprazole 40 MG TAB PO SCH (08:12)
[2019-03-25] MEDS: FUROSEMIDE 40 MG TAB PO SCH (08:12)
[2019-03-25] MEDS: RIFAXIMIN 550 MG TABLET PO SCH (08:12)
[2019-03-25] MEDS: METOPROLOL SUCC 25MG EXT REL TAB PO SCH (08:12)
[2019-03-25] MEDS: nadoloL 40 MG TAB PO SCH (08:12)
[2019-03-25] MEDS: LACTULOSE SYRUP 20 GM/30 ML UDC PO SCH ×2 (08:13→13:25)
[2019-03-25] MEDS ORDERED: prednisoLONE SYRUP 15 MG/5 ML BTL PO SCH (09:00)
[2019-03-25 11:02] LABS: Hemoglobin 8.5 g/dL (14.0-18.0); Mean Corpuscular Hemoglobin 28.6 pg (25-34); Mean Corpuscular Hgb Conc 32.7 g/dL (32-36); Mean Corpuscular Volume 87.5 fL (80-100); RDW Coefficient of Variation 20.2 % (11.5-14.5); RDW Standard Deviation 63.8 fL (36.4-46.3); Red Blood Count 2.97 M/uL (4.7-6.1); White Blood Count 6.54 K/uL (4.8-10.8)
[2019-03-25 11:16] LABS: Albumin Level 1.8 gm/dl (3.4-5.0); BUN Creatinine Ratio 10.5 (10-20); Calcium 7.9 mg/dl (8.5-10.1); Creatinine Clr Calc Pharmacy 134.6 ml/min; Est GFR (African American) 120.9; Est GFR (Non-African American) 104.3; Potassium 3.7 mmol/L (3.5-5.1)
[2019-03-25 11:17] LABS: Albumin Globulin Ratio 0.5 (0.9-2); Bilirubin,Total 11.8 mg/dl (0.2-1); Total Protein 5.8 gm/dl (6.4-8.2)
[2019-03-25 11:25] LABS: Platelet Count 65 K/uL (130-400); Platelet Estimate Decreased (Normal)
[2019-03-28] MEDS ORDERED: ERGOCALCIFEROL 50,000 UNITS CAP PO SCH (09:00)
== END 2019-03-25 14:36 | disposition home or self-care (01) | DRG 442 ==
LOC: 2S 17:15 → ED 17:15 → SUATTDRO 22:43 → 2S 23:01

== ENCOUNTER 2019-04-08 16:22 | Observation (INO) ==
[2019-04-08 17:05] LABS: Mean Corpuscular Hgb Conc 32.8 g/dL (32-36); Nucleated RBC # (auto) 0.04 K/uL (0-0); Nucleated RBC % (auto) 0.7 %
[2019-04-08 17:13] LABS: INR 2.4 (0.9-1.1); Prothrombin Time 22.7 Seconds (9.0-12.0)
[2019-04-08 17:24] LABS: Alanine Aminotransferase 71 U/L (12-78); Albumin Level 1.6 gm/dl (3.4-5.0); Aspartate Aminotransferase 85 U/L (15-37); BUN Creatinine Ratio 9.7 (10-20); Blood Urea Nitrogen 8 mg/dl (7-18); Calcium 7.4 mg/dl (8.5-10.1); Carbon Dioxide 26 mmol/L (21-32); Chloride 93 mmol/L (98-107); Est GFR (African American) 119.7; Est GFR (Non-African American) 103.2; Glucose 107 mg/dl (70-99); Lipase 465 U/L (73-393); Sodium 126 mmol/L (136-145)
[2019-04-08 17:26] LABS: Albumin Globulin Ratio 0.5 (0.9-2); Alkaline Phosphatase 165 U/L (45-117); Bilirubin,Total 12.6 mg/dl (0.2-1); Globulin 3.5 gm/dl (2.5-4.0); Total Protein 5.1 gm/dl (6.4-8.2)
[2019-04-08 17:36] LABS: Acanthocytes 1+; Anisocytosis Present; Basophils # (auto) 0.01 K/uL (0-0.2); Basophils % (auto) 0.2 %; Echinocytes 1+; Eosinophils # (auto) 0.18 K/uL (0-0.5); Eosinophils % (auto) 3.1 %; Hematocrit (blood only) 24.1 % (42-52); Hemoglobin 7.9 g/dL (14.0-18.0); Immature Granulocytes # (auto) 0.05 K/uL (0.00-0.02); Immature Granulocytes % (auto) 0.8 %; Lymphocytes # (auto) 0.97 K/uL (1.2-3.4); Lymphocytes % (auto) 16.5 %; Mean Corpuscular Hemoglobin 28.2 pg (25-34); Mean Corpuscular Volume 86.1 fL (80-100); Monocytes # (auto) 1.04 K/uL (0.11-0.59); Monocytes % (auto) 17.7 %; Neutrophils # (auto) 3.64 K/uL (1.4-6.5); Neutrophils % (auto) 61.7 %; Platelet Count 77 K/uL (130-400); Platelet Estimate Decreased (Normal); RDW Standard Deviation 65.6 fL (36.4-46.3); Schistocytes 1+; White Blood Count 5.89 K/uL (4.8-10.8)
--- NOTE | 2019-04-08 18:43 | XRay Report ---
XR chest 1V portable HISTORY: Altered mental status. COMPARISON: Chest 02/24/2019. FINDINGS: The heart remains mildly enlarged. Increased markings within the right medial lung base lik adelaida represent a normal vascular structures given the slightly rotated study. Otherwise, lungs are jorgito ar. No pleural effusions. No pneumothorax. There are low lung volumes. IMPRESSION: No acute process. ACT 112: Negative or not required by law. Electronically signed by: Jad Savage M.D. 04/08/2019 6:41 PM
--- NOTE | 2019-04-08 20:31 | History & Physical Report ---
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 Symptoms similar to prior presentation of hepatic encephalopathy. He is afebrile, HD stable. No overt evidence of infection. Patient's hepatic parameters to include PT/INR, LFTs and Platelets are poor, however are near his baseline. He is compliant with his medications. Ammonia normal at 17.7. Suspect hepatic encephalopathy. Patient with no appreciable ascites on exam, no abdominal tenderness. Do not suspect SBP. H/H stable, no history of m miles/hematochezia. Do not suspect GIB. 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 MELD score = 31. Patient is being placed on the transplant list in April. He has had an elevated AFP in the past (01/26/19 level was 7.2) -Continue Lactulose and Rifaximin as above. -Continue Lasix and Spironolactone -Continue Nadolol -Patient was discharged home on Prednisolone 40mg po daily. He has been taking this. 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 Patient has no recent EtOH use. No acute inflammatory/hepatitis conditions. Will taper steroids to 30mg po daily x 3 days, 20mg po daily x 3 days then 10mg x 3 days. Appreciate GI input on this issue. -If patient clinically worsens or labs decline may need transfer to transplant center Present on Admission?: Yes (3) Hyponatremia: Patient with chronic hyponatremia in setting of ESLD. Sl=363. No seizures. Baseline values 122-130 -Gentle IVF, NSS at 80mL/hr x 1 liter -Repeat labs in AM Present on Admission?: Yes (4) Anemia: H/H near baseline. No active bleeding -Continue to monitor Present on Admission?: Yes (5) Portal hypertension: Chronic. Do not suspect GIB at this time. HR=67 -Continue Nadolol Present on Admission?: Yes (6) GERD (gastroesophageal reflux disease): Chronic. Well controlled -Continue Omeprazole F/E/N - NSS at 80mL/hr x 1 liter, Kdur 40mEq po x 1 dose, repeat labs in AM, check Mg/PO4 x 1, Low Na diet Ppx - SCDs Code - Full Dispo - Admission to medical floor Present on Admission?: Yes History of Present Illness Chief Complaint: Confusion Primary Care Provider: Dom Ashraf is a 53yo C male with history of ESLD secondary to hereditary hemochromatosis and former use of EtOH. He has had frequent hospitalizations over the past few months due to decompensations and hepatic encephalopathy. He was most recently admitted from 03/21 - 03/25 for hepatic encephalopathy. He was maintained on his Lactulose/Rifaximin, treated with Prednisolone and ultimately discharged home on steroids due to concerns for EtOH cirrhosis. Patient returns today with complaints of 1 day of fatigue/lethargy/imbalance and cognitive slowing. He denies fevers/chills/sweats. Denies CP/palpitations/cough/SOB/abdominal pain or distention. Denies melena/hematochezia. Denies dysuria but states that he did have some increased urination this AM - he urinated 5 times this AM and had 3 BMs. Otherwise no acute complaints. Denies EtOH use, Tylenol use. He is compliant with his medications and has not missed any doses. ER Course: No treatments administered Allergies Allergy/AdvReac Type Severity Reaction Status Date / Time No Known Allergies Allergy Verified 04/08/19 18:57 Home Medications Home Medications Medication Instructions Recorded Confirmed Type ergocalciferol (vitamin D2) 50,000 unit PO SA 01/26/19 04/08/19 History [Vitamin D2] furosemide 40 mg PO QAM 01/26/19 04/08/19 History magnesium oxide 400 mg PO BID 01/26/19 04/08/19 History omeprazole 20 mg PO QAM 01/26/19 04/08/19 History spironolactone 100 mg PO QAM 01/26/19 04/08/19 History zinc 50 mg PO BID 01/26/19 04/08/19 History nadolol 20 mg PO DAILY 02/26/19 04/08/19 History Xifaxan 550 mg PO BID #60 tab 12/21/19 01/29/20 Rx lactulose 30 ml PO QID #0 ml 02/28/19 04/08/19 Rx metoprolol succinate 25 mg PO DAILY 03/21/19 04/08/19 History prednisolone sodium phosphate 40 mg PO DAILY 28 Days #1120 ml 03/27/19 04/08/19 Rx [Pediapred] Past Med/Surg History Medical History Cardiac murmur Cirrhosis of liver (Acute) "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 TAN History of high cholesterol Restless leg syndrome Surgical History History of appendectomy History of colonoscopy History of esophagogastroduodenoscopy (EGD) History of tonsillectomy Hx of LASIK Hx of vasectomy [place] teeth removed Family History Other No pertinent family history in first degree relatives Social History Preferred Language: Australian Communication Ability: Effective Spectroscopist Required: No Beliefs That Will Affect Care: None marital status: Single marital status details: 3 sons Current Living Situation: Parent Current Living Situation Comment: with mother current occupation: retired Feels Safe at Home: Yes Safety Concerns: Feels Safe At This Time Smoking Status: Never smoker Tobacco Type: smokeless tobacco ; Second Hand Exposure: No ; Hx Alcohol Use: No Hx Substance Use: No Review of Systems Review of Systems: All systems reviewed & are unremarkable except as noted in HPI & below Physical Exam Physical Exam: General: ill appearing gentleman resting comfortably, NAD, AA&O to self/location. Answers questions appropriately. Smells of urine. Skin: +Jaundice, warm, dry, intact, scattered spider angiomas on anterior chest wall HEENT: NC/AT, pupils small bilaterally, reactive to light, EOMI, +Scleral icterus, conjunctiva without injection, external ear normal to inspection and nontender, nares patent, moist mucus membranes, dentition intact, no oropharyngeal lesions +sublingual jaundice, neck supple, trachea midline, no LAD, no thyromegaly, no JVD Heart: +S1/S2, regular, 2/6 SOREN at LSB, no rhonchi/wheezes Lungs: equal air entry bilaterally, no rales/rhonchi/wheezes Abd: +BS, soft, NT/ND, no masses/organomegaly/ascites, +venous distention of abdominal wall Ext: warm, 2+ pulses in UE/LE bilaterally, no clubbing/cyanosis, 1+ pitting edema Neuro: nonfocal, patient AA&O x 2, speech slow, no facial droop, moving all extremities on command with equal strength 5/5, very minimal asterixis Results & Data Vital Signs (Past 12 Hours) Vital Signs Temp Pulse Pulse Resp BP BP Pulse Ox 04/08/19 19:30 70 15 110/59 L 04/08/19 19:00 71 22 100/55 L 04/08/19 18:46 70 18 96/54 L 97 04/08/19 17:00 97 04/08/19 16:28 36.8 C 73 18 109/71 99 Laboratory Results Lab Results 04/08/19 04/08/19 04/08/19 Range/Units 16:55 16:55 16:55 WBC 5.89 (4.8-10.8) K/uL RBC 2.80 L (4.7-6.1) M/uL Hgb 7.9 L (14.0-18.0) g/dL Hct 24.1 L (42-52) % MCV 86.1 (80-100) fL MCH 28.2 (25-34) pg MCHC 32.8 (32-36) g/dL RDW Std Deviation 65.6 H (36.4-46.3) fL RDW Coeff of Joey 21.0 H (11.5-14.5) % Plt Count 77 L (130-400) K/uL Immature Gran % (Auto) 0.8 % Neut % (Auto) 61.7 % Lymph % (Auto) 16.5 % Stearns % (Auto) 17.7 % Eos % (Auto) 3.1 % Baso % (Auto) 0.2 % Immature Gran # (Auto) 0.05 H (0.00-0.02) K/uL Neut # (Auto) 3.64 (1.4-6.5) K/uL Lymph # (Auto) 0.97 L (1.2-3.4) K/uL Stearns # (Auto) 1.04 H (0.11-0.59) K/uL Eos # (Auto) 0.18 (0-0.5) K/uL Baso # (Auto) 0.01 (0-0.2) K/uL Absolute Nucleated RBC 0.04 H (0-0) K/uL Nucleated RBC % (auto) 0.7 % Platelet Estimate Decreased L (Normal) Anisocytosis Present Echinocytes 1+ Acanthocytes (Spur) 1+ Schistocytes 1+ PT 22.7 H (9.0-12.0) Seconds INR 2.4 H (0.9-1.1) Sodium 126 L (136-145) mmol/L Potassium 3.0 L (3.5-5.1) mmol/L Chloride 93 L (98-107) mmol/L Carbon Dioxide 26 (21-32) mmol/L Anion Gap 7.0 (3-11) BUN 8 (7-18) mg/dl Creatinine 0.79 (0.6-1.4) mg/dl Est Cr Clr Drug Dosing Not Reportable Est GFR ( Amer) 119.7 Est GFR (Non-Af Amer) 103.2 BUN/Creatinine Ratio 9.7 L (10-20) Glucose 107 H (70-99) mg/dl Calcium 7.4 L (8.5-10.1) mg/dl Total Bilirubin 12.6 H (0.2-1) mg/dl AST 85 H (15-37) U/L ALT 71 (12-78) U/L Alkaline Phosphatase 165 H (45-117) U/L Ammonia (11-32) umol/L Total Protein 5.1 L (6.4-8.2) gm/dl Albumin 1.6 L (3.4-5.0) gm/dl Globulin 3.5 (2.5-4.0) gm/dl Albumin/Globulin Ratio 0.5 L (0.9-2) Lipase 465 H (73-393) U/L 04/08/19 Range/Units 16:55 WBC (4.8-10.8) K/uL RBC (4.7-6.1) M/uL Hgb (14.0-18.0) g/dL Hct (42-52) % MCV (80-100) fL MCH (25-34) pg MCHC (32-36) g/dL RDW Std Deviation (36.4-46.3) fL RDW Coeff of Joey (11.5-14.5) % Plt Count (130-400) K/uL Immature Gran % (Auto) % Neut % (Auto) % Lymph % (Auto) % Stearns % (Auto) % Eos % (Auto) % Baso % (Auto) % Immature Gran # (Auto) (0.00-0.02) K/uL Neut # (Auto) (1.4-6.5) K/uL Lymph # (Auto) (1.2-3.4) K/uL Stearns # (Auto) (0.11-0.59) K/uL Eos # (Auto) (0-0.5) K/uL Baso # (Auto) (0-0.2) K/uL Absolute Nucleated RBC (0-0) K/uL Nucleated RBC % (auto) % Platelet Estimate (Normal) Anisocytosis Echinocytes Acanthocytes (Spur) Schistocytes PT (9.0-12.0) Seconds INR (0.9-1.1) Sodium (136-145) mmol/L Potassium (3.5-5.1) mmol/L Chloride (98-107) mmol/L Carbon Dioxide (21-32) mmol/L Anion Gap (3-11) BUN (7-18) mg/dl Creatinine (0.6-1.4) mg/dl Est Cr Clr Drug Dosing Est GFR ( Amer) Est GFR (Non-Af Amer) BUN/Creatinine Ratio (10-20) Glucose (70-99) mg/dl Calcium (8.5-10.1) mg/dl Total Bilirubin (0.2-1) mg/dl AST (15-37) U/L ALT (12-78) U/L Alkaline Phosphatase (45-117) U/L Ammonia 17.7 (11-32) umol/L Total Protein (6.4-8.2) gm/dl Albumin (3.4-5.0) gm/dl Globulin (2.5-4.0) gm/dl Albumin/Globulin Ratio (0.9-2) Lipase (73-393) U/L Code Status & VTE Plan Code Status FULL VTE Prophylaxis Plan VTE Prophylaxis will be ordered: Yes PG Care Time/CCT Total # of Minutes Spent Total Time Spent with Patient: Total time spent is greater than 50% in coordination of care (as documented) at patient's floor/unit and/or counseling patient: Coding Level of Care Code 70720 Initial Inpt Care Lvl 3 Diagnoses AMS (altered mental status) R41.82 Altered mental status type: unspecified End stage liver disease K72.90 Hyponatremia E87.1 Anemia D64.9 Anemia type: unspecified type Portal hypertension K76.6 GERD (gastroesophageal reflux disease) K21.9 Esophagitis presence: esophagitis presence not specified (1) AMS (altered mental status) Altered mental status type: unspecified Qualified Code(s): R41.82 - Altered mental status, unspecified (2) Anemia Anemia type: unspecified type Qualified Code(s): D64.9 - Anemia, unspecified (3) GERD (gastroesophageal reflux disease) Esophagitis presence: esophagitis presence not specified Qualified Code(s): K21.9 - Gastro-esophageal reflux disease without esophagitis
[2019-04-08] MEDS ORDERED: POTASSIUM CHLORIDE 20 MEQ TABCR PO STA (21:12)
[2019-04-08] MEDS ORDERED: SODIUM CHLORIDE 0.9% 1000ML 1,000 ML IV SCH (21:12)
--- NOTE | 2019-04-08 21:17 | Emergency Department Note ---
Entered by Keven Lux acting as a scribe for History of Present Illness General Chief complaint: Abnormal Labs/Diagnostic Testing Stated complaint: CHEMICAL INBALANCE Source: patient and family (mother) Limitations: no limitations History of Present Illness Onset (ago): day(s) (today) Location: head Pain Consistency: + constant Quality: + constant Associated symptoms: + denies other symptoms (new leg swelling, runny nose, abdominal pain), + weakness and + other (worse color); no cough and no nausea/vomiting The patient is a 53 year old male who presents to the Emergency Room with complaints of constant confusion starting today. The patient's mother states the patient's arms are weak. She states the patient's color is worse. She notes the patient has cirrhosis from alcohol and he was prone to it. She states the patient has not missed any doses of his medications. The patient denies having new leg swelling, cough, runny nose, abdominal pain, nausea, and vomiting. The patient states he has not fallen or hit his head. The mother states the patient does not have any previous abdominal surgeries. Home Medications Home Medications Medication Instructions Recorded Confirmed Type ergocalciferol (vitamin D2) 50,000 unit PO SA 01/26/19 04/08/19 History [Vitamin D2] furosemide 40 mg PO QAM 01/26/19 04/08/19 History magnesium oxide 400 mg PO BID 01/26/19 04/08/19 History omeprazole 20 mg PO QAM 01/26/19 04/08/19 History spironolactone 100 mg PO QAM 01/26/19 04/08/19 History zinc 50 mg PO BID 01/26/19 04/08/19 History nadolol 20 mg PO DAILY 02/26/19 04/08/19 History Xifaxan 550 mg PO BID #60 tab 02/28/19 04/08/19 Rx lactulose 30 ml PO QID #0 ml 02/28/19 04/08/19 Rx metoprolol succinate 25 mg PO DAILY 03/21/19 04/08/19 History prednisolone sodium phosphate 40 mg PO DAILY 28 Days #1120 ml 03/27/19 04/08/19 Rx [Pediapred] Allergies Allergy/AdvReac Type Severity Reaction Status Date / Time No Known Allergies Allergy Verified 04/08/19 18:57 Past Med/Surg History Medical History Cardiac murmur Cirrhosis of liver (Acute) "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 TAN History of high cholesterol Restless leg syndrome Surgical History History of appendectomy History of colonoscopy History of esophagogastroduodenoscopy (EGD) History of tonsillectomy Hx of LASIK Hx of vasectomy [place] teeth removed Family History Other No pertinent family history in first degree relatives Social History Preferred Language: Khmer Communication Ability: Effective Iv Therapy Nurse Required: No Beliefs That Will Affect Care: None marital status: Single marital status details: 3 sons Current Living Situation: Parent Current Living Situation Comment: with mother current occupation: retired Feels Safe at Home: Yes Smoking Status: Never smoker Tobacco Type: smokeless tobacco ; Second Hand Exposure: No ; Hx Alcohol Use: No Hx Substance Use: No Review of Systems See HPI for pertinent positives & negatives. and A total of 10 systems reviewed and were otherwise negative Physical Exam Vital Signs Vital Signs - 24 hr 04/08/19 16:28 04/08/19 17:00 04/08/19 18:46 Temperature 36.8 C Temperature Source Oral Pulse Rate 73 Pulse Rate [Apical] 70 Respiratory Rate 18 18 Respiratory Effort / Characteristics Non-Labored Spontaneous Non-Labored Spontaneous Respiratory Depth Normal Normal Blood Pressure 109/71 Blood Pressure [Right Arm] 96/54 L Blood Pressure Mean 83 Blood Pressure Mean [Right Arm] 68 Blood Pressure Position Sitting Pulse Oximetry 99 97 97 Oxygen Delivery Method Room Air Room Air Sepsis Recent Fever Within 48 Hours No Sepsis New/Unexplained Change in Mental Status Yes Sepsis Action Taken by Nursing No Action Required 04/08/19 19:00 04/08/19 19:30 Temperature Temperature Source Pulse Rate 71 70 Pulse Rate [Apical] Respiratory Rate 22 15 Respiratory Effort / Characteristics Respiratory Depth Blood Pressure 100/55 L 110/59 L Blood Pressure [Right Arm] Blood Pressure Mean 77 72 Blood Pressure Mean [Right Arm] Blood Pressure Position Pulse Oximetry Oxygen Delivery Method Sepsis Recent Fever Within 48 Hours Sepsis New/Unexplained Change in Mental Status Sepsis Action Taken by Nursing GENERAL: Laying in bed. Chronically ill appearing. No acute distress. Non-toxic. EYE EXAM: Scleral icterus OROPHARYNX: no exudate, no erythema, lips, buccal mucosa, and tongue normal and mucous membranes are moist NECK: supple, no nuchal rigidity, no adenopathy, non-tender LUNGS: Clear to auscultation. Normal chest wall mechanics HEART: no murmurs, S1 normal and S2 normal ABDOMEN: abdomen soft, non-tender, normo-active bowel sounds, no masses, no rebound or guarding. Distended. BACK: Back is symmetrical on inspection and there is no deformity, no midline tenderness, no CVA tenderness. SKIN: no rashes and no bruising. Diffuse yellow cu UPPER EXTREMITIES: upper extremities are grossly normal. LOWER EXTREMITIES: Pitting edema bilaterally. NEURO EXAM: Cranial nerves II-XII grossly intact, normal speech, no gross weakness of arms, no gross weakness of legs. Oriented to person, place, not year or month. Negative asterixis. Course Course ED COURSE: Vital signs were reviewed and showed normal vital signs. The patients medical record was reviewed The above diagnostic studies were performed and reviewed. ED treatments and interventions as stated above. 1634: The patient was evaluated in room A12B. A complete history and physical examination was performed. 1800: Upon reevaluation, the patient is getting admitted. I discussed my findings with the patient and his mother, and they understand and agrees with the treatment plan. 1830: I discussed the patient's case with Dr. Andreia Aaron - [facility] joshua. He will evaluate the patient for further management Based on the patients age, coexisting illnesses, exam and lab findings the decision to treat as an inpatient was made. The patient remained stable while under my care. The patient will be evaluated for further management. Medical Decision Making Differential Diagnosis Differential diagnoses includes but is not limited to toxic, metabolic, infectious, traumatic, cardiac, neurologic, hematologic, psychiatric and inflammatory etiologies. Medical Records Attestation: I reviewed the patient's medical records. Home Medications Current Medication List: was personally reviewed by me Laboratory Data Attestation: I reviewed the patient's lab results. Result diagrams: 04/08/19 16:55 04/08/19 16:55 Lab Results 04/08/19 04/08/19 04/08/19 Range/Units 16:55 16:55 16:55 WBC 5.89 (4.8-10.8) K/uL RBC 2.80 L (4.7-6.1) M/uL Hgb 7.9 L (14.0-18.0) g/dL Hct 24.1 L (42-52) % MCV 86.1 (80-100) fL MCH 28.2 (25-34) pg MCHC 32.8 (32-36) g/dL RDW Std Deviation 65.6 H (36.4-46.3) fL RDW Coeff of Joey 21.0 H (11.5-14.5) % Plt Count 77 L (130-400) K/uL Immature Gran % (Auto) 0.8 % Neut % (Auto) 61.7 % Lymph % (Auto) 16.5 % Reynolds % (Auto) 17.7 % Eos % (Auto) 3.1 % Baso % (Auto) 0.2 % Immature Gran # (Auto) 0.05 H (0.00-0.02) K/uL Neut # (Auto) 3.64 (1.4-6.5) K/uL Lymph # (Auto) 0.97 L (1.2-3.4) K/uL Reynolds # (Auto) 1.04 H (0.11-0.59) K/uL Eos # (Auto) 0.18 (0-0.5) K/uL Baso # (Auto) 0.01 (0-0.2) K/uL Absolute Nucleated RBC 0.04 H (0-0) K/uL Nucleated RBC % (auto) 0.7 % Platelet Estimate Decreased L (Normal) Anisocytosis Present Echinocytes 1+ Acanthocytes (Spur) 1+ Schistocytes 1+ PT 22.7 H (9.0-12.0) Seconds INR 2.4 H (0.9-1.1) Sodium 126 L (136-145) mmol/L Potassium 3.0 L (3.5-5.1) mmol/L Chloride 93 L (98-107) mmol/L Carbon Dioxide 26 (21-32) mmol/L Anion Gap 7.0 (3-11) BUN 8 (7-18) mg/dl Creatinine 0.79 (0.6-1.4) mg/dl Est Cr Clr Drug Dosing Not Reportable Est GFR ( Amer) 119.7 Est GFR (Non-Af Amer) 103.2 BUN/Creatinine Ratio 9.7 L (10-20) Glucose 107 H (70-99) mg/dl Calcium 7.4 L (8.5-10.1) mg/dl Total Bilirubin 12.6 H (0.2-1) mg/dl AST 85 H (15-37) U/L ALT 71 (12-78) U/L Alkaline Phosphatase 165 H (45-117) U/L Ammonia (11-32) umol/L Total Protein 5.1 L (6.4-8.2) gm/dl Albumin 1.6 L (3.4-5.0) gm/dl Globulin 3.5 (2.5-4.0) gm/dl Albumin/Globulin Ratio 0.5 L (0.9-2) Lipase 465 H (73-393) U/L 04/08/19 Range/Units 16:55 WBC (4.8-10.8) K/uL RBC (4.7-6.1) M/uL Hgb (14.0-18.0) g/dL Hct (42-52) % MCV (80-100) fL MCH (25-34) pg MCHC (32-36) g/dL RDW Std Deviation (36.4-46.3) fL RDW Coeff of Joey (11.5-14.5) % Plt Count (130-400) K/uL Immature Gran % (Auto) % Neut % (Auto) % Lymph % (Auto) % Reynolds % (Auto) % Eos % (Auto) % Baso % (Auto) % Immature Gran # (Auto) (0.00-0.02) K/uL Neut # (Auto) (1.4-6.5) K/uL Lymph # (Auto) (1.2-3.4) K/uL Reynolds # (Auto) (0.11-0.59) K/uL Eos # (Auto) (0-0.5) K/uL Baso # (Auto) (0-0.2) K/uL Absolute Nucleated RBC (0-0) K/uL Nucleated RBC % (auto) % Platelet Estimate (Normal) Anisocytosis Echinocytes Acanthocytes (Spur) Schistocytes PT (9.0-12.0) Seconds INR (0.9-1.1) Sodium (136-145) mmol/L Potassium (3.5-5.1) mmol/L Chloride (98-107) mmol/L Carbon Dioxide (21-32) mmol/L Anion Gap (3-11) BUN (7-18) mg/dl Creatinine (0.6-1.4) mg/dl Est Cr Clr Drug Dosing Est GFR ( Amer) Est GFR (Non-Af Amer) BUN/Creatinine Ratio (10-20) Glucose (70-99) mg/dl Calcium (8.5-10.1) mg/dl Total Bilirubin (0.2-1) mg/dl AST (15-37) U/L ALT (12-78) U/L Alkaline Phosphatase (45-117) U/L Ammonia 17.7 (11-32) umol/L Total Protein (6.4-8.2) gm/dl Albumin (3.4-5.0) gm/dl Globulin (2.5-4.0) gm/dl Albumin/Globulin Ratio (0.9-2) Lipase (73-393) U/L Imaging Data Radiologist's Impression: Radiology results as stated below per my review and the radiologist's interpretation: XR chest 1V portable HISTORY: Altered mental status. COMPARISON: Chest 02/24/2019. FINDINGS: The heart remains mildly enlarged. Increased markings within the right medial lung base likely represent a normal vascular structures given the slightly rotated study. Otherwise, lungs are clear. No pleural effusions. No pneumothorax. There are low lung volumes. IMPRESSION: No acute process. ACT 112: Negative or not required by law. Electronically signed by: Jad Savage M.D. 04/08/2019 6:41 PM Blood Pressure Blood Pressure Findings: Low blood pressure Blood Pressure Disposition: further management by hospitalist JULIET Narrative Patient is a 53-year-old male with end-stage liver disease secondary to alcohol abuse and hemochromatosis who presents the ER for confusion with some decrease in ADLs today. Mom who is the cement finishing supervisor is at bedside. IV was established blood work was obtained and showed no significant leukocytosis. Mild anemia at 7.9 consistent with previous. INR was at 2.4 slightly up from previous as well. Sodium was down to 126 with mild hypokalemia at 3. Bilirubin was elevated at 12 slightly up from 10. LFTs with slight elevation in AST at 85. Lipase was slightly up as well at 465. He had no abdominal pain. Albumin was low at 1.6. Patient was given a small dose of IV fluids. He was updated bedside. Due to confusion he was discussed with the hospitalist. His ammonia was negative. Uncertain of the true cause of his encephalopathy at this time but is likely metabolic in nature. No signs of infection. Abdominal exam is benign. Patient updated bedside. Discussed with the hospitalist for observation. Impression & Plan AMS (altered mental status), End stage liver disease, Anemia, Hyponatremia, Elevated bilirubin, Elevated INR Discharge Plan Visit Data *Final* Discharge Date/Time: 04/08/19 20:40 Chief Complaint: Abnormal Labs/Diagnostic Testing Stated Complaint: CHEMICAL INBALANCE ED Provider: [facility] Discharge Problem: AMS (altered mental status), End stage liver disease, Anemia, Hyponatremia, Elevated bilirubin, Elevated INR Patient Disposition: Admitted As Inpatient Discharge Instructions Interventions: ED Discharge Assessment Last Done: 04/08/19 20:40 Discharge Problem: AMS (altered mental status) Qualifiers: Altered mental status type: unspecified Qualified Code(s): R41.82 - Altered mental status, unspecified Anemia Qualifiers: Anemia type: unspecified type Qualified Code(s): D64.9 - Anemia, unspecified The scribe's documentation has been prepared under my direction and personally reviewed by me in its entirety. I confirm that the note above accurately reflects all work, treatment, procedures, and medical decision making performed by me.
[2019-04-08] MEDS: RIFAXIMIN 550 MG TABLET PO SCH (22:23)
[2019-04-08] MEDS: MAGNESIUM OXIDE 400 MG TAB PO SCH (22:24)
[2019-04-08 22:32] LABS: Magnesium 1.6 mg/dl (1.8-2.4)
[2019-04-09 00:49] LABS: Appearance Urine Clear (Clear); Bacteria Urine Automated 1+ (Negative); Blood Urine Negative (Negative); Color Urine Dark Yellow; Glucose Urine UA Negative (Negative); Ketones Urine Negative (Negative); Leukocyte Esterase Urine 1+ (Negative); Nitrite Urine Positive (Negative); Protein Urine Negative (Negative); RBC Urine Automated 0-4 /hpf (0-4); Specific Gravity Urine 1.017 (1.000-1.030); Urobilinogen Urine Negative (Negative); pH Urine 7.5 (4.5-7.5)
[2019-04-09 00:55] LABS: Bilirubin Urine 3+ (Negative); Ictotest Urine Positive (Negative)
[2019-04-09 05:18] LABS: Mean Corpuscular Hgb Conc 32.7 g/dL (32-36)
[2019-04-09 05:37] LABS: INR 2.3 (0.9-1.1)
[2019-04-09 05:48] LABS: Hematocrit (blood only) 24.6 % (42-52); Hemoglobin 8.1 g/dL (14.0-18.0); Mean Corpuscular Hemoglobin 28.2 pg (25-34); Mean Corpuscular Volume 85.7 fL (80-100); Platelet Count 44 K/uL (130-400); RDW Coefficient of Variation 21.5 % (11.5-14.5); RDW Standard Deviation 66.4 fL (36.4-46.3); Red Blood Count 2.87 M/uL (4.7-6.1); White Blood Count 4.31 K/uL (4.8-10.8)
[2019-04-09 05:49] LABS: Acanthocytes 1+; Anisocytosis Present; Eosinophils # (auto) 0.22 K/uL (0-0.5); Eosinophils % (auto) 5.1 %; Hypochromasia Present; Immature Granulocytes # (auto) 0.03 K/uL (0.00-0.02); Immature Granulocytes % (auto) 0.7 %; Lymphocytes # (auto) 0.83 K/uL (1.2-3.4); Lymphocytes % (auto) 19.3 %; Monocytes % (auto) 9.3 %; Neutrophils # (auto) 2.83 K/uL (1.4-6.5); Neutrophils % (auto) 65.6 %; Platelet Estimate Decreased (Normal); Polychromasia 1+
[2019-04-09 05:53] LABS: Alanine Aminotransferase 73 U/L (12-78); Albumin Level 1.5 gm/dl (3.4-5.0); Alkaline Phosphatase 162 U/L (45-117); Aspartate Aminotransferase 80 U/L (15-37); Bilirubin Direct 7.6 mg/dl (0-0.2); Bilirubin,Total 12.8 mg/dl (0.2-1); Blood Urea Nitrogen 7 mg/dl (7-18); Calcium 7.5 mg/dl (8.5-10.1); Carbon Dioxide 25 mmol/L (21-32); Chloride 92 mmol/L (98-107); Est GFR (African American) 128.8; Est GFR (Non-African American) 111.2; Glucose 121 mg/dl (70-99); Potassium 3.3 mmol/L (3.5-5.1); Sodium 123 mmol/L (136-145)
[2019-04-09] MEDS: RIFAXIMIN 550 MG TABLET PO SCH (08:39)
[2019-04-09] MEDS: MAGNESIUM OXIDE 400 MG TAB PO SCH (08:39)
[2019-04-09] MEDS: LACTULOSE SYRUP 20 GM/30 ML UDC PO SCH ×3 (08:39→16:58)
--- NOTE | 2019-04-09 08:54 | Gastrointestinal Consultation ---
Date of Consultation April 09, 2019 Assessment & Plan (1) Hepatic encephalopathy: 1. Recommend Urine and blood cx. 2. Doppler US to r/o PVT. 3. Check ammonia level. 4. After blood cx collection, would tx empirically for a UTI given UA with 1+ bacteria, 1+ leukocytes and + Nitrite. 5. Low salt diet when alert. 6. Complete alcohol abstention. 7. Sent a message to the Liver office service coordinator regarding MELD: 31. 8. Hold furosemide and spironolactone during episode of hepatic encephalopathy. Gentle IV hydration. Clarified with pt, and his mother, that per liver transplant he should not be taking the furosemide. At time of DC please restart the spironolactone but not the furosemide. 9. Continue lactulose (TID), Xifaxin (BID) as OP. After discussion with Dr. Porras who discussed with liver transplant in [place], it was decided that Mr. Ashraf would be best managed in [place] by the liver transplant team as he is a candidate for liver transplant and MELD is high at 31. Pt agrees to this and Dr. Ced Kahn is arranging the transfer. Present on Admission?: Yes Supervising Physician Co-Signing Physician Notes Attending attestation I have seen, examined this patient, and agree with the findings and above by our mid-level provider TIFFANIE Vega, with the following additions Has HE, no clear etiology Given High Meld, OLT center has been notified and requested transfer History of Present Illness Reason for Consultation: Hepatic Encephalopathy Requesting Physician: Ivon Aaron Attending Physician: Ivon Aaron, DO History of Present Illness Mr. Lam Ashraf is a 53-year-old male patient of Dom Benton who is followed in GI clinic by Dr. Porras for cirrhosis (ETOH/heterozygous for hemochromatosis) which is complicated by ascites, portal hypertensive gastropathy, hepatic encephalopathy, being evaluated for liver transplant by [facility] Hepatology team.GI is consulted for hepatic encephalopathy. He was brought to the ED 04/08 for altered mental status. His mother who is present at the bedside at the time of my exam tells me that he was confused and generally weak, especially his arms but that it was not severe, that she, "brought him earlier than other times." The weakness and confusion were present for several hours prior to his presentation. . He is awake, able to tell me that he he has not had any GI bleeding, no nausea/vomiting, no abdominal pain, no increasing abdomen or lower leg fluid, no fevers/chills, no dysuria or hematuria. He and his mother verify that he is taking his lactulose TID and stoling 3-4 times/day, loose. His eyes became more icteric yesterday. For ascites: Pt and his mom believe that he takes "2 lasix pills and 2 spironolactone pills/day" but review of records shows lasix has been dc'ed by the transplant team. Records verify that he should be taking spironolactone 50mg BID (or 2 tabs daily). For PHG: Nadolol For hx Hepatic encephalopathy:lactulose 30 mg p.o.BID Xifaxan 550 mg BID Most recent EGD 02/13/19: severe portal hypertensive gastropathy, no varices Most recent Colonoscopy 02/19/19 for hematochezia: excoriated internal hemorrhoids. Most recent HCC screening: CT 02/24/19:sequela of portal hypertension, no suspicious masses. On arrival, CXR with mildly enlarged heart, lungs clear. Allergies Allergy/AdvReac Type Severity Reaction Status Date / Time No Known Allergies Allergy Verified 04/08/19 18:57 Home Medications Home Medications Medication Instructions Recorded Confirmed Type ergocalciferol (vitamin D2) 50,000 unit PO SA 01/26/19 04/08/19 History [Vitamin D2] furosemide 40 mg PO QAM 01/26/19 04/08/19 History magnesium oxide 400 mg PO BID 01/26/19 04/08/19 History omeprazole 20 mg PO QAM 01/26/19 04/08/19 History spironolactone 100 mg PO QAM 01/26/19 04/08/19 History zinc 50 mg PO BID 01/26/19 04/08/19 History nadolol 20 mg PO DAILY 02/26/19 04/08/19 History Xifaxan 550 mg PO BID #60 tab 02/28/19 04/08/19 Rx lactulose 30 ml PO QID #0 ml 02/28/19 04/08/19 Rx metoprolol succinate 25 mg PO DAILY 03/21/19 04/08/19 History prednisolone sodium phosphate 40 mg PO DAILY 28 Days #1120 ml 03/27/19 04/08/19 Rx [Pediapred] Patient History Medical History Cardiac murmur Cirrhosis of liver (Acute) "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 TAN History of high cholesterol Restless leg syndrome Surgical History History of appendectomy History of colonoscopy History of esophagogastroduodenoscopy (EGD) History of tonsillectomy Hx of LASIK Hx of vasectomy [place] teeth removed Family History Other No pertinent family history in first degree relatives Social History Preferred Language: Spanish Communication Ability: Effective Composition Tile Layer Required: No Beliefs That Will Affect Care: None marital status: Single marital status details: 3 sons Current Living Situation: Parent Current Living Situation Comment: with mother current occupation: retired Feels Safe at Home: Yes Smoking Status: Never smoker Tobacco Type: smokeless tobacco ; Second Hand Exposure: No ; Hx Alcohol Use: No Hx Substance Use: No Review of Systems Review of Systems: ROS: Gen: + generalized weakness, improved today. No fevers, no recent weight gain/loss Eyes: + icterus Resp: No SOB, no cough Cardio: No palpitations/irregular beats, no chest pain GI: Denies constipation. No increasing abd girth; no abdominal pain, no nausea/vomiting, no blood in BMs. : Denies pain on urination or hematuria Skin: + jaundice, no itching or new rashes Physical Exam Constitutional: WD/WN, vitals as above Eyes: PERRL, conjunctivae normal, anicteric sclerae ENMT: external ear and nose normal, oropharynx normal Neck: trachea midline, no thyromegaly Respiratory: normal respiratory effort, lungs clear to auscultation Cardiovascular: Rate/Rhythm: regular rate and regular rhythm Extremities: + edema (1+ both lower legs/ankles (to mid rizvi)) Gastrointestinal (Abdomen): Percussion/Palpation: abdomen soft; abdomen nontender Mild ascites + varicosities on the abdominal surface, otherwise no palpable masses Musculoskeletal: no cyanosis or clubbing, extremities motor strength 5/5 Skin: + jaundice; no rashes and no lesions Neurologic: PERRL, EOMI, accommodation nl, no face palsy, no dysarthria no asterixis Psychiatric: Orientation: oriented x 3 Affect: no depressed affect and no anxious affect Slow word finding but oriented to person, place, time. Able to coming to the hospital yesterday and recall/deny recent symptoms. Lymphatic: no cervical or axillary lymphadenopathy Results & Data Vital Signs (Past 12 Hours) Vital Signs Temp Pulse Pulse Resp BP Pulse Ox 04/09/19 07:05 36.8 C 77 17 135/72 100 04/09/19 00:06 36.6 C 64 15 102/66 99 04/08/19 21:12 36.8 C 62 16 134/83 100 Laboratory Results T bili 12, Hb 8, Hct 24, Platelets 44, Na 123, K 3.3, Cr 0.6. AST 80, ALT 73, ALk Phos 162. Diagnostic Findings US today: 1. Limited study as above. 2. Cirrhotic liver disease with mild upper abdominal ascites redemonstrated. 3. Patent main portal vein with bidirectional flow redemonstrated. 4. Recanalization of the prominently dilated umbilical vein.
[2019-04-09] MEDS ORDERED: prednisoLONE SYRUP 15 MG/5 ML BTL PO SCH (09:00)
[2019-04-09] MEDS ORDERED: SPIRONOLACTONE 100 MG TAB PO SCH (09:00)
[2019-04-09] MEDS ORDERED: ZINC SULFATE 220 MG CAPSULE PO SCH (09:00)
[2019-04-09] MEDS ORDERED: METOPROLOL SUCC 25MG EXT REL TAB PO SCH (09:00)
[2019-04-09] MEDS ORDERED: nadoloL 40 MG TAB PO SCH (09:00)
[2019-04-09] MEDS ORDERED: FUROSEMIDE 40 MG TAB PO SCH (09:00)
[2019-04-09] MEDS ORDERED: PANTOprazole 40 MG TAB PO SCH (09:00)
--- NOTE | 2019-04-09 10:23 | Ultrasound Report ---
US duplex portal hepatic veins HISTORY: 53 years-old Male decompensated cirrhosis cirrhotic liver disease COMPARISON: Ultrasound study 02/25/2019, CT abdomen and pelvis 02/24/2019 TECHNIQUE: Multiple real-time sonographic images of the abdominal right upper quadrant were obtained assessing grayscale appearance, color and spectral flow FINDINGS: Cirrhotic liver disease with upper abdominal ascites redemonstrated. Study is limited secondary to la ck of patient cooperation. Patent portal vein with bidirectional flow redemonstrated. The visualized intrahepatic portal veins also appear patent. Recanalization of the prominently dilated umbilical vei n, unchanged from comparison CT. Patent splenic and hepatic veins. IMPRESSION: 1. Limited study as above. 2. Cirrhotic liver disease with mild upper abdominal ascites redemonstrated. 3. Patent main portal vein with bidirectional flow redemonstrated. 4. Recanalization of the prominently dilated umbilical vein. ACT 112: Negative or not required by law. The above report was generated using voice recognition software. It may contain grammatical, syntax o r spelling errors. Electronically signed by: Ad Brooks M.D. 04/09/2019 10:22 AM
[2019-04-09] MEDS ORDERED: NYSTATIN 30 ML, DEXAMETHASONE CONC 3.75 MG, DiphenhydrAMINE Syrup 300 MG, ORA-SWEET SYR... PO PRN (10:47)
[2019-04-09] MEDS ORDERED: cefTRIAXone SODIUM 2,000 MG in DEXTROSE 5% 50 ML IV SCH (12:30)
[2019-04-09] MEDS ORDERED: POTASSIUM CHLORIDE 20 MEQ TABCR PO STA (14:08)
--- NOTE | 2019-04-09 18:41 | Discharge Summary ---
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 He has had frequent hospitalizations over the past few months due to decompensations and hepatic encephalopathy. He was most recently admitted from 03/21 - 03/25 for hepatic encephalopathy. He was maintained on his Lactulose/Rifaximin, treated with Prednisolone and ultimately discharged home on steroids due to concerns for EtOH cirrhosis. Patient returns today with complaints of 1 day of fatigue/lethargy/imbalance and cognitive slowing. He denies fevers/chills/sweats. Denies CP/palpitations/co ugh/SOB/abdominal pain or distention. Denies melena/hematochezia. Denies dysuria but states that he did have some increased urination this AM - he urinated 5 times this AM and had 3 BMs. Otherwise no acute complaints. Denies EtOH use, Tylenol use. He is compliant with his medications and has not missed any doses. ER Course: No treatments administered Principal Diagnosis esld Discharge Exam Constitutional WD/WN, vitals as above + ill appearing Eyes + scleral abnormality (icteric ) ENMT external ear and nose normal, oropharynx normal Respiratory normal respiratory effort, lungs clear to auscultation Cardiovascular RRR, no murmur, no edema Gastrointestinal (Abdomen) normal bowel sounds, soft, nontender, no hepatosplenomegaly Skin no rashes, warm and dry + jaundice venous changes on abd Psychiatric A+Ox3, euthymic affect Discharge Data Allergies Allergy/AdvReac Type Severity Reaction Status Date / Time No Known Allergies Allergy Verified 04/08/19 18:57 Consultations 04/08/19 18:24 ED Decision to Admit Stat 04/08/19 21:12 Consult Gastroenterology Routine Ordered Studies 04/09/19 09:12 US duplex portal hepatic veins Routine Hospital Course (1) End stage liver disease: 53yo C male with history of ESLD secondary to hemochromatosis, remote EtOH use presents with one day of fatigue/lethargy/imbalance and cognitive slowing. Symptoms similar to prior presentation of hepatic encephalopathy. He is afebrile, HD stable. No overt evidence of infection. Patient's hepatic parameters to include PT/INR, LFTs and Platelets are poor, however are near his baseline. He is compliant with his medications. Ammonia normal at 17.7. Suspect hepatic encephalopathy. The following was the medical management during stay here: AMS -Administer Lactulose QID and Rifaximin BID -UA with 1+ Nitrites and LE. Started on Rocephin here End stage liver disease -ESLD secondary to hemochromatosis, remote history of EtOH abuse. MELD score = 31. Patient is being placed on the transplant list in April. He has had an elevated AFP in the past (01/26/19 level was 7.2) -Continue Lactulose and Rifaximin as above. -Continue Lasix and Spironolactone -Continue Nadolol -Patient was discharged home on Prednisolone 40mg po daily. He has been taking this. 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 Patient has no recent EtOH use. No acute inflammatory/hepatitis conditions. Will taper steroids here starting at 30mg , may cont at tertiary center -Transfer to [facility] for further management Hyponatremia -Patient with chronic hyponatremia in setting of ESLD. Kq=653. No seizures. Baseline values 122-130 -Gentle IVF, NSS at 80mL/hr x 1 liter -Repeat labs Na123 Anemia -H/H near baseline. No active bleeding -Continue to monitor Portal hypertension -Chronic. Do not suspect GIB at this time. HR=67 -Continue Nadolol GERD -Chronic. Well controlled -Continue Omeprazole At time of d/c, pt had no other acute concerns or complaints. Total Time Total Time Spent Total Time Spent (In Minutes): 50 Discharge Plan Discharge Items Patient Disposition: Transfer Acute Care Hospital Reason For Visit: AMS Discharge Diagnosis: ESLD Activity: Per Instructions section Non-emergency contact: Primary Care Provider Call non-emergency contact if: you have any medication questions, your symptoms worsen, your pain is not controlled and your temperature is above 101.5 Follow-up/Referrals: Dom Benton [Primary Care Provider] - Diet: Low Sodium (2gm) Addtl Attending Provider Instructions: AMS (altered mental status): 53yo C male with history of ESLD secondary to hemochromatosis, remote EtOH use presents with one day of fatigue/lethargy/imbalance and cognitive slowing. Symptoms similar to prior presentation of hepatic encephalopathy. He is afebrile, HD stable. No overt evidence of infection. Patient's hepatic parameters to include PT/INR, LFTs and Platelets are poor, however are near his baseline. He is compliant with his medications. Ammonia normal at 17.7. Suspect hepatic encephalopathy. Patient with no appreciable ascites on exam, no abdominal tenderness. Do not suspect SBP. H/H stable, no history of melena/hematochezia. Do not suspect GIB. As above, liver labs are near baseline, do not suspect PVT -Admit to medical floor -Administer Lactulose QID and Rifaximin BID -UA with 1+ Nitrites and LE. Started on Rocephin here (2) End stage liver disease: ESLD secondary to hemochromatosis, remote history of EtOH abuse. MELD score = 31. Patient is being placed on the transplant list in April. He has had an elevated AFP in the past (01/26/19 level was 7.2) -Continue Lactulose and Rifaximin as above. -Continue Lasix and Spironolactone -Continue Nadolol -Patient was discharged home on Prednisolone 40mg po daily. He has been taking this. 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 Patient has no recent EtOH use. No acute inflammatory/hepatitis conditions. Will taper steroids to 30mg po daily x 3 days, 20mg po daily x 3 days then 10mg x 3 days. Appreciate GI input on this issue. -Transfer to [facility] (3) Hyponatremia: Patient with chronic hyponatremia in setting of ESLD. Hr=628. No seizures. Baseline values 122-130 -Gentle IVF, NSS at 80mL/hr x 1 liter -Repeat labs Na123 (4) Anemia: H/H near baseline. No active bleeding -Continue to monitor (5) Portal hypertension: Chronic. Do not suspect GIB at this time. HR=67 -Continue Nadolol (6) GERD (gastroesophageal reflux disease): Chronic. Well controlled -Continue Omeprazole Pending Studies at Discharge: No Stand-Alone Forms: My [facility] Skilled Items Patient informed of condition?: Yes DNR: No Discharge Level of Care: Other Communicable Disease: No Discharge Prognosis: Stable Lines: None Urinary Catheter: No Medications and DC Order Prescriptions: Continued nadolol 20 mg tablet 20 mg PO DAILY RF: 0 Xifaxan 550 mg Tablet 550 mg PO BID Qty: 60 RF: 0 lactulose 10 gram/15 mL solution 30 ml PO QID Qty: 0 RF: 0 ergocalciferol (vitamin D2) [Vitamin D2] 50,000 unit capsule 50,000 unit PO SA RF: 0 magnesium oxide 400 mg (241.3 mg magnesium) tablet 400 mg PO BID RF: 0 spironolactone 100 mg tablet 100 mg PO QAM RF: 0 omeprazole 20 mg Capsule,Delayed Release(Dr/Ec) 20 mg PO QAM RF: 0 zinc 50 mg Tablet 50 mg PO BID RF: 0 furosemide 20 mg Tablet 40 mg PO QAM RF: 0 metoprolol succinate 25 mg tablet extended release 24 hr 25 mg PO DAILY RF: 0 prednisolone sodium phosphate [Pediapred] 5 mg base/5 mL (6.7 mg/5 mL) solution 40 mg PO DAILY 28 Days Qty: 1120 RF: 0 Discharge Orders: Discharge Order (Routine); Ordered 04/09/19 Ordered By: Margarito Lux Admission Data Admit Date/Time: 04/08/19 19:58 Attending Provider: Marvel Kahn Admit Provider: Ivon Aaron Primary Care Provider: Dom Benton Other Providers: Ivon Aaron ; Donnell Bone Other Interventions: Discharge Summary Assessment (RN) Last Done: 04/09/19 20:17 DC Date/Time DO NOT enter until pt leaves facility: 04/09/19 20:40 Supervising Physician Co-Signing Physician Notes I saw the patient on the day of discharge and confirmed srinivasan portions of the history and physical examination. I agree with the impression and plan as noted above. With MELD score = 31, after speaking with GI service, arrangements made for transfer [place] [facility] [place]. I personally called the [facility] transfer line and spoke with accepting physician, Dr. Mliton, who accepted the patient in transfer pending bed availability. The patient was transferred via S ground ambulance. I consented patient to transfer and provided transfer orders for EMS. I spent 50 minutes in seeing the patient, discusing with consultants, and the above activities required for transfer. Resident Activity Tracking Resident Involvement: Resident Care Provided Care Provided: Adult [facility]
== END 2019-04-09 20:40 | disposition short-term general hospital (02) ==
LOC: ED 16:22 → INTOOBSV 19:58 → 3W 19:58 → SUATTDRO 19:58 → 3W 20:40